=== PATIENT | female | born 1955 | race Caucasian/White ===

== ENCOUNTER 2020-11-16 20:03 | Emergency (ER) | payer MEDICARE ==
[2020-11-16 23:20] LABS: Absolute Lymphocytes (CBC) 1.1 K/uL (0.7-4.9); Basophils % 0.5 % (0-1.3); Hematocrit 35.6 % (36.0-45.0); Lymphocytes % 13.2 % (15.3-44.8)
[2020-11-16 23:24] LABS: Protime INR 1.03
[2020-11-17 00:08] LABS: ALT/SGPT 32 U/L (12-78); AST/SGOT 14 U/L (15-37); Albumin 3.2 g/dL (3.4-5.0); Alkaline Phosphatase 144 U/L (45-117); BUN Blood Urea Nitrogen 19 mg/dL (7-18); Bicarbonate 25 mmol/L (21-32); Bilirubin Direct 0.1 mg/dL (0-0.2); Bilirubin Total 0.6 mg/dL (0.2-1.0); Ferritin 571.1 ng/mL (8-388); Lipase 116 U/L (73-393); Potassium 3.6 mmol/L (3.5-5.1); Protein, Total 7.8 g/dL (6.4-8.2); Sodium Level 132 mmol/L (136-145); Troponin (Emerg Dept Use Only) < 0.02 ng/mL (0.0-0.045)
[2020-11-17 00:09] LABS: Glucose Level 437 mg/dL (74-106)
[2020-11-17 01:03] LABS: SARS-COV-2 RT PCR POSITIVE (NEGATIVE)
[2020-11-17] MEDS ORDERED: NA CHLORIDE 0.9% 0 ML ONE (01:53)
[2020-11-17] MEDS ORDERED: NA CHLORIDE 0.9% 1,000 ML ONE ×2 (02:52→02:58)
[2020-11-17] MEDS ORDERED: INSULIN -REGULAR HUMAN 50 UNIT/0.5 ML ML ONE (02:58)
[2020-11-17 03:39] LABS: Urine Bacteria <20 /HPF (<20)
[2020-11-17 03:40] LABS: Urine RBC <5 /HPF (NONE SEEN)
[2020-11-17] MEDS ORDERED: CEFTRIAXONE/SWI 1gm 1 GM/10 ML SYR ONE (04:57)
[2020-11-17] MEDS ORDERED: AZITHROMYCIN 500 MG INJ IVPB ONE (04:57)
[2020-11-17] MEDS ORDERED: NA CHLORIDE 0.9% 250 ML ONE (04:58)
--- NOTE | 2020-11-17 04:59 | ER ---
Nurse's Notes [facility] Name: Leia Beckford Age: 65 yrs Sex: Female : 1955 Arrival Date: 11/16/2020 Time: 20:13 Bed 26 Private MD: Mita Luo Diagnosis: Coronavirus infection, unspecified;Constipation;Abdominal tenderness Presentation: 11/16 20:16 Chief complaint: Patient states: Covid positive 11/12 at [facility], sick since 11/04/20. Fever ll1 101 at home. O2 sat 91% at home. + diarrhea. Coronavirus screen: Client denies travel out of the [place] in the last 14 days. cough unrelated to allergies, difficulty breathing, fatigue, fever, shortness of breath, loss of taste or smell, Client presents with at least one sign or symptom that may indicate coronavirus-19. Standard/surgical mask placed on the client. Ebola Screen: Patient denies travel to an Ebola-affected area in the 21 days before illness onset. Initial Sepsis Screen: Does the patient meet any 2 criteria? HR > 90 bpm. No. Patient's initial sepsis screen is negative. Does the patient have a suspected source of infection? Yes: Productive cough/pneumonia. Risk Assessment: Do you want to hurt yourself or someone else? Patient reports no desire to harm self or others. Onset of symptoms was November 04, 2020. 20:16 Method Of Arrival: Ambulatory ll1 20:16 Acuity: RICK 3 ll1 Triage Assessment: 11/17 03:33 General: Appears in no apparent distress. Respiratory: Reports shortness of breath at ll2 rest on exertion Onset: The symptoms/episode began/occurred gradually, the patient has mild shortness of breath. Historical: - Allergies: 11/16 20:18 Latex, Natural Rubber; ll1 20:18 Hydrocodone-Acetaminophen; ll1 - PMHx: 20:18 Hypertension; Diabetes - IDDM; High Cholesterol; ll1 - PSHx: 20:18 cataract repair; Hysterectomy; ll1 - Immunization history:: Flu vaccine is not up to date. - Social history:: Smoking status: Patient denies any tobacco usage or history of. Screenin:00 Abuse screen: Denies threats or abuse. Nutritional screening: No deficits noted. ll2 Tuberculosis screening: No symptoms or risk factors identified. Fall Risk None identified. Assessment: 22:00 General: Appears in no apparent distress. Behavior is calm, cooperative, appropriate ll2 for age. Pain: Denies pain. Neuro: Level of Consciousness is awake, alert, obeys commands, Oriented to person, place, time, situation. Cardiovascular: Patient's skin is warm and dry. Respiratory: Airway is patent Respiratory effort is even, unlabored, Respiratory pattern is regular, symmetrical. GI: No signs and/or symptoms were reported involving the gastrointestinal system. : No signs and/or symptoms were reported regarding the genitourinary system. EENT: No signs and/or symptoms were reported regarding the EENT system. Derm: Skin is dry, Skin is pink, warm \T\ dry. Skin temperature is warm. Musculoskeletal: Circulation, motion, and sensation intact. Range of motion: intact in all extremities. 23:08 Reassessment: Patient and/or family updated on plan of care and expected duration. Pain ll2 level reassessed. Patient is alert, oriented x 3, equal unlabored respirations, skin warm/dry/pink. 11/17 00:15 Reassessment: Patient and/or family updated on plan of care and expected duration. Pain ll2 level reassessed. Patient is alert, oriented x 3, equal unlabored respirations, skin warm/dry/pink. 01:10 Reassessment: Patient and/or family updated on plan of care and expected duration. Pain ll2 level reassessed. Patient is alert, oriented x 3, equal unlabored respirations, skin warm/dry/pink. 02:15 Reassessment: Patient and/or family updated on plan of care and expected duration. Pain ll2 level reassessed. Patient is alert, oriented x 3, equal unlabored respirations, skin warm/dry/pink. 03:26 Reassessment: Patient and/or family updated on plan of care and expected duration. Pain ll2 level reassessed. Patient is alert, oriented x 3, equal unlabored respirations, skin warm/dry/pink. 03:33 Respiratory: Breath sounds are clear. ll2 04:20 Reassessment: Patient and/or family updated on plan of care and expected duration. Pain ll2 level reassessed. Patient is alert, oriented x 3, equal unlabored respirations, skin warm/dry/pink. 05:31 Reassessment: Patient and/or family updated on plan of care and expected duration. Pain ll2 level reassessed. Patient is alert, oriented x 3, equal unlabored respirations, skin warm/dry/pink. pt up for D/C, charge nurse allowed pt to stay until daylight. Vital Signs: 11/16 20:16 BP 133 / 62; Pulse 105; Resp 18; Temp 100.0; Pulse Ox 94% on R/A; Weight 79.38 kg; ll1 Height 5 ft. 5 in. (165.10 cm); Pain 4/10; 22:00 BP 129 / 48; Pulse 89; Resp 20; Pulse Ox 96% on R/A; ll2 23:00 BP 119 / 46; Pulse 91; Resp 20; Pulse Ox 96% on R/A; ll2 11/17 00:00 BP 125 / 48; Pulse 94; Resp 20; Pulse Ox 94% on R/A; ll2 01:09 BP 113 / 41; Pulse 82; Resp 20; Pulse Ox 95% on R/A; ll2 02:15 BP 121 / 53; Pulse 78; Resp 18; Pulse Ox 94% on R/A; ll2 11/16 20:16 Body Mass Index 29.12 (79.38 kg, 165.10 cm) ll1 ED Course: 11/16 20:13 Patient arrived in ED. am2 20:13 Mita Luo MD is Private Physician. am2 20:17 Triage completed. ll1 20:18 Arm band placed on. ll1 21:52 Stephanie Hall, SOL is Primary Nurse. ll2 21:55 Nic Duke MD is Attending Physician. tw4 22:00 Patient has correct armband on for positive identification. Placed in gown. Bed in low ll2 position. Call light in reach. Side rails up X 1. school bus monitor on. Pulse ox on. NIBP on. 22:00 No provider procedures requiring assistance completed. Inserted saline lock: 20 gauge ll2 in right antecubital area, using aseptic technique. Blood collected. 22:35 CXR XRAY In Process Unspecified. EDMS 11/17 00:18 COVID swab sent to lab. ll2 02:15 Inserted saline lock: 22 gauge in left antecubital area, using aseptic technique. em 02:30 CT Abd/Pelvis - IV Contrast Only In Process Unspecified. EDMS 04:02 Urine Dipstick--Ancillary (enter results) Sent. ll2 05:51 Blood Culture Adult (2) Sent. ll2 05:51 PT-INR Sent. ll2 05:51 CBC with Diff Sent. ll2 05:51 D-Dimer Sent. ll2 05:51 Lipase Sent. ll2 05:51 Procalcitonin Sent. ll2 05:51 Lactate Sent. ll2 05:51 Flu Sent. ll2 06:04 IV discontinued, intact, bleeding controlled, No redness/swelling at site. Pressure ll2 dressing applied. Administered Medications: 01:41 Drug: NS 0.9% 1000 ml Route: IV; Rate: 1 bolus; Site: right antecubital; 2 02:45 Follow up: Response: No adverse reaction; IV Status: Completed infusion; IV Intake: ll2 1000ml 02:41 Drug: Insulin Regular Human 5 units {Co-Signature: 2 (Stephanie Hall RN).} Route: IVP; Site: left antecubital; 04:26 Follow up: Response: No adverse reaction ll2 02:41 Drug: NS 0.9% 1000 ml Route: IV; Rate: 1 bolus; Site: left antecubital; 04:25 Follow up: Response: No adverse reaction; IV Status: Completed infusion; IV Intake: ll2 1000ml 04:53 Drug: AZITHromycin 500 mg Route: IVPB; Infused Over: 1 hrs; Site: left antecubital; 2 04:53 Drug: Rocephin - (cefTRIAXone) 1 grams Route: IVPB; Infused Over: 30 mins; Site: left ll2 antecubital; Intake: 02:45 IV: 1000ml; Total: 1000ml. ll2 04:25 IV: 1000ml; Total: 2000ml. ll2 Outcome: 03:33 Condition: stable ll2 04:59 Discharge ordered by . tw4 06:02 Discharged to home ambulatory. ll2 06:02 Discharge instructions given to patient, Instructed on discharge instructions, follow up and referral plans. medication usage, Demonstrated understanding of instructions, follow-up care, medications, Prescriptions given X 2. 06:05 Patient left the ED. ll2 Signatures: Dispatcher [employer] Juve Garvey, RN SOL Rosalina Antunez Winsy, RN RN wh Nic Duke MD MD tw4 Stephanie Hall, RN RN ll2 Dash Ribera RN RN ll1 Stephanie Hall RN ll2
--- NOTE | 2020-11-17 05:00 | EDPHYS ---
Physician Documentation [facility] Name: Leia Beckford Age: 65 yrs Sex: Female : 1955 Arrival Date: 11/16/2020 Time: 20:13 Bed 26 Private MD: Mita Luo ED Physician Nic Duke HPI: 11/17 04:08 This 65 yrs old Female presents to ER via Ambulatory with complaints of tw4 Shortness Of Breath, Fever. 04:08 The patient has shortness of breath at rest. Onset: The symptoms/episode began/occurred tw4 2 week(s) ago. Duration: The symptoms are continuous, and are steadily getting worse. The patient's shortness of breath is aggravated by exertion, is alleviated by nothing. The patient has not experienced similar symptoms in the past. PT STATES THAT SHE IS COVID POSITIVE. Historical: - Allergies: 11/16 20:18 Latex, Natural Rubber; ll1 20:18 Hydrocodone-Acetaminophen; ll1 - PMHx: 20:18 Hypertension; Diabetes - IDDM; High Cholesterol; ll1 - PSHx: 20:18 cataract repair; Hysterectomy; ll1 - Immunization history:: Flu vaccine is not up to date. - Social history:: Smoking status: Patient denies any tobacco usage or history of. ROS: 11/17 04:08 Constitutional: Negative for fever, chills, and weight loss, Eyes: Negative for injury, tw4 pain, redness, and discharge, Cardiovascular: Negative for chest pain, palpitations, and edema, Back: Negative for injury and pain, MS/Extremity: Negative for injury and deformity, Skin: Negative for injury, rash, and discoloration, Neuro: Negative for headache, weakness, numbness, tingling, and seizure. Respiratory: Positive for cough, shortness of breath. Abdomen/GI: Positive for abdominal pain, nausea, vomiting, abdominal cramps. Exam: 04:08 Constitutional: This is a well developed, well nourished patient who is awake, alert, tw4 and in no acute distress. Head/Face: Normocephalic, atraumatic. Chest/axilla: Normal chest wall appearance and motion. Nontender with no deformity. No lesions are appreciated. Cardiovascular: Regular rate and rhythm with a normal S1 and S2. No gallops, murmurs, or rubs. Normal PMI, no JVD. No pulse deficits. Respiratory: Lungs have equal breath sounds bilaterally, clear to auscultation and percussion. No rales, rhonchi or wheezes noted. No increased work of breathing, no retractions or nasal flaring. Abdomen/GI: Soft, non-tender, with normal bowel sounds. No distension or tympany. No guarding or rebound. No evidence of tenderness throughout. Back: No spinal tenderness. No costovertebral tenderness. Full range of motion. MS/ Extremity: Pulses equal, no cyanosis. Neurovascular intact. Full, normal range of motion. Neuro: Awake and alert, GCS 15, oriented to person, place, time, and situation. Cranial nerves II-XII grossly intact. Motor strength 5/5 in all extremities. Sensory grossly intact. Cerebellar exam normal. Normal gait. Vital Signs: 11/16 20:16 BP 133 / 62; Pulse 105; Resp 18; Temp 100.0; Pulse Ox 94% on R/A; Weight 79.38 kg; ll1 Height 5 ft. 5 in. (165.10 cm); Pain 4/10; 22:00 BP 129 / 48; Pulse 89; Resp 20; Pulse Ox 96% on R/A; ll2 23:00 BP 119 / 46; Pulse 91; Resp 20; Pulse Ox 96% on R/A; ll2 11/17 00:00 BP 125 / 48; Pulse 94; Resp 20; Pulse Ox 94% on R/A; ll2 01:09 BP 113 / 41; Pulse 82; Resp 20; Pulse Ox 95% on R/A; ll2 02:15 BP 121 / 53; Pulse 78; Resp 18; Pulse Ox 94% on R/A; ll2 11/16 20:16 Body Mass Index 29.12 (79.38 kg, 165.10 cm) ll1 MDM: 11/16 21:55 Patient medically screened. tw4 11/17 04:08 Antibiotic administration: Not indicated. Data reviewed: vital signs, nurses notes. tw Data interpreted: Pulse oximetry: Interpretation: normal. Counseling: I had a detailed discussion with the patient and/or guardian regarding: the historical points, exam findings, and any diagnostic results supporting the discharge/admit diagnosis, lab results, radiology results. 11/16 22:19 Order name: Blood Culture Adult (2) 11/16 22:19 Order name: BMP 11/16 22:19 Order name: C-Reactive Protein 11/16 22:19 Order name: CBC with Diff 11/16 22:19 Order name: D-Dimer 11/16 22:19 Order name: Ferritin [facility] 11/16 22:19 Order name: Flu [facility] 11/16 22:19 Order name: Lactate 11/16 22:19 Order name: LFT's [facility] 11/16 22:19 Order name: Lipase [facility] 11/16 22:19 Order name: Procalcitonin 11/16 22:19 Order name: PT-INR 11/16 22:19 Order name: Ptt, Activated 11/16 22:19 Order name: Strep 11/16 22:19 Order name: Troponin (emerg Dept Use Only); Complete Time: 01:00 11/17 01:04 Interpretation: Within normal limits: TROPED < 0.02. 11/16 22:19 Order name: Urine Microscopic Only; Complete Time: 04:19 11/16 22:19 Order name: Blood Culture [facility] 11/16 22:19 Order name: Basic Metabolic Panel; Complete Time: 01:00 EDTX 11/17 01:00 Interpretation: Normal except: NA 132; GLUC 437; CL 96; BUN 19; GFR 51. 11/16 22:19 Order name: C-Reactive Protein; Complete Time: 01:00 EDTX 11/17 01:01 Interpretation: Abnormal: C-REACTIVE PROT 88.20. 11/16 22:19 Order name: CBC with Automated Diff; Complete Time: 01:00 MS 11/17 01:02 Interpretation: Normal except: HGB 11.7; HCT 35.6; LYM% 13.2; ZAK% 79.4. 11/16 22:19 Order name: D-Dimer; Complete Time: 01:00 EDMS 11/17 01:03 Interpretation: Normal except: D-DIMER 504. 11/16 22:20 Order name: Ferritin; Complete Time: 01:00 EDMS 11/17 01:03 Interpretation: Abnormal: SONI 571.1. 11/16 22:20 Order name: Lactate; Complete Time: 01:00 EDMS 11/17 01:03 Interpretation: Abnormal: LAC 3.0. 11/16 22:20 Order name: Liver (Hepatic) Function; Complete Time: 01:00 EDMS 11/17 01:04 Interpretation: Normal except: AST 14; ALK 144; ALB 3.2; GLOB 4.6; A/G 0.7. 11/16 22:20 Order name: Lipase; Complete Time: 01:00 EDMS 11/16 22:20 Order name: Procalcitonin; Complete Time: 01:00 EDMS 11/17 01:04 Interpretation: Within normal limits: Procalcitonin < 0.05. 11/16 22:20 Order name: Protime (+INR); Complete Time: 01:00 EDTX 11/16 22:20 Order name: PTT, Activated Partial Thromb; Complete Time: 01:00 EDTX 11/16 22:19 Order name: CXR XRAY 11/16 22:19 Order name: EKG; Complete Time: 22:20 11/16 22:19 Order name: Cardiac monitoring; Complete Time: 23:29 11/16 22:19 Order name: Droplet/Contact Precautions; Complete Time: 23:29 11/16 22:19 Order name: EKG - Nurse/Tech; Complete Time: 23:29 11/16 22:19 Order name: IV Start; Complete Time: 23:29 11/16 22:19 Order name: Labs collected and sent; Complete Time: 23:29 11/16 22:19 Order name: O2 Per Protocol; Complete Time: 23:30 11/16 22:19 Order name: O2 Sat Monitoring; Complete Time: 03:11 11/16 22:19 Order name: Urine Dipstick-Ancillary (obtain specimen); Complete Time: 05:50 11/17 01:04 Order name: COVID-19/FLU A+B; Complete Time: 01:26 EDMS 11/17 01:27 Order name: CT Abd/Pelvis - IV Contrast Only 11/17 03:08 Order name: Lactate Sepsis 2 HR Follow-up; Complete Time: 04:18 EDMS 11/17 03:40 Order name: Urine Culture EDTX 11/17 03:50 Order name: Urine Dipstick--Ancillary (enter results) bb 11/17 03:51 Order name: Urine Dipstick-Ancillary EDMS 11/17 04:18 Order name: Lactate tw4 11/17 04:44 Order name: Glucose, Ancillary Testing; Complete Time: 04:54 EDMS 11/17 05:43 Order name: Throat Culture EDMS Administered Medications: 01:41 Drug: NS 0.9% 1000 ml Route: IV; Rate: 1 bolus; Site: right antecubital; 2 02:45 Follow up: Response: No adverse reaction; IV Status: Completed infusion; IV Intake: ll2 1000ml 02:41 Drug: Insulin Regular Human 5 units {Co-Signature: 2 (Stephanie Hall RN).} Route: IVP; Site: left antecubital; 04:26 Follow up: Response: No adverse reaction ll2 02:41 Drug: NS 0.9% 1000 ml Route: IV; Rate: 1 bolus; Site: left antecubital; 04:25 Follow up: Response: No adverse reaction; IV Status: Completed infusion; IV Intake: ll2 1000ml 04:53 Drug: AZITHromycin 500 mg Route: IVPB; Infused Over: 1 hrs; Site: left antecubital; ll2 04:53 Drug: Rocephin - (cefTRIAXone) 1 grams Route: IVPB; Infused Over: 30 mins; Site: left ll2 antecubital; Disposition: 11/17/20 04:59 Discharged to Home. Impression: Coronavirus infection, unspecified, Constipation, Abdominal tenderness. - Condition is Stable. - Discharge Instructions: Shortness of Breath, Abdominal Pain, Adult, Nfio-[id number], COVID-19. - Prescriptions for Zithromax Z- Leonel 250 mg Oral Tablet - take 1 tablet by ORAL route as directed for 5 days Day 1 - take two (2) tablets one time. Day 2, 3, 4 , 5 take one (1) tablet once daily.; 6 tablet. Albuterol Sulfate 90 mcg/actuation - inhale 1-2 puff by INHALATION route every 4-6 hours; 1 Inhaler. - Medication Reconciliation Form, Thank You Letter, Antibiotic Education, Prescription Opioid Use form. - Follow up: Private Physician; When: Upon discharge from the Emergency Department; Reason: If symptoms return, Recheck today's complaints, Continuance of care, Re-evaluation by your physician. - Problem is new. - Symptoms have improved. Signatures: Dispatcher [employer] [facility] Tiff Conte, RN RN Nic Duke MD MD tw4 Stephanie Hall, RN RN ll2 Dash Ribera RN RN ll1 Stephanie Hall RN ll2 Corrections: (The following items were deleted from the chart) 11/16 23:30 22:20 Influenza Screen (A ordered. [facility] 23:30 22:20 CORONAVIRUS+MR.LAB.BRZ ordered. [facility] 11/17 04:50 04:26 LACTATE+C.LAB.BRZ ordered. [facility] 06:05 04:59 11/17/2020 04:59 Discharged to Home. Impression: Coronavirus infection, ll2 unspecified; Constipation; Abdominal tenderness. Condition is Stable. Forms are Medication Reconciliation Form, Thank You Letter, Antibiotic Education, Prescription Opioid Use. Follow up: Private Physician; When: Upon discharge from the Emergency Department; Reason: If symptoms return, Recheck today's complaints, Continuance of care, Re-evaluation by your physician. Problem is new. Symptoms have improved. tw4
[2020-11-17 06:10] LABS: Urine Blood NEGATIVE (NEG); Urine Glucose 2+ (NEG); Urine Protein TRACE (NEG); Urine pH 5.5 (5.0-7.0)
--- NOTE | 2020-11-17 08:04 | RAD REPORT ---
EXAM DESCRIPTION: Jason Single View2 10:35 pm CLINICAL HISTORY: Shortness of breath COMPARISON: none FINDINGS: Mild bilateral pulmonary opacities. The heart is normal size IMPRESSION: Mild bilateral pulmonary opacities likely pneumonia
--- NOTE | 2020-11-17 10:55 | RAD REPORT ---
EXAM DESCRIPTION: CT - Abdomen Pelvis W Contrast - 11/17/2020 6:56 am CLINICAL HISTORY: The patient is 65 years old and is Female; ABD PAIN TECHNIQUE: Axial computed tomography images of the abdomen and pelvis with intravenous contrast. S agittal and coronal reformatted images were created and reviewed. This CT exam was performed using one or more of the following dose reduction techniques: automated exposure control, adjustment of t he mA and/or kV according to patient size, and/or use of iterative reconstruction technique. COMPARISON: No relevant prior studies available. FINDINGS: LUNG BASES: Minimal dependent densities in the lung bases are present. ABDOMEN: LIVER: The liver is enlarged and diffusely fatty. GALLBLADDER AND BILE DUCTS: No calcified stones. No ductal dilation. PANCREAS: No ductal dilation. No mass. SPLEEN: Unremarkable. ADRENALS: Unremarkable. No mass. KIDNEYS AND URETERS: Unremarkable. The kidneys enhance symmetrically. No obstructing renal or ur eteral calculus is seen. No hydronephrosis or hydroureter. No perinephric fluid or stranding. STOMACH AND BOWEL: The stomach is minimally filled with fluid and air. The small bowel is relati vely normal in caliber. A moderate amount stool is present throughout the colon. There is no mucosal thickening or evidence of bowel obstruction. PELVIS: APPENDIX: No findings to suggest acute appendicitis. BLADDER: The bladder is well distended. REPRODUCTIVE: The patient is status post hysterectomy. ABDOMEN and PELVIS: INTRAPERITONEAL SPACE: Unremarkable. No free air. No significant fluid collection. BONES/JOINTS: Mild degenerative changes spine is present. SOFT TISSUES: The soft tissues are normal. VASCULATURE: Atherosclerosis of the vasculature is present. The vessels are normal in caliber. No abdominal aortic aneurysm. LYMPH NODES: Unremarkable. No enlarged lymph nodes. IMPRESSION: 1. Dependent densities in the lung bases suggestive of atelectasis/scarring. 2. Moderate stool burden without obstruction. Electronically signed by: Lyndsay Nova MD 11/17/2020 2:46 AM DIETITIAN Due to temporary technical issues with the PACS/Fluency reporting system, reports are being signed by the in house radiologist without review as a courtesy to ensure prompt reporting. The interpreting r adiologist is fully responsible for the content of the report.
[2020-11-17 11:52] VITALS: BP 119/46; O2SAT 96
== END 2020-11-17 06:05 | disposition home or self-care (01) ==
LOC: ER 20:03
DX: U07.1 COVID-19 (principal); K59.00 Constipation, unspecified; E11.9 Type 2 diabetes mellitus without complications; E78.00 Pure hypercholesterolemia, unspecified; I10 Essential (primary) hypertension; Z79.4 Long term (current) use of insulin
CPT/HCPCS: 96361; 87040 ×2; 87070; 87088; 85025; 87086; 80048; 36415 ×2; 85610; 82947; 85379; 80076; 87081; 83605 ×3; 85730; 87077; 87186; 84484; 82728; 83690; 84145; 0240U; 86140; 74177; 71045; 96375; 96374; 99284; Q9967; J0456; J0696; J7050; J7030 ×2; 81003; 81015

== ENCOUNTER 2020-12-06 16:06 | Emergency (ER) | payer MEDICARE ==
--- OUTSIDE RECORDS SUMMARY | 2020-12-06 16:09 | XMS REPORT | Continuity of Care Document ---
:1955 Author Organization [facility] t Address [address] [place] [address] Care Team Providers Name Role Phone Unavailable Unavailable Unavailable Problems This patient has no known problems. Allergies, Adverse Reactions, Alerts This patient has no known allergies or adverse reactions. Medications This patient has no known medications. Procedures This patient has no known procedures. Encounters Start End Encounter Admission Attending Care Care Encounter Source Date/Time Date/Time Type Type Clinicians Facility Department ID 2020-11-30 2020-11-30 Outpatient [facility] [id number] 00:00[facility]00 00[facility]00[facility]00 [facility] 2020-11-26 2020-11-26 Outpatient [facility] [id number] 00:00[facility]00 00[facility]00[facility]00 [facility] 2020-11-25 2020-11-25 Outpatient [facility] [id number] 00:00:00 00[facility]00[facility] 2020-11-18 2020-11-18 Outpatient [facility] [id number] [facility] 2020-11-16 2020-11-16 Outpatient [facility] [id number] 00:00[facility]00 00[facility]00:00 [facility] 2020-11-05 2020-11-05 [facility] [id number] [facility] 2020-11-03 2020-11-03 [facility] [id number] [facility] 2020-10-20 2020-10-20 [facility] [id number] [facility] 2020-10-07 2020-10-07 [facility] [id number] [facility] 2020-10-07 2020-10-07 Out[facility] [id number] [facility] 2020-10-07 2020-10-07 [facility] [id number] [facility] 2020-10-04 2020-10-04 [facility] [id number] [facility] 2020-09-23 2020-09-23 Out[facility] [id number] [facility] 2020-08-31 2020-08-31 Outpatient [facility] [id number] [facility] Results This patient has no known results.
[2020-12-06] MEDS ORDERED: NA CHLORIDE 0.9% 1,000 ML ONE ×2 (18:49→21:46)
[2020-12-06 19:27] LABS: Absolute Lymphocytes (CBC) 1.9 K/uL (0.7-4.9); Basophils % 1.3 % (0-1.3); Hematocrit 37.8 % (36.0-45.0); Lymphocytes % 37.1 % (15.3-44.8); MPV 9.9 fL (7.6-11.3); RBC Red Blood Cell Count 4.26 M/uL (3.86-4.86)
[2020-12-06 19:38] LABS: Creatine Phosphokinase 52 U/L (26-192); Troponin I < 0.02 ng/mL (0.0-0.045)
[2020-12-06 19:45] LABS: ALT/SGPT 35 U/L (12-78); AST/SGOT 27 U/L (15-37); Albumin 3.9 g/dL (3.4-5.0); Alkaline Phosphatase 151 U/L (45-117); BUN Blood Urea Nitrogen 18 mg/dL (7-18); Bicarbonate 28 mmol/L (21-32); Bilirubin Direct 0.1 mg/dL (0-0.2); Bilirubin Total 0.4 mg/dL (0.2-1.0); Lipase 104 U/L (73-393); Magnesium 2.4 mg/dL (1.8-2.4); Potassium 3.9 mmol/L (3.5-5.1); Sodium Level 136 mmol/L (136-145)
[2020-12-06 19:51] LABS: Glucose Level 455 mg/dL (74-106)
[2020-12-06] MEDS ORDERED: INSULIN -REGULAR HUMAN 50 UNIT/0.5 ML ML ONE (21:45)
[2020-12-06 21:53] LABS: Urine Bacteria NONE SEEN /HPF (<20); Urine RBC <5 /HPF (NONE SEEN)
[2020-12-06 21:53] LABS: Urine Blood NEGATIVE (NEG); Urine Glucose 2+ (NEG); Urine Protein NEGATIVE (NEG); Urine pH 5.5 (5.0-7.0)
--- NOTE | 2020-12-06 23:16 | EDPHYS ---
Physician Documentation [facility] Name: Leia Beckford Age: 65 yrs Sex: Female : 1955 Arrival Date: 12/06/2020 Time: 16:11 Bed 25 Private MD: Mita Luo ED Physician Yair Jarquin HPI: 12/06 18:05 This 65 yrs old Female presents to ER via Ambulatory with complaints of High cp Blood Sugar. 18:05 The patient or guardian reports hyperglycemia, that was potentially precipitated by no cp particular event. Onset: The symptoms/episode began/occurred gradually. 18:05 Associated signs and symptoms: Pertinent positives: flank pain, Pertinent negatives: cp abdominal pain, chest pain. 18:05 Current symptoms: In the emergency department the patient's symptoms are unchanged from cp the initial presentation, despite home interventions. 18:05 Patient reports she currently takes prescribed glimepiride and has been prescribed cp Trulicity but is unable to afford medication. Patient reports she has been intolerant of Metfomin in the past. Historical: - Allergies: 16:26 Hydrocodone-Acetaminophen; ca1 16:26 Latex, Natural Rubber; ca1 - Home Meds: 16:26 Glimepiride Oral [Active]; rosuvastatin oral oral [Active]; Lisinopril Oral [Active]; ca1 - PMHx: 16:26 Diabetes - IDDM; High Cholesterol; Hypertension; Diabetes - NIDDM; ca1 - PSHx: 16:26 cataract repair; Hysterectomy; ca1 - Immunization history:: Flu vaccine is not up to date. - Social history:: Smoking status: Patient denies any tobacco usage or history of. ROS: 18:10 Constitutional: Negative for body aches, chills, fever, poor PO intake. cp 18:10 Eyes: Negative for injury, pain, redness, and discharge. cp 18:10 ENT: Negative for ear pain, sore throat, difficulty swallowing, difficulty handling secretions. 18:10 Cardiovascular: Negative for chest pain, edema, palpitations. 18:10 Respiratory: Negative for cough, shortness of breath, wheezing. 18:10 Abdomen/GI: Negative for abdominal pain, nausea, vomiting, and diarrhea, constipation. 18:10 Back: Positive for flank pain. 18:10 : Negative for hematuria, burning with urination. 18:10 Neuro: Negative for altered mental status, dizziness, headache, weakness. 18:10 Endocrine: Positive for polyuria. 18:10 All other systems are negative. Exam: 18:15 Constitutional: The patient appears in no acute distress, alert, awake, comfortable, cp non-diaphoretic, non-toxic, well developed, well nourished. 18:15 Head/Face: Normocephalic, atraumatic. cp 18:15 Eyes: Periorbital structures: appear normal, Conjunctiva: normal, no exudate, no cp injection, Sclera: no appreciated abnormality, Lids and lashes: appear normal, bilaterally. 18:15 ENT: External ear(s): are unremarkable, Nose: is normal, Mouth: Lips: moist, Oral cp mucosa: moist, Posterior pharynx: Airway: no evidence of obstruction, patent. 18:15 Neck: ROM/movement: is normal, is supple, without pain, no range of motions limitations, no nuchal rigidity. 18:15 Chest/axilla: Inspection: normal, Palpation: is normal, no crepitus, no tenderness. 18:15 Cardiovascular: Rate: normal, Rhythm: regular, Edema: is not appreciated, JVD: is not appreciated. 18:15 Respiratory: the patient does not display signs of respiratory distress, Respirations: normal, no use of accessory muscles, no retractions, labored breathing, is not present, Breath sounds: are clear throughout, no decreased breath sounds. 18:15 Abdomen/GI: Inspection: abdomen appears normal, Palpation: abdomen is soft and non-tender, in all quadrants. 18:15 Back: pain, that is mild, of the mid back area, ROM is normal. 18:15 Skin: cellulitis, is not appreciated, no rash present. 18:15 Neuro: Orientation: to person, place \T\ time. Mentation: is normal, Cerebellar function: is grossly normal, Motor: moves all fours, strength is normal, Sensation: is normal. 19:40 ECG was reviewed by the Attending Physician. cp Vital Signs: 16:17 BP 126 / 53; Pulse 88; Resp 16 S; Temp 97.1(TE); Pulse Ox 98% on R/A; Weight 72.57 kg ca1 (R); Height 5 ft. 5 in. (165.10 cm) (R); Pain 0/10; 18:00 BP 137 / 59; Pulse 70; Resp 18; Pulse Ox 98% on R/A; zb 19:07 BP 123 / 71; Pulse 69; Resp 16; Pulse Ox 96% on R/A; zb 20:00 BP 115 / 69; Pulse 65; Resp 16; Pulse Ox 100% on R/A; zb 21:03 BP 128 / 90; Pulse 66; Resp 16; Pulse Ox 98% on R/A; zb 22:30 BP 136 / 65; Pulse 76; Resp 16; Pulse Ox 98% on R/A; zb 23:30 BP 137 / 62; Pulse 63; Resp 16; Pulse Ox 97% on R/A; zb 16:17 Body Mass Index 26.63 (72.57 kg, 165.10 cm) ca1 MDM: 17:52 Patient medically screened. trevor 19:00 Differential diagnosis: DKA, sepsis, UTI. cp 23:15 Data reviewed: vital signs, nurses notes, lab test result(s), radiologic studies, CT cp scan. 23:15 Counseling: I had a detailed discussion with the patient and/or guardian regarding: the cp historical points, exam findings, and any diagnostic results supporting the discharge/admit diagnosis, lab results, radiology results, the need for outpatient follow up, for definitive care, a family practitioner, to return to the emergency department if symptoms worsen or persist or if there are any questions or concerns that arise at home. Response to treatment: the patient's symptoms have markedly improved after treatment, Serum glucose markedly improved. Labs not indicative of DKA. Will discharge to home for continued monitoring. 12/06 16:39 Order name: Glucose, Ancillary Testing; Complete Time: 17:51 EDMS 12/06 17:51 Interpretation: Reviewed. cp 12/06 18:03 Order name: Basic Metabolic Panel cp 12/06 18:03 Order name: CBC with Diff; Complete Time: 20:03 cp 12/06 21:44 Interpretation: Reviewed. cp 12/06 18:03 Order name: Hepatic Function cp 12/06 18:03 Order name: Lipase cp 12/06 18:03 Order name: Urine Microscopic Only cp 12/06 18:03 Order name: Ketone, Serum cp 12/06 19:31 Interpretation: Within normal limits: ACET NEG. cp 12/06 18:04 Order name: Magnesium cp 12/06 18:04 Order name: Basic Metabolic Panel EDMS 12/06 18:08 Order name: Troponin I cp 12/06 18:08 Order name: CK cp 12/06 18:09 Order name: Troponin I; Complete Time: 20:03 EDMS 12/06 20:03 Interpretation: Within normal limits: TROP < 0.02. cp 12/06 18:09 Order name: Creatine Phosphokinase; Complete Time: 20:03 EDMS 12/06 21:06 Order name: Urine Dipstick--Ancillary (enter results) tt3 12/06 18:03 Order name: IV Saline Lock; Complete Time: 18:31 cp 12/06 18:03 Order name: Labs collected and sent; Complete Time: 18:31 cp 12/06 18:03 Order name: Urine Dipstick-Ancillary (obtain specimen); Complete Time: 20:48 cp 12/06 18:08 Order name: EKG; Complete Time: 18:09 cp 12/06 18:08 Order name: EKG - Nurse/Tech; Complete Time: 19:30 cp 12/06 21:13 Order name: CT Stone Protocol 12/06 22:33 Order name: Accucheck Blood Glucose; Complete Time: 23:27 cp 12/06 23:46 Order name: Glucose, Ancillary Testing EDMS EC:40 Rate is 64 beats/min. Rhythm is regular. FL interval is normal. QRS interval is normal. cp QT interval is normal. Interpreted by me. Reviewed by me. Administered Medications: 18:31 Drug: NS 0.9% 1000 ml Route: IV; Rate: 1 bolus; Site: right antecubital; zb 19:00 Follow up: Response: No adverse reaction; IV Status: Completed infusion; IV Intake: zb 1000ml 21:38 Drug: NovoLIN R 10 units {Co-Signature: usha (Clara Barr RN).} Route: Sub-Q; Site: zb left lower abdomen; 23:28 Follow up: Response: No adverse reaction; Marked relief of symptoms zb 21:39 Drug: NS 0.9% 1000 ml Route: IV; Rate: 1 bolus; Site: right antecubital; zb 23:29 Follow up: Response: No adverse reaction; IV Status: Completed infusion; IV Intake: zb 1000ml Point of Care Testing: Blood Glucose: 16:17 Blood Glucose: High (>450 mg/dL); ca1 Ranges: Critical Glucose Levels:Adult <50 mg/dl or >400 mg/dl <40 mg/dl or >180 mg/dl Disposition: 12/07 09:47 Co-signature as Attending Physician, Yair Jarquin MD I agree with the assessment and [facility] plan of care. Disposition: 12/06/20 23:16 Discharged to Home. Impression: Diabetes mellitus due to underlying condition with hyperglycemia. - Condition is Stable. - Discharge Instructions: Form - Daily Diabetes Record, Blood Glucose Monitoring, Adult, Diabetes Mellitus and Food. - Medication Reconciliation Form, Thank You Letter, Antibiotic Education, Prescription Opioid Use form. - Follow up: Mita Luo MD; When: Tomorrow; Reason: Recheck today's complaints. - Problem is new. - Symptoms have improved. Signatures: Dispatcher [employer] EDYair Phillips MD MD cha Page, Corey, PA PA cp Acob, Cheryl RN Koki Oconnell RN RN zb Elena Antunez RN ea Corrections: (The following items were deleted from the chart) 00:18 12/06 23:16 12/06/2020 23:16 Discharged to Home. Impression: Diabetes mellitus due to zb underlying condition with hyperglycemia. Condition is Stable. Forms are Medication Reconciliation Form, Thank You Letter, Antibiotic Education, Prescription Opioid Use. Follow up: Mita Luo; When: Tomorrow; Reason: Recheck today's complaints. Problem is new. Symptoms have improved. cp
--- NOTE | 2020-12-06 23:16 | ER ---
Nurse's Notes [facility] Name: Leia Beckford Age: 65 yrs Sex: Female : 1955 Arrival Date: 12/06/2020 Time: 16:11 Bed 25 Private MD: Mita Luo Diagnosis: Diabetes mellitus due to underlying condition with hyperglycemia Presentation: 12/06 16:17 Chief complaint: Patient states: BGL at 1600 was 595. Had Covid-19 on 11/04/2020, had to ca1 take steroids. Yesterday, had chest pains and SOB while walking my dog. Had mid and lower back pain yesterday, tingling on L pinky, L ring finger and L toes yesterday. This morning BGL 371 at 1400 BGL 523. HR yesterday 120. BGL in triage is HI. Pt has Diabetes NIDDM. Coronavirus screen: Client reports previous positive COVID test result. Date of collection: November 04, 2020. Ebola Screen: Patient negative for fever greater than or equal to 101.5 degrees Fahrenheit, and additional compatible Ebola Virus Disease symptoms Patient denies exposure to infectious person. Patient denies travel to an Ebola-affected area in the 21 days before illness onset. No symptoms or risks identified at this time. Initial Sepsis Screen: Does the patient meet any 2 criteria? No. Patient's initial sepsis screen is negative. Does the patient have a suspected source of infection? No. Patient's initial sepsis screen is negative. Risk Assessment: Do you want to hurt yourself or someone else? Patient reports no desire to harm self or others. Onset of symptoms was December 06, 2020. 16:17 Method Of Arrival: Ambulatory ca1 16:17 Acuity: RICK 2 ca1 Historical: - Allergies: 16:26 Hydrocodone-Acetaminophen; ca1 16:26 Latex, Natural Rubber; ca1 - Home Meds: 16:26 Glimepiride Oral [Active]; rosuvastatin oral oral [Active]; Lisinopril Oral [Active]; ca1 - PMHx: 16:26 Diabetes - IDDM; High Cholesterol; Hypertension; Diabetes - NIDDM; ca1 - PSHx: 16:26 cataract repair; Hysterectomy; ca1 - Immunization history:: Flu vaccine is not up to date. - Social history:: Smoking status: Patient denies any tobacco usage or history of. Screenin:03 Abuse screen: Denies threats or abuse. Denies injuries from another. Nutritional zb screening: No deficits noted. Tuberculosis screening: No symptoms or risk factors identified. Fall Risk None identified. Assessment: 18:00 General: Appears in no apparent distress. uncomfortable, Behavior is cooperative, zb anxious. Pain: Denies pain. Neuro: Level of Consciousness is awake, alert, obeys commands, Oriented to person, place, time, situation. Cardiovascular: Heart tones S1 S2 present Capillary refill < 3 seconds Patient's skin is warm and dry. Respiratory: Airway is patent Trachea midline Respiratory effort is even, unlabored, Respiratory pattern is regular, symmetrical. GI: No signs and/or symptoms were reported involving the gastrointestinal system. Abdomen is round non-distended. : No signs and/or symptoms were reported regarding the genitourinary system. EENT: No signs and/or symptoms were reported regarding the EENT system. Derm: Skin is intact, is healthy with good turgor, Skin is dry, Skin is normal. Musculoskeletal: Range of motion: intact in all extremities. 19:00 Reassessment: Patient appears in no apparent distress at this time. Patient and/or zb family updated on plan of care and expected duration. Pain level reassessed. Patient is alert, oriented x 3, equal unlabored respirations, skin warm/dry/pink. pt awaiting results. 20:00 Reassessment: Patient appears in no apparent distress at this time. Patient and/or zb family updated on plan of care and expected duration. Pain level reassessed. Patient is alert, oriented x 3, equal unlabored respirations, skin warm/dry/pink. 21:00 Reassessment: Patient appears in no apparent distress at this time. Patient and/or zb family updated on plan of care and expected duration. Pain level reassessed. Patient is alert, oriented x 3, equal unlabored respirations, skin warm/dry/pink. patient awaiting results. notified ECP that patient wants a CT of kidneys. 22:00 Reassessment: Patient appears in no apparent distress at this time. Patient and/or zb family updated on plan of care and expected duration. Pain level reassessed. Patient is alert, oriented x 3, equal unlabored respirations, skin warm/dry/pink. 23:00 Reassessment: Patient appears in no apparent distress at this time. Patient and/or zb family updated on plan of care and expected duration. Pain level reassessed. Patient is alert, oriented x 3, equal unlabored respirations, skin warm/dry/pink. IV fluids infusing. 12/07 00:17 Reassessment: IV fluids completed. d/c instructions given. education on diet and food. zb pt ambulatory gait even and steady. Vital Signs: 12/06 16:17 BP 126 / 53; Pulse 88; Resp 16 S; Temp 97.1(TE); Pulse Ox 98% on R/A; Weight 72.57 kg ca1 (R); Height 5 ft. 5 in. (165.10 cm) (R); Pain 0/10; 18:00 BP 137 / 59; Pulse 70; Resp 18; Pulse Ox 98% on R/A; zb 19:07 BP 123 / 71; Pulse 69; Resp 16; Pulse Ox 96% on R/A; zb 20:00 BP 115 / 69; Pulse 65; Resp 16; Pulse Ox 100% on R/A; zb 21:03 BP 128 / 90; Pulse 66; Resp 16; Pulse Ox 98% on R/A; zb 22:30 BP 136 / 65; Pulse 76; Resp 16; Pulse Ox 98% on R/A; zb 23:30 BP 137 / 62; Pulse 63; Resp 16; Pulse Ox 97% on R/A; zb 16:17 Body Mass Index 26.63 (72.57 kg, 165.10 cm) ca1 ED Course: 16:11 Patient arrived in ED. mr 16:11 Mita Luo MD is Private Physician. mr 16:25 Triage completed. ca1 16:26 Arm band placed on right wrist. ca1 17:51 Yair Lopez PA is PHCP. cp 17:51 Yair Jarquin MD is Attending Physician. cp 18:07 Koki Trujillo RN is Primary Nurse. zb 18:30 Inserted saline lock: 20 gauge in right antecubital area, using aseptic technique. zb Blood collected. 19:03 Patient has correct armband on for positive identification. Bed in low position. Call zb light in reach. Side rails up X 1. Pulse ox on. NIBP on. Door closed. Noise minimized. Warm blanket given. 19:51 Notified Nurse Practitioner and/or Physician Forestry And Wildlife Manager of a critical lab result(s), sg glucose 455. 23:15 Mita Luo MD is Referral Physician. cp 23:41 CT Stone Protocol In Process Unspecified. EDMS 12/07 00:17 No provider procedures requiring assistance completed. IV discontinued, intact, zb bleeding controlled, No redness/swelling at site. Pressure dressing applied. Administered Medications: 12/06 18:31 Drug: NS 0.9% 1000 ml Route: IV; Rate: 1 bolus; Site: right antecubital; zb 19:00 Follow up: Response: No adverse reaction; IV Status: Completed infusion; IV Intake: zb 1000ml 21:38 Drug: NovoLIN R 10 units {Co-Signature: usha (Clara Barr RN).} Route: Sub-Q; Site: zb left lower abdomen; 23:28 Follow up: Response: No adverse reaction; Marked relief of symptoms zb 21:39 Drug: NS 0.9% 1000 ml Route: IV; Rate: 1 bolus; Site: right antecubital; zb 23:29 Follow up: Response: No adverse reaction; IV Status: Completed infusion; IV Intake: zb 1000ml Point of Care Testing: Blood Glucose: 16:17 Blood Glucose: High (>450 mg/dL); ca1 Ranges: Intake: 23:29 IV: 1000ml; Total: 1000ml. zb Outcome: 23:16 Discharge ordered by . cp 12/07 00:18 Discharged to home ambulatory. zb Condition: stable Discharge instructions given to patient, Instructed on discharge instructions, follow up and referral plans. Demonstrated understanding of instructions, follow-up care. 00:18 Patient left the ED. zb Signatures: Dispatcher [employer] EDNY Prasanth Rawls RN RN sg Rivera, Yair Wagner, DEMETRI PA Linda Holland RN RN ca1 Brown, Zipporah, RN RN zb Elena Antunez RN ea Corrections: (The following items were deleted from the chart) 12/06 16:39 16:39 Blood Glucose: Blood Glucose Reading=High (>450 mg/dL). ca1 ca1
[2020-12-07 03:45] VITALS: TEMP 97.1
[2020-12-07 03:52] VITALS: BP 137/62; O2SAT 97
--- NOTE | 2020-12-07 11:02 | RAD REPORT ---
EXAM DESCRIPTION: CT - Stone Protocol - 12/07/2020 6:23 am CLINICAL HISTORY: 65 years, Female, FLANK PAIN COMPARISON: 11/17/2020. TECHNIQUE: Multiple transaxial tomograms of the abdomen and pelvis were performed from the lung base s to the symphysis pubis 3 mm slice thickness at 3 mm, without administration of IV and oral contrast . Multiplanar reformats in the sagittal and coronal plane were generated and reviewed. An individualized dose optimization technique, Automated Exposure Control, was utilized for the perfo rmed procedure. FINDINGS: The lack of IV and oral contrast limits evaluation of solid organs, subtle lesions cannot be excluded. The lung bases demonstrate questionable very minimal ill-defined areas of subpleural groundglass dens ities on CT series 201 image 160-160 atelectasis and/or less likely other process could be of co nsideration. Grossly the unopacified liver, gallbladder, pancreas, spleen and adrenal glands demonstrate to be wit hin normal limits, no significant focal lesions were identified. There is no evidence for bowel dil atation and/or free air. The kidneys demonstrate grossly unremarkable, no nephrolithiasis and/or hydronephrosis were identifie d. No focal masses were demonstrated. The ureters displays normal appearance with normal caliber, no hydroureter was seen. Grossly the unopacified stomach, small bowel and large bowel demonstrate to be within normal limits. Fecal residue and underdistention of the large bowel limits the evaluation. The appendix was not visu alized. The urinary bladder demonstrate to be within normal limits. The uterus is absent The aorta demonstrat e to be within normal limits. There is no retroperitoneal lymphadenopathy. There is no evidence f or ascites. The rest of the soft tissue demonstrate to be grossly unremarkable. IMPRESSION: No evidence of nephrolithiasis and/or hydronephrosis. Status post hysterectomy. Question very minimal ill-defined areas of subpleural groundglass densities residual findings of COVI D-19 pneumonia could be considered. Other processes such as influenza pneumonia and organizing pneumo fabiana, as can be seen with drug toxicity and connective tissue disease, can cause a similar imaging pat tern. (Reference: https://pubs.rsna.org/doi/full/10.1148/ryct.3456685073). Electronically signed by: Manish Odom MD 12/06/2020 10:15 PM CDT Due to temporary technical issues with the PACS/Fluency reporting system, reports are being signed by the in house radiologist without review as a courtesy to ensure prompt reporting. The interpreting r adiologist is fully responsible for the content of the report.
--- NOTE | 2020-12-08 04:35 | EKG ---
Test Date: 2020-12-06 Test Time: 18:29:33 Clinical Phlebotomist: GERONIMO MEASUREMENT RESULTS: Intervals: Rate: 64 KS: 166 QRSD: 70 QT: 424 QTc: 437 [place]: P: 22 KS: 166 QRS: 0 T: -1 INTERPRETIVE STATEMENTS: Normal sinus rhythm Possible Anterior infarct, age undetermined Abnormal ECG No previous ECG available for comparison Electronically Signed On 12-08-20 04:32:33 CDT by Pavel Gonzalez
== END 2020-12-07 00:18 | disposition home or self-care (01) ==
LOC: ER 16:06
DX: E11.65 Type 2 diabetes mellitus with hyperglycemia (principal); I10 Essential (primary) hypertension; E78.00 Pure hypercholesterolemia, unspecified; Z86.16 Personal history of COVID-19; Z88.5 Allergy status to narcotic agent; Z91.040 Latex allergy status; Z91.048 Other nonmedicinal substance allergy status
CPT/HCPCS: 85025; 80048; 36415; 82010; 83735; 82550; 82947 ×2; 80076; 84484; 83690; 76377; 74176; J7030 ×2; 81003; 81015; 93005; 96360; 96361; 96372; 99284

== ENCOUNTER 2023-06-14 10:48 | Emergency (ER) | payer OTHER, MEDICARE ==
--- OUTSIDE RECORDS SUMMARY | 2023-06-14 10:50 | XMS REPORT | Clinical Summary ---
:1955 Author Organization [facility] Address [address] [place], [place] [address] Care Team Providers Name Role Phone Unavailable Primary Care Provider Unavailable Allergies Not on File Medications Not on file Active Problems Not on file Social History Tobacco Use Types Packs/Day Years Used Date Smoking Tobacco: Never Assessed Sex Assigned at Date Recorded Not on file Last Filed Vital Signs Not on file Plan of Treatment Not on file Results Not on fileafter 06/14/2022 Insurance Payer Benefit Plan / Subscriber ID Effective Dates Phone Addre ss Type Group [employer]UE [employer]BS PPO POS 2019-Prese [phone] [address] PPO BLUE SHIELD OUT OF STATE [address] [place], [place] GENER[place] [id number]
--- OUTSIDE RECORDS SUMMARY | 2023-06-14 10:56 | XMS REPORT | Continuity of Care Document ---
:1955 Author Organization [facility] t Address [address] [place] [address] [place] [id number] Care Team Providers Name Role Phone Candelaria Tim MD Primary Care Physician CANDELARIA TIM Attending Clinician Unavailable Mita Luo Attending Clinician Unavailable GARRETT RUANO Attending Clinician Unavailable Garrett Ruano MD Attending Clinician Lab, Ang - Db Attending Clinician Unavailable Doctor Unassigned, [place] Attending Clinician Unavailable JUAN JOSE MONSIVAIS Attending Clinician Unavailable Nathan Law Attending Clinician Per Attending Clinician Unavailable Bryant Lyon MD Attending Clinician ASIF Attending Clinician Unavailable BRYANT LYON Attending Clinician Unavailable BRYANT LYON Attending Clinician Unavailable MAGALI CROSS Attending Clinician Unavailable Nathan Law Admitting Clinician Per Admitting Clinician Unavailable ASIF Admitting Clinician Unavailable Payers Payer Name Policy Type Policy Number Effective Date Expiration Date S jaye MEDICARE PART A [id number] 2018 \\T\\ B 00:00:00 [place] [id number] 2022 HEALTHCARE 00:00:00 MEDICARE SUPPLEMENT WELL[place]/AARP [id number] 2021 MCARE ADV CHOICE 00:00:00 PPO MEDICARE B-[place]: [id number] 2018 NOVITAS 00:00:00 SOLUTIONS AAR HEALTHCARE [id number] 2022 OPTIONS 00:00:00 (MEDICARE SUPPLEMENT) MEDICARE A-[place]: [id number] 2018 NOVITAS 00:00:00 SOLUTIONS - [facility] [id number] HEALTHCARE (MEDICARE REPLACEMENT/ADVA NTAGE - PPO) AAR Medicare 53 [id number] Common Advantage [facility] UNITED C1 [id number] 2020 Common HEALTHCARE DUAL 00:00:00 [facility] Problems Condition Condition Condition Status Onset Resolution Last Treating Co mments Source Name Details Category Date Date Treatment Clinician Date Hypertensi Hypertensi Disease Active U nivers on on 04-16 ity of 00:00: [place] 00 Medical Branch Mixed Mixed Disease Active Univers hyperlipid hyperlipid 04-16 it y of emia emia 00:00: [place] 00 Medical Branch Primary Primary Disease Active Univers osteoarthr osteoarthr 04-16 it y of itis of itis of 00:00: [place] left hand left hand 00 Medi rivera Branch Rotator Rotator Disease Active Univers cuff cuff 04-16 ity of syndrome syndrome 00:00: [place] of right of right 00 Medica l shoulder shoulder Branch Uncontroll Uncontroll Disease Active U nivers ed type 2 ed type 2 04-16 ity of diabetes diabetes 00:00: [place] mellitus mellitus 00 Medica l with with Branch hyperglyce hyperglyce curtis curtis Diabetes Diabetes Problem Active [place] mellitus Mellitus 04-16 da 00:00: Medical 00 Group Hyperlipid Hyperlipid Problem Active M atagor emia emia 04-16 da 00:00: Medical 00 Group Essential Essential Problem Active [place] hypertensi Hypertensi 04-16 da on on 00:00: Medical 00 Group Benign Benign Disease Active Overview: Univer s essential essential 10-24 Formattin i ty of hypertensi hypertensi 00:00: g of this [place] on on 00 note Medical might be Branch different from the original. Formattin g of this note might be different from the original. On lisinopri l HCTZ Well controlle d Multinodul Multinodul Disease Active Overview : Univers ar goiter ar goiter 10-24 Formattin i ty of 00:00: g of this [place] 00 note Medical might be Branch different from the original. Formattin g of this note might be different from the original. Diagnosed long time ago when she had lympahden opathy of neck TFT normal Refer to endocrine for evaluatio n of thyroid nodules Type 2 Type 2 Disease Active Overview: Univer s diabetes diabetes 10-24 Formattin ity of mellitus mellitus 00:00: g of this [place] as without without 00 note Medical complicati complicati might be Branch on on different from the original. Formattin g of this note might be different from the original. On glipizide taking 20 mg bid Concerned for hypoglyce curtis Does not want to take metformin as she heard" bad things" about it Unable to use sglt 2 inhibitor s as HO recurrent UTIs Tradjenta was expensive will try optum rx Will also try trulicity ( had CT neck done at [facility] and only had benign thyroid nodules )Advised to stop glipizide and start actos A1C -Oct 2022 -9.4June 2022 -8.8 Switch from tradjenta to trulicity -0.75mg weekly and increase to 1.5 mg weekly in 2 weeks Unable to afford both tradjenta + trulicuty Continue actos History of History Problem Active 2023-03-13 Memoria SARS-CoV-2 of 09-24 07:01:40 l SARS-CoV-2 00:00: Owen n Active 00 09/24/2019 Problem 03/13/2023 hospitaliz ed x1 [facility] [id number] Other Problem Common chronic Spirit pain - [facility] Kidney Kidney Problem Common stone stones Spirit - [facility] [id number] History of Problem 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 [facility] [id number] shelter Problem Com mon (current) Spirit use of - [facility] insulin [facility] [id number] Encounter Problem Com mon for Spirit examinatio - [facility]I n of eyes [facility] and vision [facility] without Medical abnormal Center findings [id number] Paresthesi Problem Com mon a of skin Spirit - [facility] [id number] Type 2 Problem Common diabetes Spirit mellitus - [facility] with [facility] [id number] Anesthesia Problem Co mmon of skin Spirit - [facility] [id number] Abnormal Problem Comm on ultrasound Spirit of neck - [facility] No known No known Disease Unive rs active active ity of problems problems [facility] Pain of Pain of Problem Active 2023-03-13 Me moria right right 07:01:40 l shoulder shoulder Owen n region region Active Problem 03/13/2023 [facility] Hyperchole Hyperchol Problem Active 2023-03-13 Memoria sterolemia esterolemi 07:01:40 l (disorder) a Owen n (disorder) Active Problem 03/13/2023 [facility] History of Past Illness Condition Condition Condition Status Onset Resolution Last Treating Co mments Source Name Details Category Date Date Treatment Clinician Date Complete Complete Problem 2023-03-13 2023-03-13 Memoria rotator rotator - 07:01:40 07:01:40 l cuff tear cuff tear 17:00: Herm fidel or rupture or rupture 00 of right of right shoulder, shoulder, not not specified specified as as traumatic traumatic 03/12/2023 03/13/2023 [facility] Allergies, Adverse Reactions, Alerts Allergy Allergy Status Severity Reaction(s) Onset Inactive Treating Comm ents Source Name Type Date Date Clinician NO KNOWN Drug Active Univers ALLERGIE Class ity of S [facility] Latex Latex Active Memoria l [place] HYDROcod HYDROcod Active Itching Memor ia one one (finding) l [place] acetamin acetamin Active itching Commo n ophen / ophen / Spirit hydrocod hydrocod - CHI one one [facility] [id number] Drug Active itching Common allergy [facility] Latex Allergy Active Mild to Rash [place] to moderate da substanc Medical e Group Social History Social Habit Start Date Stop Date Quantity Comments Source History of Tobacco Common [facility] - [facility] Use [facility] Sexual orientation [facility] [place] [facility] Gender identity Universit y [facility] Exposure to 2022-03-21 2022-03-[address] [facility] SARS-CoV-2 (event) 00:00:00 09:24:00 Medica l Branch Sex Ass[birth year] [facility] 00:00:00 00:00:00 MD Jarquin [facility] Center Smoking Status Start Date Stop Date Source Tobacco smoking consumption [facility] Medical unknown Branch Social History [facility] Medications Ordered Filled Start Stop Current Ordering Indication Dosage Frequency Signature Comments Components Source Medication Medication Date Date Medication? Clinician (SIG) Name Name emory Yes 1{each} inject 1 Unive rs glucose 8-29 Each under ity of sensor 15:52: the skin [place] (FREESTYLE 47 every 14 Medic al DENISHA 2 (fourteen) Branch SENSOR) Kit days. flash Yes 1{each} inject 1 Unive rs glucose 8-29 Each under ity of scanning 15:52: the skin [place] reader 47 once now. Medical (FREESTYLE Branch DENISHA 2 READER) [facility] flash Yes 1{each} inject 1 Unive rs glucose 8-29 Each under ity of sensor 15:52: the skin [place] (FREESTYLE 47 every 14 Medic al DENISHA 2 (fourteen) Branch SENSOR) Kit days. flash Yes 1{each} inject 1 Unive rs glucose 8-29 Each under ity of scanning 15:52: the skin [place] reader 47 once now. Medical (FREESTYLE Branch DENISHA 2 READER) [facility] dulaglutide Yes [id number] .75mg inject 1 Univers (TRULICITY) 8-28 Pen under ity of 0.75 mg/0.5 00:00: [place] mL PnIj 00 weekly. Medical Branch dulaglutide Yes [id number] .75mg inject 1 Univers (TRULICITY) 8-28 Pen under ity of 0.75 mg/0.5 00:00: the skin [place] mL PnIj 00 weekly. Medical Branch dulaglutide Yes [id number] .75mg inject 1 Univers (TRULICITY) 8-28 Pen under ity of 0.75 mg/0.5 00:00: the skin [place] mL PnIj 00 weekly. Medical Branch dulaglutide Yes [id number] .75mg inject 1 Univers (TRULICITY) 8-28 Pen under ity of 0.75 mg/0.5 00:00: the skin [place] mL PnIj 00 weekly. Medical Branch dulaglutide Yes [id number] .75mg inject 1 Univers (TRULICITY) 8-28 Pen under ity of 0.75 mg/0.5 00:00: the skin [place] mL PnIj 00 weekly. Medical Branch dulaglutide Yes [id number] .75mg inject 1 Univers (TRULICITY) 8-28 Pen under ity of 0.75 mg/0.5 00:00: the skin [place] mL PnIj 00 weekly. Medical Branch tirzepatide Yes [id number] 2.5mg inject 2.5 Univers (MOUNJARO) 8-23 mg under ity o f 2.5 mg/0.5 00:00: the skin [place] mL PnIj 00 weekly. Medical Branch tirzepatide Yes [id number] 5mg inject 5 Univers (MOUNJARO) 8-23 mg under ity o f 5 mg/0.5 mL 00:00: the skin [place] PnIj 00 weekly. Medical Branch tirzepatide Yes [id number] 2.5mg inject 2.5 Univers (MOUNJARO) 8-23 mg under ity o f 2.5 mg/0.5 00:00: the skin [place] mL PnIj 00 weekly. Medical Branch tirzepatide Yes [id number] 5mg inject 5 Univers (MOUNJARO) 8-23 mg under ity o f 5 mg/0.5 mL 00:00: the skin [place] PnIj 00 weekly. Medical Branch tirzepatide Yes [id number] 2.5mg inject 2.5 Univers (MOUNJARO) 8-23 mg under ity o f 2.5 mg/0.5 00:00: the skin [place] mL PnIj 00 weekly. Medical Branch tirzepatide Yes [id number] 5mg inject 5 Univers (MOUNJARO) 8-23 mg under ity o f 5 mg/0.5 mL 00:00: the skin [place] PnIj 00 weekly. Medical Branch tirzepatide 0 3- No [id number] 2.5mg inject 2.5 Univers (MOUNJARO) 8-23 08-28 mg under ity of 2.5 mg/0.5 00:00: 00:00 the skin [place] mL PnIj 00 :00 weekly. Medical Branch tirzepatide 3- No [id number] 5mg inject 5 Univers (MOUNJARO) 8-23 08-28 mg under ity of 5 mg/0.5 mL 00:00: 00:00 [place] skin [place] PnIj 00 :00 weekly. Medical Branch flash 2023-0 Yes 1{each} inject 1 Unive rs glucose 7-24 Each under ity of sensor 13:43: the skin [place] (FREESTYLE 05 every 14 Medic al DENISHA 2 (fourteen) Branch SENSOR) Kit days. flash 2022-0 Yes 1{each} inject 1 Unive rs glucose 7-24 Each under ity of scanning 13:43: the skin [place] reader 05 once now. Medical (FREESTYLE Branch DENISHA 2 READER) [facility] flash 2022-0 Yes 1{each} inject 1 Unive rs glucose 7-24 Each under ity of sensor 13:43: the skin [place] (FREESTYLE 05 every 14 Medic al DENISHA 2 (fourteen) Branch SENSOR) Kit days. flash 2022-0 Yes 1{each} inject 1 Unive rs glucose 7-24 Each under ity of scanning 13:43: the skin [place] reader 05 once now. Medical (FREESTYLE Branch DENISHA 2 READER) [facility] flash 2023-0 Yes 1{each} inject 1 Unive rs glucose 7-24 Each under ity of sensor 13:43: the skin [place] (FREESTYLE 05 every 14 Medic al DENISHA 2 (fourteen) Branch SENSOR) Kit days. flash 2023-0 Yes 1{each} inject 1 Unive rs glucose 7-24 Each under ity of scanning 13:43: the skin [place] reader 05 once now. Medical (FREESTYLE Branch DENISHA 2 READER) [facility] flash 2023-0 Yes 1{each} inject 1 Unive rs glucose 7-24 Each under ity of sensor 13:43: the skin [place] (FREESTYLE 05 every 14 Medic al DENISHA 2 (fourteen) Branch SENSOR) Kit days. flash 2023-0 Yes 1{each} inject 1 Unive rs glucose 7-24 Each under ity of scanning 13:43: the skin [place] reader 05 once now. Medical (FREESTYLE Branch DENISHA 2 READER) [facility] flash 2023-0 Yes 1{each} inject 1 Unive rs glucose 7-24 Each under ity of sensor 13:43: the skin [place] (FREESTYLE 05 every 14 Medic al DENISHA 2 (fourteen) Branch SENSOR) Kit days. flash 2023-0 Yes 1{each} inject 1 Unive rs glucose 7-24 Each under ity of scanning 13:43: the skin [place] reader 05 once now. Medical (FREESTYLE Branch DENISHA 2 READER) [facility] flash 2023-0 Yes 1{each} inject 1 Unive rs glucose 7-24 Each under ity of sensor 13:43: the skin [place] (FREESTYLE 05 every 14 Medic al DENISHA 2 (fourteen) Branch SENSOR) Kit days. flash 2023-0 Yes 1{each} inject 1 Unive rs glucose 7-24 Each under ity of scanning 13:43: the skin [place] reader 05 once now. Medical (FREESTYLE Branch DENISHA 2 READER) [facility] flash 2023-0 Yes 1{each} inject 1 Unive rs glucose 7-24 Each under ity of sensor 13:43: the skin [place] (FREESTYLE 05 every 14 Medic al DENISHA 2 (fourteen) Branch SENSOR) Kit days. flash 2023-0 Yes 1{each} inject 1 Unive rs glucose 7-24 Each under ity of scanning 13:43: the skin [place] reader 05 once now. Medical (FREESTYLE Branch DENISHA 2 READER) [facility] flash 2023-0 Yes 1{each} inject 1 Unive rs glucose 7-24 Each under ity of sensor 13:43: the skin [place] (FREESTYLE 05 every 14 Medic al DENISHA 2 (fourteen) Branch SENSOR) Kit days. flash 2023-0 Yes 1{each} inject 1 Unive rs glucose 7-24 Each under ity of scanning 13:43: the skin [place] reader 05 once now. Medical (FREESTYLE Branch DENISHA 2 READER) [facility] flash 2023-0 Yes 1{each} inject 1 Unive rs glucose 7-24 Each under ity of sensor 13:43: the skin [place] (FREESTYLE 05 every 14 Medic al DENISHA 2 (fourteen) Branch SENSOR) Kit days. flash 2023-0 Yes 1{each} inject 1 Unive rs glucose 7-24 Each under ity of scanning 13:43: the skin [place] reader 05 once now. Medical (FREESTYLE Branch DENISHA 2 READER) [facility] flash 2023-0 Yes 1{each} inject 1 Unive rs glucose 7-24 Each under ity of sensor 13:43: the skin [place] (FREESTYLE 05 every 14 Medic al DENISHA 2 (fourteen) Branch SENSOR) Kit days. flash 2023-0 Yes 1{each} inject 1 Unive rs glucose 7-24 Each under ity of scanning 13:43: the skin [place] reader 05 once now. Medical (FREESTYLE Branch DENISHA 2 READER) [facility] flash 2023-0 Yes 1{each} inject 1 Unive rs glucose 7-24 Each under ity of sensor 13:43: the skin [place] (FREESTYLE 05 every 14 Medic al DENISHA 2 (fourteen) Branch SENSOR) Kit days. flash 2023-0 Yes 1{each} inject 1 Unive rs glucose 7-24 Each under ity of scanning 13:43: the skin [place] reader 05 once now. Medical (FREESTYLE Branch DENISHA 2 READER) [facility] flash 2023-0 Yes 1{each} inject 1 Unive rs glucose 7-24 Each under ity of sensor 13:43: the skin [place] (FREESTYLE 05 every 14 Medic al DENISHA 2 (fourteen) Branch SENSOR) Kit days. flash 2023-0 Yes 1{each} inject 1 Unive rs glucose 7-24 Each under ity of scanning 13:43: the skin [place] reader 05 once now. Medical (FREESTYLE Branch DENISHA 2 READER) [facility] flash 2023-0 Yes 1{each} inject 1 Unive rs glucose 7-24 Each under ity of sensor 13:43: the skin [place] (FREESTYLE 05 every 14 Medic al DENISHA 2 (fourteen) Branch SENSOR) Kit days. flash 2023-0 Yes 1{each} inject 1 Unive rs glucose 7-24 Each under ity of scanning 13:43: the skin [place] reader 05 once now. Medical (FREESTYLE Branch DENISHA 2 READER) [facility] flash 2023-0 Yes 1{each} inject 1 Unive rs glucose 7-24 Each under ity of sensor 13:43: the skin [place] (FREESTYLE 05 every 14 Medic al DENISHA 2 (fourteen) Branch SENSOR) Kit days. flash 2023-0 Yes 1{each} inject 1 Unive rs glucose 7-24 Each under ity of scanning 13:43: the skin [place] reader 05 once now. Medical (FREESTYLE Branch DENISHA 2 READER) [facility] flash 2023-0 Yes 1{each} inject 1 Unive rs glucose 7-24 Each under ity of sensor 13:43: the skin [place] (FREESTYLE 05 every 14 Medic al DENISHA 2 (fourteen) Branch SENSOR) Kit days. flash 2023-0 Yes 1{each} inject 1 Unive rs glucose 7-24 Each under ity of scanning 13:43: the skin [place] reader 05 once now. Medical (FREESTYLE Branch DENISHA 2 READER) [facility] flash 2023-0 Yes 1{each} inject 1 Unive rs glucose 7-24 Each under ity of sensor 13:43: the skin [place] (FREESTYLE 05 every 14 Medic al DENISHA 2 (fourteen) Branch SENSOR) Kit days. flash 2023-0 Yes 1{each} inject 1 Unive rs glucose 7-24 Each under ity of scanning 13:43: the skin [place] reader 05 once now. Medical (FREESTYLE Branch DENISHA 2 READER) [facility] TRULICITY 2023-0 Yes .75mg inject 1 Uni vers 0.75 mg/0.5 7-11 Pen under ity of mL PnIj 00:00: the skin [place] 00 weekly. Medical Branch TRULICITY 2023-0 Yes .75mg inject 1 Uni vers 0.75 mg/0.5 7-11 Pen under ity of mL PnIj 00:00: the skin [place] 00 weekly. Medical Branch TRULICITY 2023-0 Yes .75mg inject 1 Uni vers 0.75 mg/0.5 7-11 Pen under ity of mL PnIj 00:00: the skin [place] 00 weekly. Medical Branch TRULICITY 2023-0 Yes .75mg inject 1 Uni vers 0.75 mg/0.5 7-11 Pen under ity of mL PnIj 00:00: the skin [place] 00 weekly. Medical Branch TRULICITY 2023-0 Yes .75mg inject 1 Uni vers 0.75 mg/0.5 7-11 Pen under ity of mL PnIj 00:00: the skin [place] 00 weekly. Medical Branch TRULICITY 2023-0 Yes .75mg inject 1 Uni vers 0.75 mg/0.5 7-11 Pen under ity of mL PnIj 00:00: the skin [place] 00 weekly. Medical Branch TRULICITY 2023-0 Yes .75mg inject 1 Uni vers 0.75 mg/0.5 7-11 Pen under ity of mL PnIj 00:00: the skin [place] 00 weekly. Medical Branch TRULICITY 2023-0 Yes .75mg inject 1 Uni vers 0.75 mg/0.5 7-11 Pen under ity of mL PnIj 00:00: the skin [place] 00 weekly. Medical Branch TRULICITY 2023-0 Yes .75mg inject 1 Uni vers 0.75 mg/0.5 7-11 Pen under ity of mL PnIj 00:00: the skin [place] 00 weekly. Medical Branch TRULICITY 2023-0 2023- No .75mg inject 1 Un arcenio 0.75 mg/0.5 7-11 08-23 Pen under it y of mL PnIj 00:00: 00:00 the skin [place] 00 :00 weekly. Medical Branch Zofran 3-0 No 4 mg = 2 Memoria 6-19 mL, l 19:49: Injection, [place] 00 IV Push, q30min PRN for nausea/vom iting, order duration: 2 dose(s)/ti me(s), first dose 03/12/23 14:49:00 CDT, stop date Limited # of times Zofran 3-0 No 4 mg = 2 Memoria 6-19 mL, l 19:49: Injection, [place] 00 IV Push, q30min PRN for nausea/vom iting, order duration: 2 dose(s)/ti me(s), first dose 03/12/23 14:49:00 CDT, stop date Limited # of times Zofran 3-0 No 4 mg = 2 Memoria 6-19 mL, l 19:49: Injection, [place] 00 IV Push, q30min PRN for nausea/vom iting, order duration: 2 dose(s)/ti me(s), first dose 03/12/23 14:49:00 CDT, stop date Limited # of times Misc 0 No 500 mL, Memoria Medication 6-19 Soln-IV, l 19:22: IV, Once, [place] 00 first dose 03/12/23 14:22:00 CDT, stop date 03/12/23 14:22:00 CDT [facility] 0 No 500 mL, Memoria Medication 6-19 Soln-IV, l 19:22: IV, Once, [place] 00 first dose 03/12/23 14:22:00 CDT, stop date 03/12/23 14:22:00 CDT [facility] 0 No 500 mL, Memoria Medication 6-19 Soln-IV, l 19:22: IV, Once, [place] 00 first dose 03/12/23 14:22:00 CDT, stop date 03/12/23 14:22:00 CDT fentaNYL 2022-0 No 25 mcg = Memor ia 6-19 0.5 mL, l 19:04: Injection, [place] 00 IV, Once, first dose 03/12/23 14:04:00 CDT, stop date 03/12/23 14:04:00 CDT fentaNYL 2022-0 No 25 mcg = Memor ia 6-19 0.5 mL, l 19:04: Injection, [place] 00 IV, Once, first dose 03/12/23 14:04:00 CDT, stop date 03/12/23 14:04:00 CDT fentaNYL 3-0 No 25 mcg = Memor ia 6-19 0.5 mL, l 19:04: Injection, [place] 00 IV, Once, first dose 03/12/23 14:04:00 CDT, stop date 03/12/23 14:04:00 CDT fentaNYL 3-0 No 25 mcg = Memor ia 6-19 0.5 mL, l 18:53: Injection, [place] 00 IV, Once, first dose 03/12/23 13:53:00 CDT, stop date 03/12/23 13:53:00 CDT fentaNYL 3-0 No 25 mcg = Memor ia 6-19 0.5 mL, l 18:53: Injection, [place] 00 IV, Once, first dose 03/12/23 13:53:00 CDT, stop date 03/12/23 13:53:00 CDT fentaNYL 3-0 No 25 mcg = Memor ia 6-19 0.5 mL, l 18:53: Injection, [place] 00 IV, Once, first dose 03/12/23 13:53:00 CDT, stop date 03/12/23 13:53:00 CDT fentaNYL 3-0 No 25 mcg = Memor ia 6-19 0.5 mL, l 18:47: Injection, [place] 00 IV, Once, first dose 03/12/23 13:47:00 CDT, stop date 03/12/23 13:47:00 CDT fentaNYL 2023-0 No 25 mcg = Memor ia 6-19 0.5 mL, l 18:47: Injection, [place] 00 IV, Once, first dose 03/12/23 13:47:00 CDT, stop date 03/12/23 13:47:00 CDT fentaNYL 3-0 No 25 mcg = Memor ia 6-19 0.5 mL, l 18:47: Injection, [place] 00 IV, Once, first dose 03/12/23 13:47:00 CDT, stop date 03/12/23 13:47:00 CDT ondansetron 3-0 No 4 mg = 2 Me moria 6-19 mL, l 18:43: Injection, [place] 00 IV, Once, first dose 03/12/23 13:43:00 CDT, stop date 03/12/23 13:43:00 CDT ondansetron 3-0 No 4 mg = 2 Me moria 6-19 mL, l 18:43: Injection, [place] 00 IV, Once, first dose 03/12/23 13:43:00 CDT, stop date 03/12/23 13:43:00 CDT ondansetron 3-0 No 4 mg = 2 Me moria 6-19 mL, l 18:43: Injection, [place] 00 IV, Once, first dose 03/12/23 13:43:00 CDT, stop date 03/12/23 13:43:00 CDT fentaNYL 3-0 No 50 mcg = 1 Mem oria 6-19 mL, l 18:36: Injection, [place] 00 IV, Once, first dose 03/12/23 13:36:00 CDT, stop date 03/12/23 13:36:00 CDT fentaNYL 2022-0 No 50 mcg = 1 Mem oria 6-19 mL, l 18:36: Injection, [place] 00 IV, Once, first dose 03/12/23 13:36:00 CDT, stop date 03/12/23 13:36:00 CDT fentaNYL 2022-0 No 50 mcg = 1 Mem oria 6-19 mL, l 18:36: Injection, [place] 00 IV, Once, first dose 03/12/23 13:36:00 CDT, stop date 03/12/23 13:36:00 CDT LR 1,000 mL 2022-0 No 1,000 mL, M emoria 6-19 IV, 75 l 18:05: mL/hr, [place] 00 start date 03/12/23 13:05:00 CDT, 1.83, m2 Dilaudid No 0.5 mg = Memor ia 6-19 0.5 mL, l 18:05: Injection, [place] 00 IV Push, q10min PRN for pain severe (7-10), first dose 03/12/23 13:05:00 CDT Demerol HCl 0 No 12.5 mg = M emoria 6-19 0.5 mL, l 18:05: Injection, [place] 00 IV Push, Once PRN for shivers, first dose 03/12/23 13:05:00 CDT ondansetron 0 No 4 mg = 2 Me moria 6-19 mL, l 18:05: Injection, [place] 00 IV Push, q15min PRN for nausea, order duration: 1 dose(s)/ti me(s), first dose 03/12/23 13:05:00 CDT, stop date Limited # of times diphenhydrA 2022-0 No 25 mg = Mem oria MINE 6-19 0.5 mL, l 18:05: Injection, [place] 00 IV Push, Once PRN for itching, first dose 03/12/23 13:05:00 CDT acetaminoph 2022-0 No Notes: Max Memoria en -19 4gm l 18:05: acetaminop hen in 24 hours Misc 2022-0 No 1,000 mL, Memoria Medication 6-19 Soln-IV, l 18:05: IV, Once, first dose 03/12/23 13:05:00 CDT, stop date 03/12/23 13:05:00 CDT LR 1,000 mL No 1,000 mL, M emoria 6-19 IV, 75 l 18:05: mL/hr, start date 03/12/23 13:05:00 CDT, 1.83, m2 Dilaudid No 0.5 mg = Memor ia 6-19 0.5 mL, l 18:05: Injection, IV Push, q10min PRN for pain severe (7-10), first dose 03/12/23 13:05:00 CDT Demerol HCl No 12.5 mg = M emoria 6-19 0.5 mL, l 18:05: Injection, IV Push, Once PRN for shivers, first dose 03/12/23 13:05:00 CDT ondansetron No 4 mg = 2 Me moria 6-19 mL, l 18:05: Injection, IV Push, q15min PRN for nausea, order duration: 1 dose(s)/ti me(s), first dose 03/12/23 13:05:00 CDT, stop date Limited # of times diphenhydrA No 25 mg = Mem oria MINE 6-19 0.5 mL, l 18:05: Injection, IV Push, Once PRN for itching, first dose 03/12/23 13:05:00 CDT acetaminoph No Notes: Max Memoria en - 4gm l 18:05: acetaminop hen in 24 hours Misc No 1,000 mL, Memoria Medication -19 Soln-IV, l 18:05: IV, Once, first dose 03/12/23 13:05:00 CDT, stop date 03/12/23 13:05:00 CDT LR 1,000 mL No 1,000 mL, M emoria 6-19 IV, 75 l 18:05: mL/hr, [place] 00 start date 03/12/23 13:05:00 CDT, 1.83, m2 Dilaudid No 0.5 mg = Memor ia 6-19 0.5 mL, l 18:05: Injection, [place] 00 IV Push, q10min PRN for pain severe (7-10), first dose 03/12/23 13:05:00 CDT Demerol HCl No 12.5 mg = M emoria 6-19 0.5 mL, l 18:05: Injection, [place] 00 IV Push, Once PRN for shivers, first dose 03/12/23 13:05:00 CDT ondansetron No 4 mg = 2 Me moria 6-19 mL, l 18:05: Injection, [place] 00 IV Push, q15min PRN for nausea, order duration: 1 dose(s)/ti me(s), first dose 03/12/23 13:05:00 CDT, stop date Limited # of times diphenhydrA No 25 mg = Mem oria MINE 6-19 0.5 mL, l 18:05: Injection, [place] 00 IV Push, Once PRN for itching, first dose 03/12/23 13:05:00 CDT acetaminoph No Notes: Max Memoria en 6-19 4gm l 18:05: acetaminop hen in 24 hours Misc No 1,000 mL, Memoria Medication 6-19 Soln-IV, l 18:05: IV, Once, first dose 03/12/23 13:05:00 CDT, stop date 03/12/23 13:05:00 CDT fentaNYL 2022-0 No 25 mcg = Memor ia 6-19 0.5 mL, l 17:45: Injection, [place] 00 IV, Once, first dose 03/12/23 12:45:00 CDT, stop date 03/12/23 12:45:00 CDT fentaNYL 2022-0 No 25 mcg = [facility] ia 6-19 0.5 mL, l 17:45: Injection, [place] 00 IV, Once, first dose 03/12/23 12:45:00 CDT, stop date 03/12/23 12:45:00 CDT fentaNYL 2023-0 No 25 mcg = [facility] ia 6-19 0.5 mL, l 17:45: Injection, [place] 00 IV, Once, first dose 03/12/23 12:45:00 CDT, stop date 03/12/23 12:45:00 CDT Saline Lock 3-0 No 10 mL, En good Flush 6-19 Soln, IV l 17:35: Push, As Indicated PRN for flush, first dose 03/12/23 12:35:00 CDT Saline Lock 3-0 No 10 mL, En good Flush 6-19 Soln, IV l 17:35: Push, As Indicated PRN for flush, first dose 03/12/23 12:35:00 CDT Saline Lock 3-0 No 10 mL, En good Flush 6-19 Soln, IV l 17:35: Push, As Indicated PRN for flush, first dose 03/12/23 12:35:00 CDT glycopyrrol 3-0 No 0.2 mg = 1 Memoria ate 6-19 mL, l 17:20: Injection, [place] 00 IV, Once, first dose 03/12/23 12:20:00 CDT, stop date 03/12/23 12:20:00 CDT dexamethaso 3-0 No 8 mg = 2 Me moria ne 6-19 mL, l 17:20: Injection, [place] 00 IV, Once, first dose 03/12/23 12:20:00 CDT, stop date 03/12/23 12:20:00 CDT glycopyrrol 3-0 No 0.2 mg = 1 Memoria ate 6-19 mL, l 17:20: Injection, [place] 00 IV, Once, first dose 03/12/23 12:20:00 CDT, stop date 03/12/23 12:20:00 CDT dexamethaso 2023-0 No 8 mg = 2 Me moria ne 6-19 mL, l 17:20: Injection, [place] 00 IV, Once, first dose 03/12/23 12:20:00 CDT, stop date 03/12/23 12:20:00 CDT glycopyrrol 3-0 No 0.2 mg = 1 Memoria ate 6-19 mL, l 17:20: Injection, [place] 00 IV, Once, first dose 03/12/23 12:20:00 CDT, stop date 03/12/23 12:20:00 CDT dexamethaso 3-0 No 8 mg = 2 Me moria ne 6-19 mL, l 17:20: Injection, [place] 00 IV, Once, first dose 03/12/23 12:20:00 CDT, stop date 03/12/23 12:20:00 CDT ceFAZolin 3-0 No 2 gm, Memoria 6-19 Powder-Inj l 17:18: , IV, Once, first dose 03/12/23 12:18:00 CDT, stop date 03/12/23 12:18:00 CDT ceFAZolin 3-0 No 2 gm, [facility] 6-19 Powder-Inj l 17:18: , IV, 00 Once, first dose 03/12/23 12:18:00 CDT, stop date 03/12/23 12:18:00 CDT ceFAZolin 3-0 No 2 gm, [facility] 6-19 Powder-Inj l 17:18: , IV, Once, first dose 03/12/23 12:18:00 CDT, stop date 03/12/23 12:18:00 CDT lidocaine 3-0 No 100 mg = 5 Me moria 6-19 mL, l 16:57: Injection, [place] 00 IV, Once, first dose 03/12/23 11:57:00 CDT, stop date 03/12/23 11:57:00 CDT succinylcho 3-0 No 140 mg = 7 Memoria line 6-19 mL, l 16:57: Injection, [place] 00 IV, Once, first dose 03/12/23 11:57:00 CDT, stop date 03/12/23 11:57:00 CDT fentaNYL 3-0 No 50 mcg = 1 Mem oria 6-19 mL, l 16:57: Injection, [place] 00 IV, Once, first dose 03/12/23 11:57:00 CDT, stop date 03/12/23 11:57:00 CDT propofol 3-0 No 150 mg = Mem[facility] ia 6-19 15 mL, l 16:57: Emulsion, [place] 00 IV, Once, first dose 03/12/23 11:57:00 CDT, stop date 03/12/23 11:57:00 CDT lidocaine 2023-0 No 100 mg = 5 Me moria 6-19 mL, l 16:57: Injection, [place] 00 IV, Once, first dose 03/12/23 11:57:00 CDT, stop date 03/12/23 11:57:00 CDT succinylcho 2023-0 No 140 mg = 7 Memoria line 6-19 mL, l 16:57: Injection, [place] 00 IV, Once, first dose 03/12/23 11:57:00 CDT, stop date 03/12/23 11:57:00 CDT fentaNYL 3-0 No 50 mcg = 1 Mem oria 6-19 mL, l 16:57: Injection, [place] 00 IV, Once, first dose 03/12/23 11:57:00 CDT, stop date 03/12/23 11:57:00 CDT propofol 3-0 No 150 mg = Mem[facility] 6-19 15 mL, l 16:57: Emulsion, [place] 00 IV, Once, first dose 03/12/23 11:57:00 CDT, stop date 03/12/23 11:57:00 CDT lidocaine 3-0 No 100 mg = 5 Me moria 6-19 mL, l 16:57: Injection, [place] 00 IV, Once, first dose 03/12/23 11:57:00 CDT, stop date 03/12/23 11:57:00 CDT succinylcho 3-0 No 140 mg = 7 Memoria line 6-19 mL, l 16:57: Injection, [place] 00 IV, Once, first dose 03/12/23 11:57:00 CDT, stop date 03/12/23 11:57:00 CDT fentaNYL 3-0 No 50 mcg = 1 Mem oria 6-19 mL, l 16:57: Injection, [place] 00 IV, Once, first dose 03/12/23 11:57:00 CDT, stop date 03/12/23 11:57:00 CDT propofol 2023-0 No 150 mg = [facility] 6-19 15 mL, l 16:57: Emulsion, [place] 00 IV, Once, first dose 03/12/23 11:57:00 CDT, stop date 03/12/23 11:57:00 CDT bupivacaine 2023-0 No 133 mg = Me moria liposome 6-19 10 mL, l 16:27: Injection, [place] 00 IV, Once, first dose 03/12/23 11:27:00 CDT, stop date 03/12/23 11:27:00 CDT bupivacaine 2023-0 No 133 mg = Me moria liposome 6-19 10 mL, l 16:27: Injection, [place] 00 IV, Once, first dose 03/12/23 11:27:00 CDT, stop date 03/12/23 11:27:00 CDT bupivacaine 2023-0 No 133 mg = Me moria liposome 6-19 10 mL, l 16:27: Injection, [place] 00 IV, Once, first dose 03/12/23 11:27:00 CDT, stop date 03/12/23 11:27:00 CDT ceFAZolin 2023-0 No 2 gm, Memoria 6-19 Powder-Inj l 14:00: , IV [place] 00 Piggyback, Once, infuse over 30 minutes, first dose 03/12/23 9:00:00 CDT, stop date 03/12/23 9:00:00 CDT, patient weight 50-120 kg, Prophylaxi s ceFAZolin 2023-0 No 2 gm, Mem[facility] 6-19 Powder-Inj l 14:00: , IV [place] 00 Piggyback, Once, infuse over 30 minutes, first dose 03/12/23 9:00:00 CDT, stop date 03/12/23 9:00:00 CDT, patient weight 50-120 kg, Prophylaxi s ceFAZolin 2023-0 No 2 gm, Mem[facility] 6-19 Powder-Inj l 14:00: , IV [place] 00 Piggyback, Once, infuse over 30 minutes, first dose 03/12/23 9:00:00 CDT, stop date 03/12/23 9:00:00 CDT, patient weight 50-120 kg, Prophylaxi s LR 1,000 mL 3-0 No 1,000 mL, M emoria 6-19 IV, 30 l 13:46: mL/hr, [place] 00 start date 03/12/23 8:46:00 CDT, 1.83, m2 LR 1,000 mL 3-0 No 1,000 mL, M emoria 6-19 IV, 30 l 13:46: mL/hr, start date 03/12/23 8:46:00 CDT, 1.83, m2 LR 1,000 mL 2023-0 No 1,000 mL, M emoria 6-19 IV, 30 l 13:46: mL/hr, start date 03/12/23 8:46:00 CDT, 1.83, m2 Lidocaine 3-0 No 0.2 mL, Mem[facility] ia 2% 0.2 mL - Injection, l IV Start 13:16: Subcutaneo [facility] [[facility]] 00 us, Once PRN for other (see comment), first dose 03/12/23 8:16:00 CDT Lidocaine 3-0 No 0.2 mL, Memor ia 2% 0.2 mL - Injection, l IV Start 13:16: Subcutaneo [facility] [[facility]] 00 us, Once PRN for other (see comment), first dose 03/12/23 8:16:00 CDT Lidocaine 3-0 No 0.2 mL, Memor ia 2% 0.2 mL - Injection, l IV Start 13:16: Subcutaneo [facility] [[facility]] 00 us, Once PRN for other (see comment), first dose 03/12/23 8:16:00 CDT Trulicity 3-0 Yes 0 Memoria Pen 0.75 6-14 Refill(s), l mg/0.5 mL 19:42: diabetes Herm fidel subcutaneou 00 s solution Trulicity 2022-0 Yes 0 Memoria Pen 0.75 6-14 Refill(s), l mg/0.5 mL 19:42: diabetes Herm fidel subcutaneou 00 s solution Trulicity 2022-0 Yes 0 Memoria Pen 0.75 6-14 Refill(s), l mg/0.5 mL 19:42: diabetes Herm fidel subcutaneou 00 s solution traMADol 50 2022-0 Yes 50 mg = 1 M emoria mg oral 6-14 tabs, l tablet 19:41: Oral, [place] 00 q12hr, PRN for pain, PRN pain traMADol 50 2022-0 Yes 50 mg = 1 M emoria mg oral 6-14 tabs, l tablet 19:41: Oral, [place] 00 q12hr, PRN for pain, PRN pain traMADol 50 2022-0 Yes 50 mg = 1 M emoria mg oral 6-14 tabs, l tablet 19:41: Oral, [place] 00 q12hr, PRN for pain, PRN pain rosuvastati 2022-0 Yes 5 mg = 1 Me moria n 5 mg oral 6-14 tabs, l tablet 19:40: Oral, [place] 00 Daily, high cholestero l Tradjenta 5 2022-0 Yes 5 mg = 1 Me moria mg oral 6-14 tabs, l tablet 19:40: Oral, [place] Daily rosuvastati 2022-0 Yes 5 mg = 1 Me moria n 5 mg oral 6-14 tabs, l tablet 19:40: Oral, [place] 00 Daily, high cholestero l Tradjenta 5 2022-0 Yes 5 mg = 1 Me moria mg oral 6-14 tabs, l tablet 19:40: Oral, [place] 00 Daily rosuvastati 2022-0 Yes 5 mg = 1 Me moria n 5 mg oral 6-14 tabs, l tablet 19:40: Oral, [place] 00 Daily, high cholestero l Tradjenta 5 2022-0 Yes 5 mg = 1 Me moria mg oral 6-14 tabs, l tablet 19:40: Oral, [place] 00 Daily hydrochloro 3-0 Yes 1 tabs, Mem oria thiazide-li 6-14 Oral, l sinopril 19:38: Daily, [place] 12.5 mg-20 00 hypertensi mg oral on tablet hydrochloro 2022-0 Yes 1 tabs, Mem oria thiazide-li 6-14 Oral, l sinopril 19:38: Daily, [place] 12.5 mg-20 00 hypertensi mg oral on tablet hydrochloro 2022-0 Yes 1 tabs, Mem oria thiazide-li 6-14 Oral, l sinopril 19:38: Daily, [place] 12.5 mg-20 00 hypertensi mg oral on tablet Medrol 4 MG Medrol 4 MG 2021-09- No QD Medrol 4 1-04 11-09 MG 00:00: 00:00 00 :00 Azithromyci Azithromyci 2021- No QD Azithromyc n 250 MG n 250 MG 06-02 in 250 MG 00:00: 00:00 00 :00 Azithromyci Azithromyci 2021- No QD Azithromyc n 250 MG n 250 MG 06-02 in 250 MG 00:00: 00:00 00 :00 Cyclobenzap Cyclobenzap 2021- No 1{table QD Cyclobenza rine HCl 5 rine HCl 5 05-19 t_at_be juwan HCl MG MG 00:00: 00:00 dtime_a 5 MG 00 :00 s_neede d} Cyclobenzap Cyclobenzap 2021- No 1{table QD Cyclobenza rine HCl 5 rine HCl 5 05-19 t_at_be juwan HCl MG MG 00:00: 00:00 dtime_a 5 MG 00 :00 s_neede d} Cyclobenzap Cyclobenzap 2021- No 1{table QD Cyclobenza rine HCl 5 rine HCl 5 05-19 t_at_be juwan HCl MG MG 00:00: 00:00 dtime_a 5 MG 00 :00 s_neede d} glipiZIDE 2021-0 Yes TAKE ONE Univ ers XL 5 mg 24 7- (1) ity of hr tablet 00:00: TABLET(S) [place] 00 BY MOUTH Medical ONCE A DAY Branch WITH FOOD. glipiZIDE 2021-0 Yes TAKE ONE Univ ers XL 5 mg 24 7- (1) ity of hr tablet 00:00: TABLET(S) [place] 00 BY MOUTH Medical ONCE A DAY Branch WITH FOOD. glipiZIDE 2021-0 Yes TAKE ONE Univ ers XL 5 mg 24 7- (1) ity of hr tablet 00:00: TABLET(S) [place] 00 BY MOUTH Medical ONCE A DAY Branch WITH FOOD. glipiZIDE 2022-0 Yes TAKE ONE Univ ers XL 5 mg 24 7-01 (1) ity of hr tablet 00:00: TABLET(S) [place] 00 BY MOUTH Medical ONCE A DAY Branch WITH FOOD. glipiZIDE 2021-0 Yes TAKE ONE Univ ers XL 5 mg 03-24 (1) ity of hr tablet 00:00: TABLET(S) [place] 00 BY MOUTH Medical ONCE A DAY Branch WITH FOOD. glipiZIDE 2021-0 Yes TAKE ONE Univ ers XL 5 mg 03-24 (1) ity of hr tablet 00:00: TABLET(S) [place] 00 BY MOUTH Medical ONCE A DAY Branch WITH FOOD. glipiZIDE 2021-0 Yes TAKE ONE Univ ers XL 5 mg 03-24 (1) ity of hr tablet 00:00: TABLET(S) [place] 00 BY MOUTH Medical ONCE A DAY Branch WITH FOOD. glipiZIDE 0 2022- No TAKE ONE Uni vers XL 5 mg 03-2424 (1) ity of hr tablet 00:00: 00:00 TABLET(S) [place] 00 :00 BY MOUTH Medical ONCE A DAY Branch WITH FOOD. glipiZIDE 0 2022- No TAKE ONE Uni vers XL 5 mg 03-2424 (1) ity of hr tablet 00:00: 00:00 TABLET(S) [place] 00 :00 BY MOUTH Medical ONCE A DAY Branch WITH FOOD. glipiZIDE 2021-0 2022- No TAKE ONE Uni vers XL 5 mg 03-2424 (1) ity of hr tablet 00:00: 00:00 TABLET(S) [place] 00 :00 BY MOUTH Medical ONCE A DAY Branch WITH FOOD. glipiZIDE glipiZIDE 2021-0 No 1{table QD glipiZIDE ER 5 MG ER 5 MG 6-30 t_with_ ER 5 MG 00:00: food} 00 glipiZIDE glipiZIDE 2021-0 No 1{table QD glipiZIDE ER 5 MG ER 5 MG 6-30 t_with_ ER 5 MG 00:00: food} 00 glipiZIDE glipiZIDE 2021-0 No 1{table QD glipiZIDE ER 5 MG ER 5 MG 6-30 t_with_ ER 5 MG 00:00: food} 00 glipiZIDE glipiZIDE 2-0 No 1{table QD glipiZIDE ER 5 MG ER 5 MG 6-30 t_with_ ER 5 MG 00:00: food} 00 glipiZIDE glipiZIDE 2-0 No 1{table QD glipiZIDE ER 5 MG ER 5 MG 6-30 t_with_ ER 5 MG 00:00: food} 00 glipiZIDE glipiZIDE 2-0 No 1{table QD glipiZIDE ER 5 MG ER 5 MG 6-30 t_with_ ER 5 MG 00:00: food} 00 glipiZIDE glipiZIDE 2-0 No 1{table QD glipiZIDE ER 5 MG ER 5 MG 6-30 t_with_ ER 5 MG 00:00: food} 00 glipiZIDE glipiZIDE 2-0 No 1{table QD glipiZIDE ER 5 MG ER 5 MG 6-30 t_with_ ER 5 MG 00:00: food} 00 glipiZIDE glipiZIDE 2-0 No 1{table QD glipiZIDE ER 5 MG ER 5 MG 6-30 t_with_ ER 5 MG 00:00: food} 00 glipiZIDE glipiZIDE 2-0 No 1{table QD glipiZIDE ER 5 MG ER 5 MG 6-30 t_with_ ER 5 MG 00:00: food} 00 glipiZIDE glipiZIDE 2-0 No 1{table QD glipiZIDE ER 5 MG ER 5 MG 6-30 t_with_ ER 5 MG 00:00: food} 00 glipiZIDE glipiZIDE 2-0 No 1{table QD glipiZIDE ER 5 MG ER 5 MG 6-30 t_with_ ER 5 MG 00:00: food} 00 glipiZIDE glipiZIDE 2022-0 No 1{table QD glipiZIDE ER 5 MG ER 5 MG 6-30 t_with_ ER 5 MG 00:00: food} 00 glipiZIDE glipiZIDE 2022-0 No 1{table QD glipiZIDE ER 5 MG ER 5 MG 6-30 t_with_ ER 5 MG 00:00: food} 00 glipiZIDE glipiZIDE 2-0 No 1{table QD glipiZIDE ER 5 MG ER 5 MG 6-30 t_with_ ER 5 MG 00:00: food} 00 glipiZIDE glipiZIDE 2021-0 No 1{table QD glipiZIDE ER 5 MG ER 5 MG 6-30 t_with_ ER 5 MG 00:00: food} 00 glipiZIDE glipiZIDE 2021-0 No 1{table QD glipiZIDE ER 5 MG ER 5 MG 6-30 t_with_ ER 5 MG 00:00: food} 00 glipiZIDE 2021-0 Yes 10mg Take 10 mg Un arcenio XL 10 mg 24 5-31 by mouth ity of hr tablet 00:00: daily with [place] 00 breakfast. Medical Branch glipiZIDE 0 Yes 10mg Take 10 mg Un arcenio XL 10 mg 24 5-31 by mouth ity of hr tablet 00:00: daily with [place] 00 breakfast. Medical Branch glipiZIDE 2021-0 Yes 10mg Take 10 mg Un arcenio XL 10 mg 24 5-31 by mouth ity of hr tablet 00:00: daily with [place] 00 breakfast. Medical Branch glipiZIDE 0 Yes 10mg Take 10 mg Un arcenio XL 10 mg 24 5-31 by mouth ity of hr tablet 00:00: daily with [place] 00 breakfast. Medical Branch glipiZIDE 2021-0 Yes 10mg Take 10 mg Un arcenio XL 10 mg 24 5-31 by mouth ity of hr tablet 00:00: daily with [place] 00 breakfast. Medical Branch glipiZIDE 2021-0 Yes 10mg Take 10 mg Un arcenio XL 10 mg 24 5-31 by mouth ity of hr tablet 00:00: daily with [place] 00 breakfast. Medical Branch glipiZIDE 2021-0 Yes 10mg Take 10 mg Un arcenio XL 10 mg 24 5-31 by mouth ity of hr tablet 00:00: daily with [place] 00 breakfast. Medical Branch glipiZIDE 2021-0 2022- No 10mg Take 10 mg U nivers XL 10 mg 24 5-31 07-24 by mouth ity of hr tablet 00:00: 00:00 daily with [place] 00 :00 breakfast. Medical Branch glipiZIDE 2021-0 2023- No 10mg Take 10 mg U nivers XL 10 mg 24 02-21 by mouth ity of hr tablet 00:00: 00:00 daily with [place] 00 :00 breakfast. Medical Branch glipiZIDE 0 3- No 10mg Take 10 mg U nivers XL 10 mg 24 02-21 by mouth ity of hr tablet 00:00: 00:00 daily with [place] 00 :00 breakfast. Medical Branch lisinopriL- 0 Yes 1{tbl} Take 1 Un arcenio hydrochloro 4-23 tablet by ity of thiazide 00:00: mouth [place] 20-12.5 mg 00 daily. Medical per tablet Branch lisinopriL- Yes 1{tbl} Take 1 Un arcenio hydrochloro 4-23 tablet by ity of thiazide 00:00: mouth [place] 20-12.5 mg 00 daily. Medical per tablet Branch lisinopriL- 0 Yes 1{tbl} Take 1 Un arcenio hydrochloro 4-23 tablet by ity of thiazide 00:00: mouth [place] 20-12.5 mg 00 daily. Medical per tablet Branch lisinopriL- Yes 1{tbl} Take 1 Un arcenio hydrochloro 4-23 tablet by ity of thiazide 00:00: mouth [place] 20-12.5 mg 00 daily. Medical per tablet Branch lisinopriL- Yes 1{tbl} Take 1 Un arcenio hydrochloro 4-23 tablet by ity of thiazide 00:00: mouth [place] 20-12.5 mg 00 daily. Medical per tablet Branch lisinopriL- Yes 1{tbl} Take 1 Un arcenio hydrochloro 4-23 tablet by ity of thiazide 00:00: mouth [place] 20-12.5 mg 00 daily. Medical per tablet Branch lisinopriL- 2021-0 Yes 1{tbl} Take 1 Un arcenio hydrochloro 4-23 tablet by ity of thiazide 00:00: mouth [place] 20-12.5 mg 00 daily. Medical per tablet Branch lisinopriL- Yes 1{tbl} Take 1 Un arcenio hydrochloro 4-23 tablet by ity of thiazide 00:00: mouth [place] 20-12.5 mg 00 daily. Medical per tablet Branch lisinopriL- 0 Yes 1{tbl} Take 1 Un arcenio hydrochloro 4-23 tablet by ity of thiazide 00:00: mouth [place] 20-12.5 mg 00 daily. Medical per tablet Branch lisinopriL- 0 Yes 1{tbl} Take 1 Un arcenio hydrochloro 4-23 tablet by ity of thiazide 00:00: mouth [place] 20-12.5 mg 00 daily. Medical per tablet Branch lisinopriL- 0 Yes 1{tbl} Take 1 Un arcenio hydrochloro 4-23 tablet by ity of thiazide 00:00: mouth [place] 20-12.5 mg 00 daily. Medical per tablet Branch lisinopriL- Yes 1{tbl} Take 1 Un arcenio hydrochloro 4-23 tablet by ity of thiazide 00:00: mouth [place] 20-12.5 mg 00 daily. Medical per tablet Branch lisinopriL- Yes 1{tbl} Take 1 Un arcenio hydrochloro 4-23 tablet by ity of thiazide 00:00: mouth [place] 20-12.5 mg 00 daily. Medical per tablet Branch lisinopriL- Yes 1{tbl} Take 1 Un arcenio hydrochloro 4-23 tablet by ity of thiazide 00:00: mouth [place] 20-12.5 mg 00 daily. Medical per tablet Branch lisinopriL- Yes 1{tbl} Take 1 Un arcenio hydrochloro 4-23 tablet by ity of thiazide 00:00: mouth [place] 20-12.5 mg 00 daily. Medical per tablet Branch lisinopriL- Yes 1{tbl} Take 1 Un arcenio hydrochloro 4-23 tablet by ity of thiazide 00:00: mouth [place] 20-12.5 mg 00 daily. Medical per tablet Branch lisinopriL- 0 Yes 1{tbl} Take 1 Un arcenio hydrochloro 4-23 tablet by ity of thiazide 00:00: mouth [place] 20-12.5 mg 00 daily. Medical per tablet Branch lisinopriL- 0 Yes 1{tbl} Take 1 Un arcenio hydrochloro 4-23 tablet by ity of thiazide 00:00: mouth [place] 20-12.5 mg 00 daily. Medical per tablet Branch lisinopriL- 2021-0 Yes 1{tbl} Take 1 Un arcenio hydrochloro 4-23 tablet by ity of thiazide 00:00: mouth [place] 20-12.5 mg 00 daily. Medical per tablet Branch lisinopriL- 2021-0 Yes 1{tbl} Take 1 Un arcenio hydrochloro 4-23 tablet by ity of thiazide 00:00: mouth [place] 20-12.5 mg 00 daily. Medical per tablet Branch lisinopriL- 0 Yes 1{tbl} Take 1 Un arcenio hydrochloro 4-23 tablet by ity of thiazide 00:00: mouth [place] 20-12.5 mg 00 daily. Medical per tablet Branch lisinopriL- 0 Yes 1{tbl} Take 1 Un arcenio hydrochloro 4-23 tablet by ity of thiazide 00:00: mouth [place] 20-12.5 mg 00 daily. Medical per tablet Branch lisinopriL- 0 Yes 1{tbl} Take 1 Un arcenio hydrochloro 4-23 tablet by ity of thiazide 00:00: mouth [place] 20-12.5 mg 00 daily. Medical per tablet Branch lisinopriL- 0 Yes 1{tbl} Take 1 Un arcenio hydrochloro 4-23 tablet by ity of thiazide 00:00: mouth [place] 20-12.5 mg 00 daily. Medical per tablet Branch lisinopriL- 0 Yes 1{tbl} Take 1 Un arcenio hydrochloro 4-23 tablet by ity of thiazide 00:00: mouth [place] 20-12.5 mg 00 daily. Medical per tablet Branch rosuvastati 0 Yes 5mg Take 5 mg U nivers n 5 mg 4-21 by mouth ity of tablet 00:00: daily. Medical Branch rosuvastati 2021-0 Yes 5mg Take 5 mg U nivers n 5 mg 4-21 by mouth ity of tablet 00:00: daily. Medical Branch rosuvastati 2021-0 Yes 5mg Take 5 mg U nivers n 5 mg 4-21 by mouth ity of tablet 00:00: daily. Medical Branch rosuvastati 2022-0 Yes 5mg Take 5 mg U nivers n 5 mg 4-21 by mouth ity of tablet 00:00: daily. [facility] Branch rosuvastati 2022-0 Yes 5mg Take 5 mg U nivers n 5 mg 4-21 by mouth ity of tablet 00:00: daily. Medical Branch rosuvastati 2022-0 Yes 5mg Take 5 mg U nivers n 5 mg 4-21 by mouth ity of tablet 00:00: daily. Medical Branch rosuvastati 2022-0 Yes 5mg Take 5 mg U nivers n 5 mg 4-21 by mouth ity of tablet 00:00: daily. [place] [facility] rosuvastati 2022-0 Yes 5mg Take 5 mg U nivers n 5 mg 4-21 by mouth ity of tablet 00:00: daily. [place] [facility] Branch rosuvastati 2-0 Yes 5mg Take 5 mg U nivers n 5 mg 4-21 by mouth ity of tablet 00:00: daily. [place] [facility] Branch rosuvastati 2022-0 Yes 5mg Take 5 mg U nivers n 5 mg 4-21 by mouth ity of tablet 00:00: daily. [facility] Branch rosuvastati 2022-0 Yes 5mg Take 5 mg U nivers n 5 mg 4-21 by mouth ity of tablet 00:00: daily. [facility] Branch rosuvastati 2-0 Yes 5mg Take 5 mg U nivers n 5 mg 4-21 by mouth ity of tablet 00:00: daily. [place] [facility] Branch rosuvastati 2022-0 Yes 5mg Take 5 mg U nivers n 5 mg 4-21 by mouth ity of tablet 00:00: daily. [facility] Branch rosuvastati 2022-0 Yes 5mg Take 5 mg U nivers n 5 mg 4-21 by mouth ity of tablet 00:00: daily. Medical Branch rosuvastati 2022-0 Yes 5mg Take 5 mg U nivers n 5 mg 4-21 by mouth ity of tablet 00:00: daily. [place] [facility] Branch rosuvastati 2022-0 Yes 5mg Take 5 mg U nivers n 5 mg 4-21 by mouth ity of tablet 00:00: daily. Medical Branch rosuvastati 2-0 Yes 5mg Take 5 mg U nivers n 5 mg 4-21 by mouth ity of tablet 00:00: daily. [place] [facility] Branch rosuvastati 2-0 Yes 5mg Take 5 mg U nivers n 5 mg 4-21 by mouth ity of tablet 00:00: daily. [place] [facility] Branch rosuvastati 2021-0 Yes 5mg Take 5 mg U nivers n 5 mg 4-21 by mouth ity of tablet 00:00: daily. [place] [facility] Branch rosuvastati 2-0 Yes 5mg Take 5 mg U nivers n 5 mg 4-21 by mouth ity of tablet 00:00: daily. [place] [facility] Branch rosuvastati 2021-0 Yes 5mg Take 5 mg U nivers n 5 mg 4-21 by mouth ity of tablet 00:00: daily. [place] [facility] Branch rosuvastati 2021-0 Yes 5mg Take 5 mg U nivers n 5 mg 4-21 by mouth ity of tablet 00:00: daily. [place] [facility] Branch rosuvastati 2021-0 Yes 5mg Take 5 mg U nivers n 5 mg 4-21 by mouth ity of tablet 00:00: daily. [place] [facility] Branch rosuvastati 2-0 Yes 5mg Take 5 mg U nivers n 5 mg 4-21 by mouth ity of tablet 00:00: daily. [place] [facility] Branch rosuvastati 2021-0 Yes 5mg Take 5 mg U nivers n 5 mg 4-21 by mouth ity of tablet 00:00: daily. [address] Branch Medrol 4 MG Medrol 4 MG 2021-0 2021- No QD Medrol 4 10-21 02-03 MG 00:00: 00:00 00 :00 Medrol 4 MG Medrol 4 MG 2021-0 2021- No QD Medrol 4 10-21 02-03 MG 00:00: 00:00 00 :00 Macrobid Macrobid 2021-0 2021- No 1{capsu BID Macrobid 100 MG 100 MG 10-03 le_with 100 MG 00:00: 00:00 _food} 00 :00 Macrobid Macrobid 2021-0 2021- No 1{capsu BID 100 MG 100 MG 10-03 le_with 00:00: 00:00 _food} 00 :00 FreeStyle FreeStyle 1-1 No FreeStyle Denisha 2 Denisha 2 0-28 Denisha 2 Sensor - Sensor - 00:00: Sensor - 00 FreeStyle FreeStyle 1-1 No FreeStyle Denisha 2 Denisha 2 0-28 [place] 2 [place] - [place]: [place] - 00 FreeStyle FreeStyle 1-1 No FreeStyle Denisha 2 Denisha 2 0-28 Denisha 2 Sensor - Sensor - 00:00: Sensor - 00 FreeStyle FreeStyle 1-1 No FreeStyle Denisha 2 Denisha 2 0-28 [place] 2 [place] - 00:00: [place] - 00 FreeStyle FreeStyle 1-1 No FreeStyle Denisha 2 Denisha 2 0-28 Denisha 2 Sensor - Sensor - 00:00: Sensor - 00 FreeStyle FreeStyle 1-1 No FreeStyle Denisha 2 Denisha 2 0-28 [place]isha 2 [place] - 00:00: [place] - 00 FreeStyle FreeStyle 1-1 No Denisha 2 Denisha 2 0-28 Sensor - Sensor - 00:00: 00 FreeStyle FreeStyle 1-1 No Denisha 2 Denisha 2 0-28 [place] - 00:00: 00 Bupivicaine Bupivicaine 1-0 No 2.5mg [place] 5[facility]17 [facility] 00:00: - [facility]I 00 [facility] Kenalog Kenalog 2020-0 No 40mg Common (Triamcinol (Triamcinol 5-17 S pirit one) one) 00:00: - CHI 00 [facility] Bupivicaine Bupivicaine 1-0 No 2.5mg Common [place] 5[place]17 [facility] 00:00: - CHI 00 [facility] Kenalog Kenalog 1-0 No 40mg Common (Triamcinol (Triamcinol 5-17 S pirit one) one) 00:00: - CHI 00 [facility] Bupivicaine Bupivicaine 1-0 No 2.5mg Common [place] 5-17 [facility] 00:00: - CHI 00 [facility] Kenalog Kenalog 2020-0 No 40mg Common (Triamcinol (Triamcinol 5-17 S pirit one) one) 00:00: - CHI 00 [facility] Bupivicaine Bupivicaine 2020-0 No 2.5mg Common [place] 5-17 [facility] 00:00: - CHI 00 [facility] Kenalog Kenalog 2020-0 No 40mg Common (Triamcinol (Triamcinol 5-17 S pirit one) one) 00:00: - CHI 00 [facility] Bupivicaine Bupivicaine 2020-0 No Common [place] 5-17 [facility] 00:00: - CHI 00 [facility] Kenalog Kenalog 2020-0 No 40mg Common (Triamcinol (Triamcinol 5-17 S pirit one) one) 00:00: - [facility] 00 [facility] Bupivicaine Bupivicaine 2020-0 No 2.5mg Common [place] 5-17 Spirit 00:00: - [facility] 00 [facility] Kenalog Kenalog 2020-0 No 40mg Common (Triamcinol (Triamcinol 5-17 S pirit one) one) 00:00: - [facility] 00 [facility] Bupivicaine Bupivicaine 2020-0 No 2.5mg Common [place] 5-17 Spirit 00:00: - [facility] 00 [facility] Kenalog Kenalog 2020-0 No 40mg Common (Triamcinol (Triamcinol 5-17 S pirit one) one) 00:00: - [facility] 00 [facility] Bupivicaine Bupivicaine 2020-0 No 2.5mg Common [place] 5-17 Spirit 00:00: - [facility] 00 [facility] Kenalog Kenalog 2020-0 No 40mg Common (Triamcinol (Triamcinol 5-17 S pirit one) one) 00:00: - [facility] 00 [facility] Bupivicaine Bupivicaine 2020-0 No 2.5mg Common [place] 5-17 Spirit 00:00: - [facility] 00 [facility] Kenalog Kenalog 2020-0 No 40mg Common (Triamcinol (Triamcinol 5-17 S pirit one) one) 00:00: - [facility] 00 [facility] Bupivicaine Bupivicaine 2020-0 No 2.5mg Common [place] 5-17 Spirit 00:00: - [facility] 00 [facility] Kenalog Kenalog 2020-0 No 40mg Common (Triamcinol (Triamcinol 5-17 S pirit one) one) 00:00: - [facility] 00 [facility] Bupivicaine Bupivicaine 2020-0 No 2.5mg Common [place] 5-17 Spirit 00:00: - [facility] 00 [facility] Kenalog Kenalog 2020-0 No 40mg Common (Triamcinol (Triamcinol 5-17 S pirit one) one) 00:00: - [facility] 00 [facility] Bupivicaine Bupivicaine 2020-0 No 2.5mg Common [place] 5-17 Spirit 00:00: - [facility] 00 [facility] Kenalog Kenalog 2020-0 No 40mg Common (Triamcinol (Triamcinol 5-17 S pirit one) one) 00:00: - [facility] 00 [facility] Bupivicaine Bupivicaine 2020-0 No 2.5mg Common [place] 5-17 Spirit 00:00: - [facility] 00 [facility] Kenalog Kenalog 2020-0 No 40mg Common (Triamcinol (Triamcinol 5-17 S pirit one) one) 00:00: - [facility] 00 [facility] Bupivicaine Bupivicaine 2020-0 No 2.5mg Common [place] 5-17 Spirit 00:00: - [facility] 00 [facility] Kenalog Kenalog 2020-0 No 40mg Common (Triamcinol (Triamcinol 5-17 S pirit one) one) 00:00: - [facility] 00 [facility] Bupivicaine Bupivicaine 2020-0 No 2.5mg Common [place] 5-17 Spirit 00:00: - [facility] 00 [facility] Kenalog Kenalog 2020-0 No 40mg Common (Triamcinol (Triamcinol 5-17 S pirit one) one) 00:00: - [facility] 00 [facility] Bupivicaine Bupivicaine 2020-0 No 2.5mg Common [place] 5-17 Spirit 00:00: - [facility] 00 [facility] Kenalog Kenalog 2020-0 No 40mg Common (Triamcinol (Triamcinol 5-17 S pirit one) one) 00:00: - [facility] 00 [facility] Bupivicaine Bupivicaine 2020-0 No 2.5mg Common [place] 5-17 Spirit 00:00: - [facility] 00 [facility] Kenalog Kenalog 2020-0 No 40mg Common (Triamcinol (Triamcinol 5-17 S pirit one) one) 00:00: - [facility] 00 [facility] Bupivicaine Bupivicaine 2020-0 No 2.5mg Common [place] 5-17 Spirit 00:00: - [facility] 00 [facility] Kenalog Kenalog 2020-0 No 40mg Common (Triamcinol (Triamcinol 5-17 S pirit one) one) 00:00: - [facility] 00 [facility] Bupivicaine Bupivicaine 2020-0 No 2.5mg Common [place] 5-17 Spirit 00:00: - [facility] 00 [facility] Kenalog Kenalog 2020-0 No 40mg Common (Triamcinol (Triamcinol 5-17 S pirit one) one) 00:00: - [facility] 00 [facility] Bupivicaine Bupivicaine 2020-0 No 2.5mg Common [place] 5-17 Spirit 00:00: - [facility] 00 [facility] Kenalog Kenalog 2020-0 No 40mg Common (Triamcinol (Triamcinol 5-17 S pirit one) one) 00:00: - [facility] 00 [facility] OneTouch OneTouch 2020-0 No QID OneTouch Verio - Verio - 12-31 Verio - 00:00: 00 OneTouch OneTouch 2020-0 No QID OneTouch Verio - Verio - 12-31 Verio - 00:00: 00 OneTouch OneTouch 2020-0 No QID OneTouch Verio - Verio - 12-31 Verio - 00:00: 00 OneTouch OneTouch 2021-0 No QID Verio - Verio - 4-09 00:00: 00 OneTouch OneTouch 2021-0 No QID OneTouch Verio - Verio - 4-09 Verio - 00:00: 00 OneTouch OneTouch 2021-0 No QID OneTouch Verio - Verio - 4-09 Verio - 00:00: 00 OneTouch OneTouch 2021-0 No QID OneTouch Verio - Verio - 4-09 Verio - 00:00: 00 OneTouch OneTouch 2021-0 No QID OneTouch Verio - Verio - 4-09 Verio - 00:00: 00 OneTouch OneTouch 1-0 No QID Verio - Verio - 4-09 00:00: 00 OneTouch OneTouch 2021-0 No QID OneTouch Verio - Verio - 4-09 Verio - 00:00: 00 OneTouch OneTouch 1-0 No QID OneTouch Verio - Verio - 4-09 Verio - 00:00: 00 BD BD 2020-0 No BD Ultra-Fine Ultra-Fine 3-17 Ultra-Fine Layne Pen Layne Pen 00:00: Layne Pen Upton 4mm Upton 4mm 00 Upton x 32Gm x 32Gm 4mm x 32Gm BD BD 2020-0 No BD Ultra-Fine Ultra-Fine 3-17 Ultra-Fine Layne Pen Layne Pen 00:00: Layne Pen Upton 4mm Upton 4mm 00 Upton x 32Gm x 32Gm 4mm x 32Gm BD BD 2020-0 No BD Ultra-Fine Ultra-Fine 3-17 Ultra-Fine Layne Pen Layne Pen 00:00: Layne Pen Upton 4mm Upton 4mm 00 Upton x 32Gm x 32Gm 4mm x 32Gm BD BD 2020-0 No BD Ultra-Fine Ultra-Fine 3-17 Ultra-Fine Layne Pen Layne Pen 00:00: Layne Pen Upton 4mm Upton 4mm 00 Upton x 32Gm x 32Gm 4mm x 32Gm BD BD 2020-0 No BD Ultra-Fine Ultra-Fine 3-17 Ultra-Fine Layne Pen Layne Pen 00:00: Layne Pen Upton 4mm Upton 4mm 00 Upton x 32Gm x 32Gm 4mm x 32Gm BD BD 2020-0 No BD Ultra-Fine Ultra-Fine 3-17 Ultra-Fine Layne Pen Layne Pen 00:00: Layne Pen Upton 4mm Upton 4mm 00 Upton x 32Gm x 32Gm 4mm x 32Gm BD BD 2020-0 No BD Ultra-Fine Ultra-Fine 3-17 Ultra-Fine Layne Pen Layne Pen 00:00: Layne Pen Upton 4mm Upton 4mm 00 Upton x 32Gm x 32Gm 4mm x 32Gm BD BD 2020-0 No Ultra-Fine Ultra-Fine 3-17 Layne Pen Layne Pen 00:00: Upton 4mm Upton 4mm 00 x 32Gm x 32Gm BD BD 2020-0 No BD Ultra-Fine Ultra-Fine 3-17 Ultra-Fine Layne Pen Layne Pen 00:00: Layne Pen Upton 4mm Upton 4mm 00 Upton x 32Gm x 32Gm 4mm x 32Gm BD BD 0 No BD Ultra-Fine Ultra-Fine 3-17 Ultra-Fine Layne Pen Layne Pen 00:00: Layne Pen Upton 4mm Upton 4mm 00 Upton x 32Gm x 32Gm 4mm x 32Gm BD BD 2020-0 No BD Ultra-Fine Ultra-Fine 3-17 Ultra-Fine Layne Pen Layne Pen 00:00: Layne Pen Upton 4mm Upton 4mm 00 Upton x 32Gm x 32Gm 4mm x 32Gm BD BD 0 No BD Ultra-Fine Ultra-Fine 3-17 Ultra-Fine Layne Pen Layne Pen 00:00: Layne Pen Upton 4mm Upton 4mm 00 Upton x 32Gm x 32Gm 4mm x 32Gm BD BD 0 No Ultra-Fine Ultra-Fine 3-17 Layne Pen Layne Pen 00:00: Upton 4mm Upton 4mm 00 x 32Gm x 32Gm BD BD 2020-0 No BD Ultra-Fine Ultra-Fine 3-17 Ultra-Fine Layne Pen Layne Pen 00:00: Layne Pen Upton 4mm Upton 4mm 00 Upton x 32Gm x 32Gm 4mm x 32Gm BD BD 2020-0 No BD Ultra-Fine Ultra-Fine 3-17 Ultra-Fine Layne Pen Layne Pen 00:00: Layne Pen Upton 4mm Upton 4mm 00 Upton x 32Gm x 32Gm 4mm x 32Gm BD BD 2020-0 No BD Ultra-Fine Ultra-Fine 3-17 Ultra-Fine Layne Pen Layne Pen 00:00: Layne Pen Upton 4mm Upton 4mm 00 Upton x 32Gm x 32Gm 4mm x 32Gm BD BD 0 No BD Ultra-Fine Ultra-Fine 3-17 Ultra-Fine Layne Pen Layne Pen 00:00: Layne Pen Upton 4mm Upton 4mm 00 Upton x 32Gm x 32Gm 4mm x 32Gm BD BD 0 No BD Ultra-Fine Ultra-Fine 3-17 Ultra-Fine Layne Pen Layne Pen 00:00: Layne Pen Upton 4mm Upton 4mm 00 Upton x 32Gm x 32Gm 4mm x 32Gm BD BD 0 No BD Ultra-Fine Ultra-Fine 3-17 Ultra-Fine Layne Pen Layne Pen 00:00: Layne Pen Upton 4mm Upton 4mm 00 Upton x 32Gm x 32Gm 4mm x 32Gm BD BD 0 No BD Ultra-Fine Ultra-Fine 3-17 Ultra-Fine Layne Pen Layne Pen 00:00: Layne Pen Upton 4mm Upton 4mm 00 Upton x 32Gm x 32Gm 4mm x 32Gm BD BD 0 No BD Ultra-Fine Ultra-Fine 3-17 Ultra-Fine Layne Pen Layne Pen 00:00: Layne Pen Upton 4mm Upton 4mm 00 Upton x 32Gm x 32Gm 4mm x 32Gm BD BD 0 No BD Ultra-Fine Ultra-Fine 3-17 Ultra-Fine Layne Pen Layne Pen 00:00: Layne Pen Upton 4mm Upton 4mm 00 Upton x 32Gm x 32Gm 4mm x 32Gm BD BD 0 No BD Ultra-Fine Ultra-Fine 3-17 Ultra-Fine Layne Pen Layne Pen 00:00: Layne Pen Upton 4mm Upton 4mm 00 Upton x 32Gm x 32Gm 4mm x 32Gm BD BD 0 No BD Ultra-Fine Ultra-Fine 3-17 Ultra-Fine Layne Pen Layne Pen 00:00: Layne Pen Upton 4mm Upton 4mm 00 Upton x 32Gm x 32Gm 4mm x 32Gm BD BD 0 No BD Ultra-Fine Ultra-Fine 3-17 Ultra-Fine Layne Pen Layne Pen 00:00: Layne Pen Upton 4mm Upton 4mm 00 Upton x 32Gm x 32Gm 4mm x 32Gm BD BD 0 No BD Ultra-Fine Ultra-Fine 3-17 Ultra-Fine Layne Pen Layne Pen 00:00: Layne Pen Upton 4mm Upton 4mm 00 Upton x 32Gm x 32Gm 4mm x 32Gm BD BD 2021-0 No BD Ultra-Fine Ultra-Fine 3-17 Ultra-Fine Layne Pen Layne Pen 00:00: Layne Pen Upton 4mm Upton 4mm 00 Upton x 32Gm x 32Gm 4mm x 32Gm BD BD No BD Ultra-Fine Ultra-Fine 3-17 Ultra-Fine Layne Pen Layne Pen 00:00: Layne Pen Upton 4mm Upton 4mm 00 Upton x 32Gm x 32Gm 4mm x 32Gm BD BD No BD Ultra-Fine Ultra-Fine 3-17 Ultra-Fine Layne Pen Layne Pen 00:00: Layne Pen Upton 4mm Upton 4mm 00 Upton x 32Gm x 32Gm 4mm x 32Gm Crestor 5 Crestor 5 No 1{table QD Crestor 5 MG MG 1-12 t} MG 00:00: 00 Collagen Collagen No Collagen Vitamin Vitamin No Vitamin B-12 B-12 B-12 Probiotic Probiotic No Probiotic Turmeric Turmeric No Turmeric FreeStyle FreeStyle No FreeStyle Denisha 2 Denisha 2 Denisha 2 Sensor - Sensor - Sensor - Lisinopril- Lisinopril- No Lisinopril hydroCHLORO hydroCHLORO -hydroCHLO thiazide thiazide ROthiazide 20-12.5 MG 20-12.5 MG 20-12.5 MG Zinc Zinc No Zinc HumaLOG HumaLOG No HumaLOG KwikPen 100 KwikPen 100 KwikPen UNIT/ML UNIT/ML 100 UNIT/ML Vitamin E Vitamin E No Vitamin E Rosuvastati Rosuvastati No Rosuvastat n Calcium 5 n Calcium 5 in Calcium MG MG 5 MG Rosuvastati Rosuvastati No Rosuvastat n Calcium 5 n Calcium 5 in Calcium MG MG 5 MG Vitamin D Vitamin D No Vitamin D Lantus Lantus No QD Lantus SoloStar SoloStar SoloStar 100 UNIT/ML 100 UNIT/ML 100 UNIT/ML Lisinopril- Lisinopril- No 1{table QD Lisinopril hydroCHLORO hydroCHLORO t} -hydroCHLO thiazide thiazide ROthiazide 20-12.5 MG 20-12.5 MG 20-12.5 MG Aspirin Aspirin No 1{table QD Aspirin Adult Low Adult Low t} Adult Low Dose 81 MG Dose 81 MG Dose 81 MG FreeStyle FreeStyle No FreeStyle Denisha 2 Denisha 2 Denisha 2 [place] - glipiZIDE glipiZIDE No 1{table QD glipiZIDE ER 10 MG ER 10 MG t_with_ ER [address]} CoQ-10 CoQ-10 No CoQ-10 Collagen Collagen No Collagen Vitamin Vitamin No Vitamin B-12 B-12 B-12 Farxiga 10 Farxiga 10 No Farxiga 10 [place] mg tablet mg tablet mg tablet da TAKE ONE TAKE ONE TAKE ONE Med ical (1) (1) (1) Group TABLET(S) TABLET(S) TABLET(S) BY MOUTH BY MOUTH BY MOUTH ONCE A DAY. ONCE A DAY. ONCE A DAY. Probiotic Probiotic No Probiotic Turmeric Turmeric No Turmeric FreeStyle FreeStyle No FreeStyle Denisha 2 Denisha 2 Denisha 2 Sensor - Sensor - Sensor - Lisinopril- Lisinopril- No Lisinopril hydroCHLORO hydroCHLORO -hydroCHLO thiazide thiazide ROthiazide 20-12.5 MG 20-12.5 MG 20-12.5 MG Zinc Zinc No Zinc HumaLOG HumaLOG No HumaLOG KwikPen 100 KwikPen 100 KwikPen UNIT/ML UNIT/ML 100 UNIT/ML Vitamin E Vitamin E No Vitamin E Rosuvastati Rosuvastati No Rosuvastat n Calcium 5 n Calcium 5 in Calcium MG MG 5 MG Rosuvastati Rosuvastati No Rosuvastat n Calcium 5 n Calcium 5 in Calcium MG MG 5 MG Vitamin D Vitamin D No Vitamin D Lantus Lantus No QD Lantus SoloStar SoloStar SoloStar 100 UNIT/ML 100 UNIT/ML 100 UNIT/ML Lisinopril- Lisinopril- No 1{table QD Lisinopril hydroCHLORO hydroCHLORO t} -hydroCHLO thiazide thiazide ROthiazide 20-12.5 MG 20-12.5 MG 20-12.5 MG Aspirin Aspirin No 1{table QD Aspirin Adult Low Adult Low t} Adult Low Dose 81 MG Dose 81 MG Dose 81 MG FreeStyle FreeStyle No FreeStyle Denisha 2 Denisha 2 Denisha 2 [place] - glipiZIDE glipiZIDE No 1{table QD glipiZIDE ER 10 MG ER 10 MG t_with_ ER [address]} CoQ-10 CoQ-10 No CoQ-10 Collagen Collagen No Collagen Vitamin Vitamin No Vitamin B-12 B-12 B-12 Probiotic Probiotic No Probiotic Zinc Zinc No Zinc glimepiride glimepiride No glimepirid [place] 4 mg tablet 4 mg tablet e 4 mg da TAKE ONE TAKE ONE tablet Medic al (1) (1) TAKE ONE Group TABLET(S) TABLET(S) (1) BY MOUTH BY MOUTH TABLET(S) TWICE A DAY TWICE A DAY BY MOUTH WITH FOOD. WITH FOOD. TWICE A DAY WITH FOOD. FreeStyle FreeStyle No FreeStyle Denisha 2 Denisha 2 Denisha 2 Sensor - Sensor - Sensor - Turmeric Turmeric No Turmeric Vitamin E Vitamin E No Vitamin E glipiZIDE glipiZIDE No 1{table QD glipiZIDE ER 10 MG ER 10 MG t_with_ ER [address]} HumaLOG HumaLOG No HumaLOG KwikPen 100 KwikPen 100 KwikPen UNIT/ML UNIT/ML 100 UNIT/ML Rosuvastati Rosuvastati No Rosuvastat n Calcium 5 n Calcium 5 in Calcium MG MG 5 MG Vitamin D Vitamin D No Vitamin D Lantus Lantus No QD Lantus SoloStar SoloStar SoloStar 100 UNIT/ML 100 UNIT/ML 100 UNIT/ML Lisinopril- Lisinopril- No 1{table QD Lisinopril hydroCHLORO hydroCHLORO t} -hydroCHLO thiazide thiazide ROthiazide 20-12.5 MG 20-12.5 MG 20-12.5 MG Aspirin Aspirin No 1{table QD Aspirin Adult Low Adult Low t} Adult Low Dose 81 MG Dose 81 MG Dose 81 MG FreeStyle FreeStyle No FreeStyle Denisha 2 Denisha 2 Denisha 2 [place] - Rosuvastati Rosuvastati No Rosuvastat n Calcium 5 n Calcium 5 in Calcium MG MG 5 MG CoQ-10 CoQ-10 No CoQ-10 Collagen Collagen No Collagen Probiotic Probiotic No Probiotic Collagen Collagen No Collagen Turmeric Turmeric No Turmeric Aspirin Aspirin No 1{table QD Aspirin Adult Low Adult Low t} Adult Low Dose 81 MG Dose 81 MG Dose 81 MG Vitamin Vitamin No Vitamin B-12 B-12 B-12 glipiZIDE glipiZIDE No 1{table QD glipiZIDE ER 10 MG ER 10 MG t_with_ ER [address]} insulin insulin No insulin [place] lispro lispro lispro da (U-100) 100 (U-100) 100 (U-100) Medical unit/mL unit/mL 100 Group subcutaneou subcutaneou unit/mL s pen USE s pen USE subcutaneo PER SLIDING PER SLIDING us pen USE SCALE SCALE PER NEEDED NEEDED SLIDING BEFORE BEFORE SCALE MEALS (MAX MEALS (MAX NEEDED DAILY DOSE DAILY DOSE BEFORE 45 UNITS). 45 UNITS). MEALS (MAX DAILY DOSE 45 UNITS). Zinc Zinc No Zinc Vitamin E Vitamin E No Vitamin E HumaLOG HumaLOG No HumaLOG KwikPen 100 KwikPen 100 KwikPen UNIT/ML UNIT/ML 100 UNIT/ML Vitamin D Vitamin D No Vitamin D FreeStyle FreeStyle No FreeStyle Denisha 2 Denisha 2 Denisha 2 Sensor - Sensor - Sensor - FreeStyle FreeStyle No FreeStyle Denisha 2 Denisha 2 Denisha 2 [place] - [place] - CoQ-10 CoQ-10 No CoQ-10 Rosuvastati Rosuvastati No Rosuvastat n Calcium 5 n Calcium 5 in Calcium MG MG 5 MG Rosuvastati Rosuvastati No Rosuvastat n Calcium 5 n Calcium 5 in Calcium MG MG 5 MG Lantus Lantus No QD Lantus SoloStar SoloStar SoloStar 100 UNIT/ML 100 UNIT/ML 100 UNIT/ML Lisinopril- Lisinopril- No 1{table QD Lisinopril hydroCHLORO hydroCHLORO t} -hydroCHLO thiazide thiazide ROthiazide 20-12.5 MG 20-12.5 MG 20-12.5 MG Collagen Collagen No Collagen Vitamin D Vitamin D No Vitamin D Aspirin Aspirin No 1{table QD Aspirin Adult Low Adult Low t} Adult Low Dose 81 MG Dose 81 MG Dose 81 MG Vitamin E Vitamin E No Vitamin E Zinc Zinc No Zinc Rosuvastati Rosuvastati No 1{table QD Rosuvastat n Calcium n Calcium t} in Calcium 10 MG 10 MG 10 MG Lisinopril- Lisinopril- No 1{table QD Lisinopril hydroCHLORO hydroCHLORO t} -hydroCHLO thiazide thiazide ROthiazide 20-12.5 MG 20-12.5 MG 20-12.5 MG Trulicity Trulicity No Trulicity 0.75 0.75 0.75 MG/0.5ML MG/0.5ML MG/0.5ML Probiotic Probiotic No Probiotic Januvia 100 Januvia 100 No Januvia [place] mg tablet mg tablet 100 mg da TAKE 1 TAKE 1 tablet Medical TABLET BY TABLET BY TAKE 1 Yas up MOUTH EVERY MOUTH EVERY TABLET BY DAY DAY MOUTH EVERY DAY FreeStyle FreeStyle No FreeStyle Denisha 2 Denisha 2 Denisha 2 [place] - [place] - Rosuvastati Rosuvastati No Rosuvastat n Calcium 5 n Calcium 5 in Calcium MG MG 5 MG Vitamin Vitamin No Vitamin B-12 B-12 B-12 CoQ-10 CoQ-10 No CoQ-10 Lantus Lantus No QD Lantus SoloStar SoloStar SoloStar 100 UNIT/ML 100 UNIT/ML 100 UNIT/ML Lisinopril- Lisinopril- No 1{table QD Lisinopril hydroCHLORO hydroCHLORO t} -hydroCHLO thiazide thiazide ROthiazide 20-12.5 MG 20-12.5 MG 20-12.5 MG glipiZIDE glipiZIDE No 1{table QD glipiZIDE ER 10 MG ER 10 MG t_with_ ER [address]} HumaLOG HumaLOG No HumaLOG KwikPen 100 KwikPen 100 KwikPen UNIT/ML UNIT/ML 100 UNIT/ML Turmeric Turmeric No Turmeric FreeStyle FreeStyle No FreeStyle Denisha 2 Denisha 2 Denisha 2 Sensor - Sensor - Sensor - glipiZIDE glipiZIDE No 1{table QD glipiZIDE ER 10 MG ER 10 MG t_with_ ER [address]} Lantus Lantus No Lantus [place] Solostar Solostar Solostar da U-100 U-100 U-100 Medical Insulin 100 Insulin 100 Insulin Group unit/mL (3 unit/mL (3 100 mL) mL) unit/mL (3 subcutaneou subcutaneou mL) s pen s pen subcutaneo INJECT 10 INJECT 10 us pen UNITS UNDER UNITS UNDER INJECT 10 THE SKIN THE SKIN UNITS ONCE A DAY. ONCE A DAY. UNDER THE INCREASE BY INCREASE BY SKIN ONCE TWO (2) TWO (2) A DAY. UNITS EVERY UNITS EVERY INCREASE 2 DAYS 2 DAYS BY TWO (2) UNTIL UNTIL UNITS FASTING FASTING EVERY 2 BLOOD BLOOD DAYS UNTIL GLUCOSE IS GLUCOSE IS FASTING LESS THAN LESS THAN BLOOD 100 (MAX OF 100 (MAX OF GLUCOSE IS 30 U 30 U LESS THAN 100 (MAX OF 30 U lisinopril lisinopril No lisinopril [place] 20 20 20 da mg-hydrochl mg-hydrochl mg-hydroch Medical orothiazide orothiazide lorothiazi Group 12.5 mg 12.5 mg de 12.5 mg tablet TAKE tablet TAKE tablet ONE (1) ONE (1) TAKE ONE TABLET(S) TABLET(S) (1) BY MOUTH BY MOUTH TABLET(S) ONCE A DAY. ONCE A DAY. BY MOUTH ONCE A DAY. Macrobid Macrobid No 1capsul BID Macrobid [place] 100 mg 100 mg e(s) 100 mg da capsule capsule capsule Medica l Take 1 Take 1 Take 1 Group capsule capsule capsule twice a day twice a day twice a by oral by oral day by route for 7 route for 7 oral route days. days. for 7 days. OneTouch OneTouch No OneTouch [place] Verio test Verio test Verio test da strips USE strips USE strips USE Medical DIRECTED DIRECTED G roup TO TEST TO TEST DIRECTED BLOOD BLOOD TO TEST GLUCOSE 4 GLUCOSE 4 BLOOD TIMES TIMES GLUCOSE 4 DAILY. DAILY. TIMES DAILY. rosuvastati rosuvastati No rosuvastat [place] n 5 mg n 5 mg in 5 mg da tablet TAKE tablet TAKE tablet Medical ONE (1) ONE (1) TAKE ONE Group TABLET(S) TABLET(S) (1) BY MOUTH BY MOUTH TABLET(S) ONCE A DAY. ONCE A DAY. BY MOUTH ONCE A DAY. insulin insulin No insulin [place] lispro lispro lispro da (U-100) 100 (U-100) 100 (U-100) Medical unit/mL unit/mL 100 Group subcutaneou subcutaneou unit/mL s pen USE s pen USE subcutaneo PER SLIDING PER SLIDING us pen USE SCALE SCALE PER NEEDED NEEDED SLIDING BEFORE BEFORE SCALE MEALS (MAX MEALS (MAX NEEDED DAILY DOSE DAILY DOSE BEFORE 45 UNITS). 45 UNITS). MEALS (MAX DAILY DOSE 45 UNITS). Lantus Lantus No Lantus [place] Solostar Solostar Solostar da U-100 U-100 U-100 Medical Insulin 100 Insulin 100 Insulin Group unit/mL (3 unit/mL (3 100 mL) mL) unit/mL (3 subcutaneou subcutaneou mL) s pen s pen subcutaneo INJECT 10 INJECT 10 us pen UNITS UNDER UNITS UNDER INJECT 10 THE SKIN THE SKIN UNITS ONCE A DAY. ONCE A DAY. UNDER THE INCREASE BY INCREASE BY SKIN ONCE TWO (2) TWO (2) A DAY. UNITS EVERY UNITS EVERY INCREASE 2 DAYS 2 DAYS BY TWO (2) UNTIL UNTIL UNITS FASTING FASTING EVERY 2 BLOOD BLOOD DAYS UNTIL GLUCOSE IS GLUCOSE IS FASTING LESS THAN LESS THAN BLOOD 100 (MAX OF 100 (MAX OF GLUCOSE IS 30 U 30 U LESS THAN 100 (MAX OF 30 U lisinopril lisinopril No lisinopril [place] 20 20 20 da mg-hydrochl mg-hydrochl mg-hydroch Medical orothiazide orothiazide lorothiazi Group 12.5 mg 12.5 mg de 12.5 mg tablet TAKE tablet TAKE tablet 1 TABLET BY 1 TABLET BY TAKE 1 MOUTH 1 MOUTH 1 TABLET BY TIME EACH TIME EACH MOUTH 1 DAY DAY TIME EACH DAY rosuvastati rosuvastati No rosuvastat [place] n 5 mg n 5 mg in 5 mg da tablet TAKE tablet TAKE tablet Medical ONE (1) ONE (1) TAKE ONE Group TABLET(S) TABLET(S) (1) BY MOUTH BY MOUTH TABLET(S) ONCE A DAY. ONCE A DAY. BY MOUTH ONCE A DAY. Tradjenta 5 Tradjenta 5 No Tradjenta [place] mg tablet mg tablet 5 mg da tablet Medical Group tramadol 50 tramadol 50 No tramadol [place] mg tablet mg tablet 50 mg da TAKE 1 TAKE 1 tablet Medical TABLET BY TABLET BY TAKE 1 Yas up MOUTH EVERY MOUTH EVERY TABLET BY 6 HOURS FOR 6 HOURS FOR MOUTH 7 DAYS 7 DAYS EVERY 6 NEEDED NEEDED HOURS FOR 7 DAYS NEEDED Vitamin Vitamin No Vitamin B-12 B-12 B-12 Probiotic Probiotic No Probiotic Turmeric Turmeric No Turmeric FreeStyle FreeStyle No FreeStyle Denisha 2 Denisha 2 Denisha 2 Sensor - Sensor - Sensor - Lisinopril- Lisinopril- No Lisinopril hydroCHLORO hydroCHLORO -hydroCHLO thiazide thiazide ROthiazide 20-12.5 MG 20-12.5 MG 20-12.5 MG Zinc Zinc No Zinc HumaLOG HumaLOG No HumaLOG KwikPen 100 KwikPen 100 KwikPen UNIT/ML UNIT/ML 100 UNIT/ML Vitamin E Vitamin E No Vitamin E Rosuvastati Rosuvastati No Rosuvastat n Calcium 5 n Calcium 5 in Calcium MG MG 5 MG Rosuvastati Rosuvastati No Rosuvastat n Calcium 5 n Calcium 5 in Calcium MG MG 5 MG Vitamin D Vitamin D No Vitamin D Lantus Lantus No QD Lantus SoloStar SoloStar SoloStar 100 UNIT/ML 100 UNIT/ML 100 UNIT/ML Lisinopril- Lisinopril- No 1{table QD Lisinopril hydroCHLORO hydroCHLORO t} -hydroCHLO thiazide thiazide ROthiazide 20-12.5 MG 20-12.5 MG 20-12.5 MG Aspirin Aspirin No 1{table QD Aspirin Adult Low Adult Low t} Adult Low Dose 81 MG Dose 81 MG Dose 81 MG FreeStyle FreeStyle No FreeStyle Denisha 2 Denisha 2 [place]isha 2 [place] - glipiZIDE glipiZIDE No 1{table QD glipiZIDE ER 10 MG ER 10 MG t_with_ ER [address]} CoQ-10 CoQ-10 No CoQ-10 Collagen Collagen No Collagen Vitamin Vitamin No Vitamin B-12 B-12 B-12 Probiotic Probiotic No Probiotic Turmeric Turmeric No Turmeric FreeStyle FreeStyle No FreeStyle Denisha 2 Denisha 2 Denisha 2 Sensor - Sensor - Sensor - Lisinopril- Lisinopril- No Lisinopril hydroCHLORO hydroCHLORO -hydroCHLO thiazide thiazide ROthiazide 20-12.5 MG 20-12.5 MG 20-12.5 MG Zinc Zinc No Zinc HumaLOG HumaLOG No HumaLOG KwikPen 100 KwikPen 100 KwikPen UNIT/ML UNIT/ML 100 UNIT/ML Vitamin E Vitamin E No Vitamin E Rosuvastati Rosuvastati No Rosuvastat n Calcium 5 n Calcium 5 in Calcium MG MG 5 MG Rosuvastati Rosuvastati No Rosuvastat n Calcium 5 n Calcium 5 in Calcium MG MG 5 MG Vitamin D Vitamin D No Vitamin D Lantus Lantus No QD Lantus SoloStar SoloStar SoloStar 100 UNIT/ML 100 UNIT/ML 100 UNIT/ML Lisinopril- Lisinopril- No 1{table QD Lisinopril hydroCHLORO hydroCHLORO t} -hydroCHLO thiazide thiazide ROthiazide 20-12.5 MG 20-12.5 MG 20-12.5 MG Aspirin Aspirin No 1{table QD Aspirin Adult Low Adult Low t} Adult Low Dose 81 MG Dose 81 MG Dose 81 MG FreeStyle FreeStyle No FreeStyle Denisha 2 Denisha 2 Denisha 2 [place] - glipiZIDE glipiZIDE No 1{table QD glipiZIDE ER 10 MG ER 10 MG t_with_ ER [address]} CoQ-10 CoQ-10 No CoQ-10 Collagen Collagen No Collagen Vitamin Vitamin No Vitamin B-12 B-12 B-12 Probiotic Probiotic No Probiotic Turmeric Turmeric No Turmeric FreeStyle FreeStyle No FreeStyle Denisha 2 Denisha 2 Denisha 2 Sensor - Sensor - Sensor - Lisinopril- Lisinopril- No Lisinopril hydroCHLORO hydroCHLORO -hydroCHLO thiazide thiazide ROthiazide 20-12.5 MG 20-12.5 MG 20-12.5 MG Zinc Zinc No Zinc HumaLOG HumaLOG No HumaLOG KwikPen 100 KwikPen 100 KwikPen UNIT/ML UNIT/ML 100 UNIT/ML Vitamin E Vitamin E No Vitamin E Rosuvastati Rosuvastati No Rosuvastat n Calcium 5 n Calcium 5 in Calcium MG MG 5 MG Rosuvastati Rosuvastati No Rosuvastat n Calcium 5 n Calcium 5 in Calcium MG MG 5 MG Vitamin D Vitamin D No Vitamin D Lantus Lantus No QD Lantus SoloStar SoloStar SoloStar 100 UNIT/ML 100 UNIT/ML 100 UNIT/ML Lisinopril- Lisinopril- No 1{table QD Lisinopril hydroCHLORO hydroCHLORO t} -hydroCHLO thiazide thiazide ROthiazide 20-12.5 MG 20-12.5 MG 20-12.5 MG Aspirin Aspirin No 1{table QD Aspirin Adult Low Adult Low t} Adult Low Dose 81 MG Dose 81 MG Dose 81 MG FreeStyle FreeStyle No FreeStyle Denisha 2 Denisha 2 [place] 2 [place] - glipiZIDE glipiZIDE No 1{table QD glipiZIDE ER 10 MG ER 10 MG t_with_ ER [address]} CoQ-10 CoQ-10 No CoQ-10 Collagen Collagen No Collagen Vitamin Vitamin No Vitamin B-12 B-12 B-12 Probiotic Probiotic No Probiotic Zinc Zinc No Zinc FreeStyle FreeStyle No FreeStyle Denisha 2 Denisha 2 Denisha 2 Sensor - Sensor - Sensor - Turmeric Turmeric No Turmeric Vitamin E Vitamin E No Vitamin E glipiZIDE glipiZIDE No 1{table QD glipiZIDE ER 10 MG ER 10 MG t_with_ ER [address]} HumaLOG HumaLOG No HumaLOG KwikPen 100 KwikPen 100 KwikPen UNIT/ML UNIT/ML 100 UNIT/ML Rosuvastati Rosuvastati No Rosuvastat n Calcium 5 n Calcium 5 in Calcium MG MG 5 MG Vitamin D Vitamin D No Vitamin D Lantus Lantus No QD Lantus SoloStar SoloStar SoloStar 100 UNIT/ML 100 UNIT/ML 100 UNIT/ML Lisinopril- Lisinopril- No 1{table QD Lisinopril hydroCHLORO hydroCHLORO t} -hydroCHLO thiazide thiazide ROthiazide 20-12.5 MG 20-12.5 MG 20-12.5 MG Aspirin Aspirin No 1{table QD Aspirin Adult Low Adult Low t} Adult Low Dose 81 MG Dose 81 MG Dose 81 MG FreeStyle FreeStyle No FreeStyle Denisha 2 Denisha 2 [place] 2 [place] - Rosuvastati Rosuvastati No Rosuvastat n Calcium 5 n Calcium 5 in Calcium MG MG 5 MG CoQ-10 CoQ-10 No CoQ-10 Collagen Collagen No Collagen metFORMIN metFORMIN No metFORMIN HCl ER 500 HCl ER 500 HCl ER 500 MG MG MG metFORMIN metFORMIN No BID metFORMIN HCl ER 500 HCl ER 500 HCl ER 500 MG MG MG Azithromyci Azithromyci No QD Azithromyc n 250 MG n 250 MG in 250 MG Benzonatate Benzonatate No 1{capsu TID Benzonatat 200 MG 200 MG le_as_n e 200 MG eeded} Lantus Lantus No QD Lantus SoloStar SoloStar SoloStar 100 UNIT/ML 100 UNIT/ML 100 UNIT/ML Methocarbam Methocarbam No 1{table Methocarba ol 500 MG ol 500 MG t} mol 500 MG Rosuvastati Rosuvastati No Rosuvastat n Calcium 5 n Calcium 5 in Calcium MG MG 5 MG Aspirin Aspirin No 1{table QD Aspirin Adult Low Adult Low t} Adult Low Dose 81 MG Dose 81 MG Dose 81 MG BD Pen BD Pen No BD Pen Needle [place] Needle [place] Needle 2nd Gen 32G 2nd Gen 32G [place] 2nd X 4 MM X 4 MM Gen 32G X 4 MM Lisinopril- Lisinopril- No 1{table QD Lisinopril hydroCHLORO hydroCHLORO t} -hydroCHLO thiazide thiazide ROthiazide 20-12.5 MG 20-12.5 MG 20-12.5 MG Cetirizine Cetirizine No 1{table QD Cetirizine HCl 10 MG HCl 10 MG t} HCl 10 MG Glimepiride Glimepiride No BID Glimepirid 4 MG 4 MG e 4 MG Humalog Pen Humalog Pen No Humalog Pen Farxiga Farxiga No 1{table QD Farxiga 10mg 10mg t} 10mg HumaLOG HumaLOG No HumaLOG KwikPen 100 KwikPen 100 KwikPen UNIT/ML UNIT/ML 100 UNIT/ML Albuterol Albuterol No 2{puffs Albuterol Sulfate HFA Sulfate HFA } Sulfate 108 (90 108 (90 HFA 108 Base) Base) (90 Base) MCG/ACT MCG/ACT MCG/ACT Januvia 100 Januvia 100 No 1{table QD Januvia MG MG t} 100 MG metFORMIN metFORMIN No metFORMIN HCl ER 500 HCl ER 500 HCl ER 500 MG MG MG metFORMIN metFORMIN No BID metFORMIN HCl ER 500 HCl ER 500 HCl ER 500 MG MG MG Azithromyci Azithromyci No QD Azithromyc n 250 MG n 250 MG in 250 MG Humalog Pen Humalog Pen No Humalog Pen Rosuvastati Rosuvastati No Rosuvastat n Calcium 5 n Calcium 5 in Calcium MG MG 5 MG Benzonatate Benzonatate No 1{capsu TID Benzonatat 200 MG 200 MG le_as_n e 200 MG eeded} Lantus Lantus No QD Lantus SoloStar SoloStar SoloStar 100 UNIT/ML 100 UNIT/ML 100 UNIT/ML Methocarbam Methocarbam No 1{table Methocarba ol 500 MG ol 500 MG t} mol 500 MG Aspirin Aspirin No 1{table QD Aspirin Adult Low Adult Low t} Adult Low Dose 81 MG Dose 81 MG Dose 81 MG BD Pen BD Pen No BD Pen Needle [place] Needle [place] Needle 2nd Gen 32G 2nd Gen 32G [place] 2nd X 4 MM X 4 MM Gen 32G X 4 MM Farxiga Farxiga No 1{table QD Farxiga 10mg 10mg t} 10mg Cetirizine Cetirizine No 1{table QD Cetirizine HCl 10 MG HCl 10 MG t} HCl 10 MG Glimepiride Glimepiride No BID Glimepirid 4 MG 4 MG e 4 MG Lisinopril- Lisinopril- No 1{table QD Lisinopril hydroCHLORO hydroCHLORO t} -hydroCHLO thiazide thiazide ROthiazide 20-12.5 MG 20-12.5 MG 20-12.5 MG HumaLOG HumaLOG No HumaLOG KwikPen 100 KwikPen 100 KwikPen UNIT/ML UNIT/ML 100 UNIT/ML Albuterol Albuterol No 2{puffs Albuterol Sulfate HFA Sulfate HFA } Sulfate 108 (90 108 (90 HFA 108 Base) Base) (90 Base) MCG/ACT MCG/ACT MCG/ACT Januvia 100 Januvia 100 No 1{table QD Januvia MG MG t} 100 MG BD Pen BD Pen No BD Pen Needle [place] Needle [place] Needle 2nd Gen 32G 2nd Gen 32G [place] 2nd X 4 MM X 4 MM Gen 32G X 4 MM metFORMIN metFORMIN No metFORMIN HCl ER 500 HCl ER 500 HCl ER 500 MG MG MG Methocarbam Methocarbam No 1{table Methocarba ol 500 MG ol 500 MG t} mol 500 MG Benzonatate Benzonatate No 1{capsu TID Benzonatat 200 MG 200 MG le_as_n e 200 MG eeded} Azithromyci Azithromyci No QD Azithromyc n 250 MG n 250 MG in 250 MG Lantus Lantus No QD Lantus SoloStar SoloStar SoloStar 100 UNIT/ML 100 UNIT/ML 100 UNIT/ML Farxiga Farxiga No 1{table QD Farxiga 10mg 10mg t} 10mg Cetirizine Cetirizine No 1{table QD Cetirizine HCl 10 MG HCl 10 MG t} HCl 10 MG metFORMIN metFORMIN No BID metFORMIN HCl ER 500 HCl ER 500 HCl ER 500 MG MG MG Aspirin Aspirin No 1{table QD Aspirin Adult Low Adult Low t} Adult Low Dose 81 MG Dose 81 MG Dose 81 MG Januvia 100 Januvia 100 No 1{table QD Januvia MG MG t} 100 MG Lisinopril- Lisinopril- No 1{table QD Lisinopril hydroCHLORO hydroCHLORO t} -hydroCHLO thiazide thiazide ROthiazide 20-12.5 MG 20-12.5 MG 20-12.5 MG Glimepiride Glimepiride No BID Glimepirid 4 MG 4 MG e 4 MG Rosuvastati Rosuvastati No Rosuvastat n Calcium 5 n Calcium 5 in Calcium MG MG 5 MG HumaLOG HumaLOG No HumaLOG KwikPen 100 KwikPen 100 KwikPen UNIT/ML UNIT/ML 100 UNIT/ML Albuterol Albuterol No 2{puffs Albuterol Sulfate HFA Sulfate HFA } Sulfate 108 (90 108 (90 HFA 108 Base) Base) (90 Base) MCG/ACT MCG/ACT MCG/ACT Humalog Pen Humalog Pen No Humalog Pen BD Pen BD Pen No Needle [place] Needle [place] 2nd Gen 32G 2nd Gen 32G X 4 MM X 4 MM metFORMIN metFORMIN No HCl ER 500 HCl ER 500 MG MG Methocarbam Methocarbam No 1{table ol 500 MG ol 500 MG t} Benzonatate Benzonatate No 1{capsu TID 200 MG 200 MG le_as_n eeded} Azithromyci Azithromyci No QD n 250 MG n 250 MG Lantus Lantus No QD SoloStar SoloStar 100 UNIT/ML 100 UNIT/ML Farxiga Farxiga No 1{table QD 10mg 10mg t} Cetirizine Cetirizine No 1{table QD HCl 10 MG HCl 10 MG t} metFORMIN metFORMIN No BID HCl ER 500 HCl ER 500 MG MG Aspirin Aspirin No 1{table QD Adult Low Adult Low t} Dose 81 MG Dose 81 MG Januvia 100 Januvia 100 No 1{table QD MG MG t} Lisinopril- Lisinopril- No 1{table QD hydroCHLORO hydroCHLORO t} thiazide thiazide 20-12.5 MG 20-12.5 MG Glimepiride Glimepiride No BID 4 MG 4 MG Rosuvastati Rosuvastati No n Calcium 5 n Calcium 5 MG MG HumaLOG HumaLOG No KwikPen 100 KwikPen 100 UNIT/ML UNIT/ML Albuterol Albuterol No 2{puffs Sulfate HFA Sulfate HFA } 108 (90 108 (90 Base) Base) MCG/ACT MCG/ACT Humalog Pen Humalog Pen No metFORMIN metFORMIN No metFORMIN HCl ER 500 HCl ER 500 HCl ER 500 MG MG MG Humalog Pen Humalog Pen No Humalog Pen Albuterol Albuterol No 2{puffs Albuterol Sulfate HFA Sulfate HFA } Sulfate 108 (90 108 (90 HFA 108 Base) Base) (90 Base) MCG/ACT MCG/ACT MCG/ACT Azithromyci Azithromyci No QD Azithromyc n 250 MG n 250 MG in 250 MG Lisinopril- Lisinopril- No 1{table QD Lisinopril hydroCHLORO hydroCHLORO t} -hydroCHLO thiazide thiazide ROthiazide 20-12.5 MG 20-12.5 MG 20-12.5 MG Lantus Lantus No QD Lantus SoloStar SoloStar SoloStar 100 UNIT/ML 100 UNIT/ML 100 UNIT/ML HumaLOG HumaLOG No HumaLOG KwikPen 100 KwikPen 100 KwikPen UNIT/ML UNIT/ML 100 UNIT/ML FreeStyle FreeStyle No FreeStyle Denisha 2 [place] 2 [place] 2 [place] - Farxiga Farxiga No 1{table QD Farxiga 10mg 10mg t} 10mg Januvia 100 Januvia 100 No 1{table QD Januvia MG MG t} 100 MG FreeStyle FreeStyle No FreeStyle Denisha 2 Denisha 2 Denisha 2 Sensor - Sensor - Sensor - Glimepiride Glimepiride No BID Glimepirid 4 MG 4 MG e 4 MG BD Pen BD Pen No BD Pen Needle [place] Needle [place] Needle 2nd Gen 32G 2nd Gen 32G [place] 2nd X 4 MM X 4 MM Gen 32G X 4 MM Cetirizine Cetirizine No 1{table QD Cetirizine HCl 10 MG HCl 10 MG t} HCl 10 MG Aspirin Aspirin No 1{table QD Aspirin Adult Low Adult Low t} Adult Low Dose 81 MG Dose 81 MG Dose 81 MG Rosuvastati Rosuvastati No Rosuvastat n Calcium 5 n Calcium 5 in Calcium MG MG 5 MG metFORMIN metFORMIN No BID metFORMIN HCl ER 500 HCl ER 500 HCl ER 500 MG MG MG Benzonatate Benzonatate No 1{capsu TID Benzonatat 200 MG 200 MG le_as_n e 200 MG eeded} Methocarbam Methocarbam No 1{table Methocarba ol 500 MG ol 500 MG t} mol 500 MG metFORMIN metFORMIN No metFORMIN HCl ER 500 HCl ER 500 HCl ER 500 MG MG MG Humalog Pen Humalog Pen No Humalog Pen FreeStyle FreeStyle No FreeStyle Denisha 2 [place]isha 2 [place] 2 [place] - Benzonatate Benzonatate No 1{capsu TID Benzonatat 200 MG 200 MG le_as_n e 200 MG eeded} Lisinopril- Lisinopril- No 1{table QD Lisinopril hydroCHLORO hydroCHLORO t} -hydroCHLO thiazide thiazide ROthiazide 20-12.5 MG 20-12.5 MG 20-12.5 MG HumaLOG HumaLOG No HumaLOG KwikPen 100 KwikPen 100 KwikPen UNIT/ML UNIT/ML 100 UNIT/ML Azithromyci Azithromyci No QD Azithromyc n 250 MG n 250 MG in 250 MG Lantus Lantus No QD Lantus SoloStar SoloStar SoloStar 100 UNIT/ML 100 UNIT/ML 100 UNIT/ML Farxiga Farxiga No 1{table QD Farxiga 10mg 10mg t} 10mg Januvia 100 Januvia 100 No 1{table QD Januvia MG MG t} 100 MG Cetirizine Cetirizine No 1{table QD Cetirizine HCl 10 MG HCl 10 MG t} HCl 10 MG Glimepiride Glimepiride No BID Glimepirid 4 MG 4 MG e 4 MG BD Pen BD Pen No BD Pen Needle [place] Needle [place] Needle 2nd Gen 32G 2nd Gen 32G [place] 2nd X 4 MM X 4 MM Gen 32G X 4 MM Albuterol Albuterol No 2{puffs Albuterol Sulfate HFA Sulfate HFA } Sulfate 108 (90 108 (90 HFA 108 Base) Base) (90 Base) MCG/ACT MCG/ACT MCG/ACT Aspirin Aspirin No 1{table QD Aspirin Adult Low Adult Low t} Adult Low Dose 81 MG Dose 81 MG Dose 81 MG Rosuvastati Rosuvastati No Rosuvastat n Calcium 5 n Calcium 5 in Calcium MG MG 5 MG metFORMIN metFORMIN No BID metFORMIN HCl ER 500 HCl ER 500 HCl ER 500 MG MG MG FreeStyle FreeStyle No FreeStyle Denisha 2 Denisha 2 Denisha 2 Sensor - Sensor - Sensor - Methocarbam Methocarbam No 1{table Methocarba ol 500 MG ol 500 MG t} mol 500 MG Rosuvastati Rosuvastati No Rosuvastat n Calcium 5 n Calcium 5 in Calcium MG MG 5 MG Aspirin Aspirin No 1{table QD Aspirin Adult Low Adult Low t} Adult Low Dose 81 MG Dose 81 MG Dose 81 MG FreeStyle FreeStyle No FreeStyle Denisha 2 Denisha 2 [place] 2 [place] - HumaLOG HumaLOG No HumaLOG KwikPen 100 KwikPen 100 KwikPen UNIT/ML UNIT/ML 100 UNIT/ML Benzonatate Benzonatate No 1{capsu TID Benzonatat 200 MG 200 MG le_as_n e 200 MG eeded} Lantus Lantus No QD Lantus SoloStar SoloStar SoloStar 100 UNIT/ML 100 UNIT/ML 100 UNIT/ML Albuterol Albuterol No 2{puffs Albuterol Sulfate HFA Sulfate HFA } Sulfate 108 (90 108 (90 HFA 108 Base) Base) (90 Base) MCG/ACT MCG/ACT MCG/ACT Azithromyci Azithromyci No QD Azithromyc n 250 MG n 250 MG in 250 MG Cetirizine Cetirizine No 1{table QD Cetirizine HCl 10 MG HCl 10 MG t} HCl 10 MG metFORMIN metFORMIN No metFORMIN HCl ER 500 HCl ER 500 HCl ER 500 MG MG MG Lisinopril- Lisinopril- No Lisinopril hydroCHLORO hydroCHLORO -hydroCHLO thiazide thiazide ROthiazide 20-12.5 MG 20-12.5 MG 20-12.5 MG Methocarbam Methocarbam No 1{table Methocarba ol 500 MG ol 500 MG t} mol 500 MG Lisinopril- Lisinopril- No 1{table QD Lisinopril hydroCHLORO hydroCHLORO t} -hydroCHLO thiazide thiazide ROthiazide 20-12.5 MG 20-12.5 MG 20-12.5 MG BD Pen BD Pen No BD Pen Needle [place] Needle [place] Needle 2nd Gen 32G 2nd Gen 32G [place] 2nd X 4 MM X 4 MM Gen 32G X 4 MM Glimepiride Glimepiride No BID Glimepirid 4 MG 4 MG e 4 MG Januvia 100 Januvia 100 No 1{table QD Januvia MG MG t} 100 MG FreeStyle FreeStyle No FreeStyle Denisha 2 Denisha 2 Denisha 2 Sensor - Sensor - Sensor - Farxiga Farxiga No 1{table QD Farxiga 10mg 10mg t} 10mg Humalog Pen Humalog Pen No Humalog Pen Rosuvastati Rosuvastati No Rosuvastat n Calcium 5 n Calcium 5 in Calcium MG MG 5 MG Rosuvastati Rosuvastati No Rosuvastat n Calcium 5 n Calcium 5 in Calcium MG MG 5 MG Aspirin Aspirin No 1{table QD Aspirin Adult Low Adult Low t} Adult Low Dose 81 MG Dose 81 MG Dose 81 MG FreeStyle FreeStyle No FreeStyle Denisha 2 Denisha 2 [place] 2 [place] - HumaLOG HumaLOG No HumaLOG KwikPen 100 KwikPen 100 KwikPen UNIT/ML UNIT/ML 100 UNIT/ML Benzonatate Benzonatate No 1{capsu TID Benzonatat 200 MG 200 MG le_as_n e 200 MG eeded} Lantus Lantus No QD Lantus SoloStar SoloStar SoloStar 100 UNIT/ML 100 UNIT/ML 100 UNIT/ML Albuterol Albuterol No 2{puffs Albuterol Sulfate HFA Sulfate HFA } Sulfate 108 (90 108 (90 HFA 108 Base) Base) (90 Base) MCG/ACT MCG/ACT MCG/ACT Azithromyci Azithromyci No QD Azithromyc n 250 MG n 250 MG in 250 MG Cetirizine Cetirizine No 1{table QD Cetirizine HCl 10 MG HCl 10 MG t} HCl 10 MG metFORMIN metFORMIN No metFORMIN HCl ER 500 HCl ER 500 HCl ER 500 MG MG MG Lisinopril- Lisinopril- No Lisinopril hydroCHLORO hydroCHLORO -hydroCHLO thiazide thiazide ROthiazide 20-12.5 MG 20-12.5 MG 20-12.5 MG Methocarbam Methocarbam No 1{table Methocarba ol 500 MG ol 500 MG t} mol 500 MG Lisinopril- Lisinopril- No 1{table QD Lisinopril hydroCHLORO hydroCHLORO t} -hydroCHLO thiazide thiazide ROthiazide 20-12.5 MG 20-12.5 MG 20-12.5 MG BD Pen BD Pen No BD Pen Needle [place] Needle Layne Needle 2nd Gen 32G 2nd Gen 32G [place] 2nd X 4 MM X 4 MM Gen 32G X 4 MM Glimepiride Glimepiride No BID Glimepirid 4 MG 4 MG e 4 MG Januvia 100 Januvia 100 No 1{table QD Januvia MG MG t} 100 MG FreeStyle FreeStyle No FreeStyle Denisha 2 Denisha 2 Denisha 2 Sensor - Sensor - Sensor - Farxiga Farxiga No 1{table QD Farxiga 10mg 10mg t} 10mg Humalog Pen Humalog Pen No Humalog Pen Rosuvastati Rosuvastati No Rosuvastat n Calcium 5 n Calcium 5 in Calcium MG MG 5 MG Benzonatate Benzonatate No 1{capsu TID 200 MG 200 MG le_as_n eeded} Albuterol Albuterol No 2{puffs Sulfate HFA Sulfate HFA } 108 (90 108 (90 Base) Base) MCG/ACT MCG/ACT Lantus Lantus No QD SoloStar SoloStar 100 UNIT/ML 100 UNIT/ML Azithromyci Azithromyci No QD n 250 MG n 250 MG Rosuvastati Rosuvastati No n Calcium 5 n Calcium 5 MG MG Cetirizine Cetirizine No 1{table QD HCl 10 MG HCl 10 MG t} metFORMIN metFORMIN No HCl ER 500 HCl ER 500 MG MG BD Pen BD Pen No Needle [place] Needle [place] 2nd Gen 32G 2nd Gen 32G X 4 MM X 4 MM Methocarbam Methocarbam No 1{table ol 500 MG ol 500 MG t} FreeStyle FreeStyle No Denisha 2 Denisha 2 Sensor - Sensor - Humalog Pen Humalog Pen No Aspirin Aspirin No 1{table QD Adult Low Adult Low t} Dose 81 MG Dose 81 MG Lisinopril- Lisinopril- No 1{table QD hydroCHLORO hydroCHLORO t} thiazide thiazide 20-12.5 MG 20-12.5 MG Januvia 100 Januvia 100 No 1{table QD MG MG t} FreeStyle FreeStyle No Denisha 2 [place] 2 [place] - [facility] No 1{table QD 10mg 10mg t} Glimepiride Glimepiride No BID 4 MG 4 MG Rosuvastati Rosuvastati No n Calcium 5 n Calcium 5 MG MG HumaLOG HumaLOG No KwikPen 100 KwikPen 100 UNIT/ML UNIT/ML Lisinopril- Lisinopril- No hydroCHLORO hydroCHLORO thiazide thiazide 20-12.5 MG 20-12.5 MG Benzonatate Benzonatate No 1{capsu TID Benzonatat 200 MG 200 MG le_as_n e 200 MG eeded} Albuterol Albuterol No 2{puffs Albuterol Sulfate HFA Sulfate HFA } Sulfate 108 (90 108 (90 HFA 108 Base) Base) (90 Base) MCG/ACT MCG/ACT MCG/ACT Lantus Lantus No QD Lantus SoloStar SoloStar SoloStar 100 UNIT/ML 100 UNIT/ML 100 UNIT/ML Azithromyci Azithromyci No QD Azithromyc n 250 MG n 250 MG in 250 MG Rosuvastati Rosuvastati No Rosuvastat n Calcium 5 n Calcium 5 in Calcium MG MG 5 MG Cetirizine Cetirizine No 1{table QD Cetirizine HCl 10 MG HCl 10 MG t} HCl 10 MG metFORMIN metFORMIN No metFORMIN HCl ER 500 HCl ER 500 HCl ER 500 MG MG MG BD Pen BD Pen No BD Pen Needle [place] Needle [place] Needle 2nd Gen 32G 2nd Gen 32G [place] 2nd X 4 MM X 4 MM Gen 32G X 4 MM Methocarbam Methocarbam No 1{table Methocarba ol 500 MG ol 500 MG t} mol 500 MG FreeStyle FreeStyle No FreeStyle Denisha 2 Denisha 2 Denisha 2 Sensor - Sensor - Sensor - Humalog Pen Humalog Pen No Humalog Pen Aspirin Aspirin No 1{table QD Aspirin Adult Low Adult Low t} Adult Low Dose 81 MG Dose 81 MG Dose 81 MG Lisinopril- Lisinopril- No 1{table QD Lisinopril hydroCHLORO hydroCHLORO t} -hydroCHLO thiazide thiazide ROthiazide 20-12.5 MG 20-12.5 MG 20-12.5 MG Januvia 100 Januvia 100 No 1{table QD Januvia MG MG t} 100 MG FreeStyle FreeStyle No FreeStyle Denisha 2 Denisha 2 [place] 2 [place] - Farxiga Farxiga No 1{table QD Farxiga 10mg 10mg t} 10mg Glimepiride Glimepiride No BID Glimepirid 4 MG 4 MG e 4 MG Rosuvastati Rosuvastati No Rosuvastat n Calcium 5 n Calcium 5 in Calcium MG MG 5 MG HumaLOG HumaLOG No HumaLOG KwikPen 100 KwikPen 100 KwikPen UNIT/ML UNIT/ML 100 UNIT/ML Lisinopril- Lisinopril- No Lisinopril hydroCHLORO hydroCHLORO -hydroCHLO thiazide thiazide ROthiazide 20-12.5 MG 20-12.5 MG 20-12.5 MG Benzonatate Benzonatate No 1{capsu TID Benzonatat 200 MG 200 MG le_as_n e 200 MG eeded} Albuterol Albuterol No 2{puffs Albuterol Sulfate HFA Sulfate HFA } Sulfate 108 (90 108 (90 HFA 108 Base) Base) (90 Base) MCG/ACT MCG/ACT MCG/ACT Lantus Lantus No QD Lantus SoloStar SoloStar SoloStar 100 UNIT/ML 100 UNIT/ML 100 UNIT/ML Azithromyci Azithromyci No QD Azithromyc n 250 MG n 250 MG in 250 MG Rosuvastati Rosuvastati No Rosuvastat n Calcium 5 n Calcium 5 in Calcium MG MG 5 MG Cetirizine Cetirizine No 1{table QD Cetirizine HCl 10 MG HCl 10 MG t} HCl 10 MG metFORMIN metFORMIN No metFORMIN HCl ER 500 HCl ER 500 HCl ER 500 MG MG MG BD Pen BD Pen No BD Pen Needle [place] Needle [place] Needle 2nd Gen 32G 2nd Gen 32G [place] 2nd X 4 MM X 4 MM Gen 32G X 4 MM Methocarbam Methocarbam No 1{table Methocarba ol 500 MG ol 500 MG t} mol 500 MG FreeStyle FreeStyle No FreeStyle Denisha 2 Denisha 2 Denisha 2 Sensor - Sensor - Sensor - Humalog Pen Humalog Pen No Humalog Pen Aspirin Aspirin No 1{table QD Aspirin Adult Low Adult Low t} Adult Low Dose 81 MG Dose 81 MG Dose 81 MG Lisinopril- Lisinopril- No 1{table QD Lisinopril hydroCHLORO hydroCHLORO t} -hydroCHLO thiazide thiazide ROthiazide 20-12.5 MG 20-12.5 MG 20-12.5 MG Januvia 100 Januvia 100 No 1{table QD Januvia MG MG t} 100 MG FreeStyle FreeStyle No FreeStyle Denisha 2 Denisha 2 [place] 2 [place] - Farxiga Farxiga No 1{table QD Farxiga 10mg 10mg t} 10mg Glimepiride Glimepiride No BID Glimepirid 4 MG 4 MG e 4 MG Rosuvastati Rosuvastati No Rosuvastat n Calcium 5 n Calcium 5 in Calcium MG MG 5 MG HumaLOG HumaLOG No HumaLOG KwikPen 100 KwikPen 100 KwikPen UNIT/ML UNIT/ML 100 UNIT/ML Lisinopril- Lisinopril- No Lisinopril hydroCHLORO hydroCHLORO -hydroCHLO thiazide thiazide ROthiazide 20-12.5 MG 20-12.5 MG 20-12.5 MG CoQ-10 CoQ-10 No CoQ-10 Rosuvastati Rosuvastati No Rosuvastat n Calcium 5 n Calcium 5 in Calcium MG MG 5 MG Lantus Lantus No QD Lantus SoloStar SoloStar SoloStar 100 UNIT/ML 100 UNIT/ML 100 UNIT/ML HumaLOG HumaLOG No HumaLOG KwikPen 100 KwikPen 100 KwikPen UNIT/ML UNIT/ML 100 UNIT/ML Aspirin Aspirin No 1{table QD Aspirin Adult Low Adult Low t} Adult Low Dose 81 MG Dose 81 MG Dose 81 MG Vitamin D Vitamin D No Vitamin D glipiZIDE glipiZIDE No 1{table QD glipiZIDE ER 10 MG ER 10 MG t_with_ ER [address]} Turmeric Turmeric No Turmeric FreeStyle FreeStyle No FreeStyle Denisha 2 Denisha 2 [place] 2 [place] - Probiotic Probiotic No Probiotic Lisinopril- Lisinopril- No 1{table QD Lisinopril hydroCHLORO hydroCHLORO t} -hydroCHLO thiazide thiazide ROthiazide 20-12.5 MG 20-12.5 MG 20-12.5 MG FreeStyle FreeStyle No FreeStyle Denisha 2 Denisha 2 Denisha 2 Sensor - Sensor - Sensor - Rosuvastati Rosuvastati No Rosuvastat n Calcium 5 n Calcium 5 in Calcium MG MG 5 MG Vitamin E Vitamin E No Vitamin E Rosuvastati Rosuvastati No Rosuvastat n Calcium 5 n Calcium 5 in Calcium MG MG 5 MG Lantus Lantus No QD Lantus SoloStar SoloStar SoloStar 100 UNIT/ML 100 UNIT/ML 100 UNIT/ML HumaLOG HumaLOG No HumaLOG KwikPen 100 KwikPen 100 KwikPen UNIT/ML UNIT/ML 100 UNIT/ML Aspirin Aspirin No 1{table QD Aspirin Adult Low Adult Low t} Adult Low Dose 81 MG Dose 81 MG Dose 81 MG Vitamin D Vitamin D No Vitamin D CoQ-10 CoQ-10 No CoQ-10 Turmeric Turmeric No Turmeric FreeStyle FreeStyle No FreeStyle Denisha 2 Denisha 2 [place] 2 [place] - Probiotic Probiotic No Probiotic Lisinopril- Lisinopril- No 1{table QD Lisinopril hydroCHLORO hydroCHLORO t} -hydroCHLO thiazide thiazide ROthiazide 20-12.5 MG 20-12.5 MG 20-12.5 MG FreeStyle FreeStyle No FreeStyle Denisha 2 Denisha 2 Denisha 2 Sensor - Sensor - Sensor - Rosuvastati Rosuvastati No Rosuvastat n Calcium 5 n Calcium 5 in Calcium MG MG 5 MG Vitamin E Vitamin E No Vitamin E Lisinopril- Lisinopril- No Lisinopril hydroCHLORO hydroCHLORO -hydroCHLO thiazide thiazide ROthiazide 20-12.5 MG 20-12.5 MG 20-12.5 MG Rosuvastati Rosuvastati No Rosuvastat n Calcium 5 n Calcium 5 in Calcium MG MG 5 MG Lantus Lantus No QD Lantus SoloStar SoloStar SoloStar 100 UNIT/ML 100 UNIT/ML 100 UNIT/ML HumaLOG HumaLOG No HumaLOG KwikPen 100 KwikPen 100 KwikPen UNIT/ML UNIT/ML 100 UNIT/ML Aspirin Aspirin No 1{table QD Aspirin Adult Low Adult Low t} Adult Low Dose 81 MG Dose 81 MG Dose 81 MG Vitamin D Vitamin D No Vitamin D CoQ-10 CoQ-10 No CoQ-10 Turmeric Turmeric No Turmeric Vitamin E Vitamin E No Vitamin E Probiotic Probiotic No Probiotic FreeStyle FreeStyle No FreeStyle Denisha 2 Denisha 2 [place] 2 [place] - [place] - FreeStyle FreeStyle No FreeStyle Denisha 2 Denisha 2 Denisha 2 Sensor - Sensor - Sensor - Rosuvastati Rosuvastati No Rosuvastat n Calcium 5 n Calcium 5 in Calcium MG MG 5 MG Lantus Lantus No QD Lantus SoloStar SoloStar SoloStar 100 UNIT/ML 100 UNIT/ML 100 UNIT/ML Vitamin Vitamin No Vitamin B-12 B-12 B-12 HumaLOG HumaLOG No HumaLOG KwikPen 100 KwikPen 100 KwikPen UNIT/ML UNIT/ML 100 UNIT/ML Lisinopril- Lisinopril- No Lisinopril hydroCHLORO hydroCHLORO -hydroCHLO thiazide thiazide ROthiazide 20-12.5 MG 20-12.5 MG 20-12.5 MG Turmeric Turmeric No Turmeric Rosuvastati Rosuvastati No Rosuvastat n Calcium 5 n Calcium 5 in Calcium MG MG 5 MG Probiotic Probiotic No Probiotic Rosuvastati Rosuvastati No Rosuvastat n Calcium 5 n Calcium 5 in Calcium MG MG 5 MG Aspirin Aspirin No 1{table QD Aspirin Adult Low Adult Low t} Adult Low Dose 81 MG Dose 81 MG Dose 81 MG Zinc Zinc No Zinc Vitamin E Vitamin E No Vitamin E CoQ-10 CoQ-10 No CoQ-10 Collagen Collagen No Collagen Vitamin D Vitamin D No Vitamin D FreeStyle FreeStyle No FreeStyle Denisha 2 Denisha 2 [place] 2 [place] - FreeStyle FreeStyle No FreeStyle Denisha 2 Denisha 2 Denisha 2 Sensor - Sensor - Sensor - Lantus Lantus No QD Lantus SoloStar SoloStar SoloStar 100 UNIT/ML 100 UNIT/ML 100 UNIT/ML Vitamin Vitamin No Vitamin B-12 B-12 B-12 HumaLOG HumaLOG No HumaLOG KwikPen 100 KwikPen 100 KwikPen UNIT/ML UNIT/ML 100 UNIT/ML Lisinopril- Lisinopril- No Lisinopril hydroCHLORO hydroCHLORO -hydroCHLO thiazide thiazide ROthiazide 20-12.5 MG 20-12.5 MG 20-12.5 MG Turmeric Turmeric No Turmeric Rosuvastati Rosuvastati No Rosuvastat n Calcium 5 n Calcium 5 in Calcium MG MG 5 MG Probiotic Probiotic No Probiotic Rosuvastati Rosuvastati No Rosuvastat n Calcium 5 n Calcium 5 in Calcium MG MG 5 MG Aspirin Aspirin No 1{table QD Aspirin Adult Low Adult Low t} Adult Low Dose 81 MG Dose 81 MG Dose 81 MG Zinc Zinc No Zinc Vitamin E Vitamin E No Vitamin E CoQ-10 CoQ-10 No CoQ-10 Collagen Collagen No Collagen Vitamin D Vitamin D No Vitamin D FreeStyle FreeStyle No FreeStyle Denisha 2 Denisha 2 Denisha 2 [place] - [place] - [place] - FreeStyle FreeStyle No FreeStyle Denisha 2 Denisha 2 Denisha 2 Sensor - Sensor - Sensor - Vitamin D Vitamin D No Vitamin D Lantus Lantus No QD Lantus SoloStar SoloStar SoloStar 100 UNIT/ML 100 UNIT/ML 100 UNIT/ML Lisinopril- Lisinopril- No Lisinopril hydroCHLORO hydroCHLORO -hydroCHLO thiazide thiazide ROthiazide 20-12.5 MG 20-12.5 MG 20-12.5 MG Vitamin E Vitamin E No Vitamin E Zinc Zinc No Zinc FreeStyle FreeStyle No FreeStyle Denisha 2 Denisha 2 Denisha 2 [place] - Rosuvastati Rosuvastati No Rosuvastat n Calcium 5 n Calcium 5 in Calcium MG MG 5 MG HumaLOG HumaLOG No HumaLOG KwikPen 100 KwikPen 100 KwikPen UNIT/ML UNIT/ML 100 UNIT/ML Turmeric Turmeric No Turmeric Collagen Collagen No Collagen Rosuvastati Rosuvastati No Rosuvastat n Calcium 5 n Calcium 5 in Calcium MG MG 5 MG Vitamin Vitamin No Vitamin B-12 B-12 B-12 Probiotic Probiotic No Probiotic Aspirin Aspirin No 1{table QD Aspirin Adult Low Adult Low t} Adult Low Dose 81 MG Dose 81 MG Dose 81 MG FreeStyle FreeStyle No FreeStyle Denisha 2 Denisha 2 Denisha 2 Sensor - Sensor - Sensor - CoQ-10 CoQ-10 No CoQ-10 Vitamin Vitamin No Vitamin B-12 B-12 B-12 Probiotic Probiotic No Probiotic FreeStyle FreeStyle No FreeStyle Denisha 2 Denisha 2 Denisha 2 Sensor - Sensor - Sensor - Alcohol Alcohol No Alcohol [place] r Prep Pads Prep Pads Prep Pads da USE USE USE Medical DIRECTED 5 DIRECTED 5 DIRECTED 5 Group TIMES A DAY TIMES A DAY TIMES A DAY Lisinopril- Lisinopril- No Lisinopril hydroCHLORO hydroCHLORO -hydroCHLO thiazide thiazide ROthiazide 20-12.5 MG 20-12.5 MG 20-12.5 MG Turmeric Turmeric No Turmeric HumaLOG HumaLOG No HumaLOG KwikPen 100 KwikPen 100 KwikPen UNIT/ML UNIT/ML 100 UNIT/ML Vitamin E Vitamin E No Vitamin E Rosuvastati Rosuvastati No Rosuvastat n Calcium 5 n Calcium 5 in Calcium MG MG 5 MG Rosuvastati Rosuvastati No Rosuvastat n Calcium 5 n Calcium 5 in Calcium MG MG 5 MG Vitamin D Vitamin D No Vitamin D Lantus Lantus No QD Lantus SoloStar SoloStar SoloStar 100 UNIT/ML 100 UNIT/ML 100 UNIT/ML Lisinopril- Lisinopril- No 1{table QD Lisinopril hydroCHLORO hydroCHLORO t} -hydroCHLO thiazide thiazide ROthiazide 20-12.5 MG 20-12.5 MG 20-12.5 MG Aspirin Aspirin No 1{table QD Aspirin Adult Low Adult Low t} Adult Low Dose 81 MG Dose 81 MG Dose 81 MG FreeStyle FreeStyle No FreeStyle Denisha 2 Denisha 2 Denisha 2 [place] - Zinc Zinc No Zinc glipiZIDE glipiZIDE No 1{table QD glipiZIDE ER 10 MG ER 10 MG t_with_ ER [address]} CoQ-10 CoQ-10 No CoQ-10 Collagen Collagen No Collagen Vitamin Vitamin No Vitamin B-12 B-12 B-12 Probiotic Probiotic No Probiotic Turmeric Turmeric No Turmeric FreeStyle FreeStyle No FreeStyle Denisha 2 Denisha 2 Denisha 2 Sensor - Sensor - Sensor - Lisinopril- Lisinopril- No Lisinopril hydroCHLORO hydroCHLORO -hydroCHLO thiazide thiazide ROthiazide 20-12.5 MG 20-12.5 MG 20-12.5 MG BD Layne 2nd BD Layne 2nd No BD Layne [place] Gen Pen Gen Pen 2nd Gen da Needle 32 Needle 32 Pen Needle Medical gauge x gauge x 32 gauge x Yas up " USE " USE " USE DIRECTED DIRECTED ONCE A DAY. ONCE A DAY. DIRECTED ONCE A DAY. Zinc Zinc No Zinc HumaLOG HumaLOG No HumaLOG KwikPen 100 KwikPen 100 KwikPen UNIT/ML UNIT/ML 100 UNIT/ML Vitamin E Vitamin E No Vitamin E Rosuvastati Rosuvastati No Rosuvastat n Calcium 5 n Calcium 5 in Calcium MG MG 5 MG Rosuvastati Rosuvastati No Rosuvastat n Calcium 5 n Calcium 5 in Calcium MG MG 5 MG Vitamin D Vitamin D No Vitamin D Lantus Lantus No QD Lantus SoloStar SoloStar SoloStar 100 UNIT/ML 100 UNIT/ML 100 UNIT/ML Lisinopril- Lisinopril- No 1{table QD Lisinopril hydroCHLORO hydroCHLORO t} -hydroCHLO thiazide thiazide ROthiazide 20-12.5 MG 20-12.5 MG 20-12.5 MG Aspirin Aspirin No 1{table QD Aspirin Adult Low Adult Low t} Adult Low Dose 81 MG Dose 81 MG Dose 81 MG FreeStyle FreeStyle No FreeStyle Denisha 2 Denisha 2 Denisha 2 [place] - glipiZIDE glipiZIDE No 1{table QD glipiZIDE ER 10 MG ER 10 MG t_with_ ER [address]} CoQ-10 CoQ-10 No CoQ-10 Collagen Collagen No Collagen Vitamin Vitamin No Vitamin B-12 B-12 B-12 Probiotic Probiotic No Probiotic Turmeric Turmeric No Turmeric FreeStyle FreeStyle No FreeStyle Denisha 2 Denisha 2 Denisha 2 Sensor - Sensor - Sensor - Lisinopril- Lisinopril- No Lisinopril hydroCHLORO hydroCHLORO -hydroCHLO thiazide thiazide ROthiazide 20-12.5 MG 20-12.5 MG 20-12.5 MG Zinc Zinc No Zinc HumaLOG HumaLOG No HumaLOG KwikPen 100 KwikPen 100 KwikPen UNIT/ML UNIT/ML 100 UNIT/ML epinephrine epinephrine No epinephrin [place] 0.3 mg/0.3 0.3 mg/0.3 e 0.3 da mL mL mg/0.3 mL Medical injection, injection, injection, Group auto-inject auto-inject auto-injec or INJECT 1 or INJECT 1 tor INJECT UNIT DOSE UNIT DOSE 1 UNIT DIRECTED DIRECTED DOSE DIRECTED Vitamin E Vitamin E No Vitamin E Rosuvastati Rosuvastati No Rosuvastat n Calcium 5 n Calcium 5 in Calcium MG MG 5 MG Rosuvastati Rosuvastati No Rosuvastat n Calcium 5 n Calcium 5 in Calcium MG MG 5 MG Vitamin D Vitamin D No Vitamin D Lantus Lantus No QD Lantus SoloStar SoloStar SoloStar 100 UNIT/ML 100 UNIT/ML 100 UNIT/ML Lisinopril- Lisinopril- No 1{table QD Lisinopril hydroCHLORO hydroCHLORO t} -hydroCHLO thiazide thiazide ROthiazide 20-12.5 MG 20-12.5 MG 20-12.5 MG Aspirin Aspirin No 1{table QD Aspirin Adult Low Adult Low t} Adult Low Dose 81 MG Dose 81 MG Dose 81 MG FreeStyle FreeStyle No FreeStyle Denisha 2 Denisha 2 Denisha 2 [place] - glipiZIDE glipiZIDE No 1{table QD glipiZIDE ER 10 MG ER 10 MG t_with_ ER [address]} CoQ-10 CoQ-10 No CoQ-10 Vital Signs Vital Name Observation Time Observation Value Comments Source Diastolic blood 2023-04-16 18:05:00 60 mm[Hg] Unive rsity of pressure [facility] Heart rate 2023-04-16 18:05:00 78 /min [facility] Body height 2023-04-16 18:05:00 165.1 cm [facility] Body weight 2023-04-16 18:05:00 77.293 kg [facility] BMI 2023-04-16 18:05:00 28.36 kg/m2 [facility] Oxygen saturation in 2023-04-16 18:05:00 98 /min [facility] Arterial blood by [facility] Pulse oximetry Branch Systolic blood 2023-04-16 18:05:00 139 mm[Hg] Krishna meek of pressure [facility] Body Weight 2023-02-28 00:00:00 168.4 [lb_av] [facility] BP Diastolic 2023-02-28 00:00:00 60 mm[Hg] [facility] Height 2023-02-28 00:00:00 64 [in_i] [facility] BMI (Body Mass 2023-02-28 00:00:00 28.9 kg/m2 [facility] coat examiner Medical Index) Group BP Systolic 2023-02-28 00:00:00 134 mm[Hg] [facility] height 2022-09-04 14:40:00 64.25 [in_i] [facility] weight 2022-09-04 14:40:00 169 [lb_av] [facility] temperature 2022-09-04 14:40:00 97.3 [degF] [facility] bmi 2022-09-04 14:40:00 28.78 kg/m2 [facility] oximetry 2022-09-04 14:40:00 97 % [facility] respiratory rate 2022-09-04 14:40:00 16 /min [facility] blood pressure 2022-09-04 14:40:00 132 mm[Hg] [facility] - systolic [facility] blood pressure 2022-09-04 14:40:00 77 mm[Hg] [facility] - diastolic [facility] height 2022-06-05 10:20:00 64.25 [in_i] [facility] weight 2022-06-05 10:20:00 165.2 [lb_av] [facility] temperature 2022-06-05 10:20:00 97.6 [degF] [facility] bmi 2022-06-05 10:20:00 28.13 kg/m2 [facility] oximetry 2022-06-05 10:20:00 97 % [facility] respiratory rate 2022-06-05 10:20:00 18 /min [facility] blood pressure 2022-06-05 10:20:00 132 mm[Hg] [facility] - systolic [facility] blood pressure 2022-06-05 10:20:00 58 mm[Hg] [facility] - diastolic [facility] height 2022-06-02 10:40:00 65 [in_i] [facility] weight 2022-06-02 10:40:00 165.8 [lb_av] [facility] bmi 2022-06-02 10:40:00 27.59 kg/m2 [facility] height 2022-05-19 11:20:00 65 [in_i] [facility] weight 2022-05-19 11:20:00 165.8 [lb_av] [facility] temperature 2022-05-19 11:20:00 97.9 [degF] [facility] bmi 2022-05-19 11:20:00 27.59 kg/m2 [facility] oximetry 2022-05-19 11:20:00 98 % [facility] respiratory rate 2022-05-19 11:20:00 18 /min [facility] blood pressure 2022-05-19 11:20:00 139 mm[Hg] [facility] - systolic [facility] blood pressure 2022-05-19 11:20:00 65 mm[Hg] [facility] - diastolic [facility] Systolic blood 2022-03-31 14:46:00 143 mm[Hg] Univer sity of pressure [facility] Diastolic blood 2022-03-31 14:46:00 75 mm[Hg] Unive rsity of pressure [facility] Heart rate 2022-03-31 14:46:00 70 /min [facility] Body weight 2022-03-31 14:46:00 75.297 kg [facility] height 2022-02-21 15:20:00 65 [in_i] [facility] weight 2022-02-21 15:20:00 164 [lb_av] [facility] temperature 2022-02-21 15:20:00 97.6 [degF] [facility] bmi 2022-02-21 15:20:00 27.29 kg/m2 [facility] oximetry 2022-02-21 15:20:00 99 % [facility] respiratory rate 2022-02-21 15:20:00 22 /min [facility] blood pressure 2022-02-21 15:20:00 135 mm[Hg] [facility] - systolic [facility] blood pressure 2022-02-21 15:20:00 63 mm[Hg] [facility] - diastolic [facility] BP Diastolic 2021-12-02 00:00:00 67 mm[Hg] [facility] Height 2021-12-02 00:00:00 64 [in_i] [facility] BMI (Body Mass 2021-12-02 00:00:00 28.3 kg/m2 [facility] Index) Group BP Systolic 2021-12-02 00:00:00 149 mm[Hg] [facility] Body Weight 2021-12-02 00:00:00 165 [lb_av] [facility] BP Diastolic 2021-11-04 00:00:00 74 mm[Hg] [facility] Height 2021-11-04 00:00:00 64 [in_i] [facility] BMI (Body Mass 2021-11-04 00:00:00 28.5 kg/m2 [facility]) Group BP Systolic 2021-11-04 00:00:00 136 mm[Hg] [facility] Body Weight 2021-11-04 00:00:00 166.2 [lb_av] [facility] height 2021-10-21 13:40:00 65 [in_i] [facility] weight 2021-10-21 13:40:00 167 [lb_av] [facility] temperature 2021-10-21 13:40:00 97.9 [degF] [facility] bmi 2021-10-21 13:40:00 27.79 kg/m2 [facility] blood pressure 2021-10-21 13:40:00 122 mm[Hg] [facility] - systolic [facility] blood pressure 2021-10-21 13:40:00 68 mm[Hg] [facility] - diastolic [facility] height 2021-10-21 14:40:00 65 [in_i] [facility] weight 2021-10-21 14:40:00 167 [lb_av] [facility] temperature 2021-10-21 14:40:00 97.9 [degF] [facility] bmi 2021-10-21 14:40:00 27.79 kg/m2 [facility] S pirit [facility] oximetry 2021-10-21 14:40:00 98 % [facility] blood pressure 2021-10-21 14:40:00 122 mm[Hg] [facility] - systolic [facility] blood pressure 2021-10-21 14:40:00 68 mm[Hg] [facility] - diastolic [facility] height 2021-07-21 13:20:00 65 [in_i] [facility] weight 2021-07-21 13:20:00 173 [lb_av] [facility] temperature 2021-07-21 13:20:00 97.3 [degF] [facility] bmi 2021-07-21 13:20:00 28.79 kg/m2 [facility] oximetry 2021-07-21 13:20:00 97 % [facility] respiratory rate 2021-07-21 13:20:00 19 /min [facility] blood pressure 2021-07-21 13:20:00 127 mm[Hg] [facility] - systolic [facility] blood pressure 2021-07-21 13:20:00 63 mm[Hg] [facility] - diastolic [facility] Respitory Rate 2023-03-12 20:21:00 [facility] Systolic (mm Hg) 2023-03-12 20:21:00 En rial Vicente Diastolic (mm Hg) 2023-03-12 20:21:00 Mem [facility]rial [facility] Heart Rate 2023-03-12 20:00:00 [facility] Respitory Rate 2023-03-12 20:00:00 [facility] Systolic (mm Hg) 2023-03-12 20:00:00 En rial Vicente Diastolic (mm Hg) 2023-03-12 20:00:00 Mem [facility] Heart Rate 2023-03-12 19:50:00 [facility] Respitory Rate 2023-03-12 19:50:00 [facility] Systolic (mm Hg) 2023-03-12 19:50:00 En rial [facility] Diastolic (mm Hg) 2023-03-12 19:50:00 [facility] Heart Rate 2023-03-12 19:40:00 [facility] Temperature Oral (F) 2023-03-12 19:10:00 36.1 Nusrat [facility] Temperature Oral (F) 2023-03-12 13:26:00 36.7 Nusrat [facility] Height 2023-03-12 13:26:00 165.10 cm [facility] Weight 2023-03-12 13:26:00 [facility] Height 2023-03-07 19:33:00 165.10 cm [facility] Weight 2023-03-07 19:33:00 [facility] Procedures Procedure Date / Time Performing Clinician Source Performed US HEAD NECK 2023-05-21 17:23:00 Garrett Ruano [facility] DEXA AXIAL (HIP AND 2023-05-21 17:08:48 Garrett Ruano [facility] SPINE) Medical Branch MICROALBUMIN URINE 2023-04-19 17:34:00 [facility] FREE T4 2023-04-19 14:17:00 Garrett Ruano [facility] THYROID STIMULATING 2023-04-19 14:17:00 Garrett Ruano [facility] HORMONE [facility] Branch COMP. METABOLIC PANEL 2023-04-19 14:17:00 Garrett Ruano [facility] ([id number]) [facility] LIPID PANEL 2023-04-19 14:17:00 Garrett Ruano [facility] ([id number])(TOTAL Medical Branch CHOLESTEROL, TRIGLYCERIDES, HDL) CBC WITH DIFF 2023-04-19 14:17:00 Garrett Ruano [facility] GLYCOSYLATED HEMOGLOBIN 2023-04-19 14:17:00 Garrett Ruano [facility] (A1C) Medical Branch VITAMIN D, 25-OH 2023-04-19 14:17:00 Garrett Ruano [facility] ASSIGNMENT OF BENEFITS 2023-04-16 18:00:42 Doctor Unassigned, No [facility] Name [facility] ARTHROSCOPY SHOULDER 2023-03-12 17:28:00 Keith Carreon/BICEPS TENDONESIS [id number] (Right)<sup>3</sup> ARTHROSCOPY SHOULDER 2023-03-12 17:28:00 Keith Zhang ROTATOR CUFF REPAIR [id number] (Right)<sup>2</sup> ARTHROSCOPIC 2023-03-12 17:28:00 [facility] SHOULDER-EXTENSIVE [id number] (Right)<sup>1</sup> ARTHROSCOPY SHOULDER 2023-03-12 17:28:00 Keith Carreon/SUBACROMIAL DECOMPRESSION/ACROMIOPL ASTY [id number] (Right)<sup>4</sup> REFERRAL- 2022-08-16 06:01:00 Doctor Unassigned, No [facility] REQUEST/RESPONSE Name [facility] US, pelvis 2021-12-02 00:00:00 [facility] unlisted imaging order 2021-12-02 00:00:00 [facility] colonoscopy<sup>5</sup> 2017-09-24 00:00:00 En brittany [facility] Cataract 2009-09-24 00:00:00 [facility] Hysterectomy 1986-09-24 00:00:00 [facility] Tubal ligation 1981-09-24 00:00:00 [facility] Cataract Surgery [facility] Hyste[facility] Appendectomy [facility] Plan of Care Planned Activity Planned Date Details Comments Source Diagnostic Test 2023-02-28 urinalysis, [facility] Pending 00:00:00 dipstick [code = Group urinalysis, dipstick] Encounters Start End Encounter Admission Attending Care Care Encounter Source Date/Time Date/Time Type Type Clinicians Facility Department ID 2023-03-07 Inpatient ROXI TIM [facility] [id number] [place] 09:00:00 CANDELARIA -[id number] [facility] 2022-08-31 Outpatient Luo, Na STLMLC STLMLC [id number] 2 Common 10:29:01 [facility] 2022-06-01 Outpatient Luo, Na STLMLC STLMLC [id number] 2 Common 13:45:00 [facility] 2022-05-31 Outpatient Luo, Na STLMLC STLMLC [id number] 2 Common 17:06:00 [facility] 2022-05-22 Outpatient Luo, Na STLMLC STLMLC [id number] 2 Common 11:19:01 [facility] 2022-02-16 Outpatient Luo, Na STLMLC STLMLC [id number] 2 Common 11:37:01 [facility] 2021-10-21 Outpatient Luo, Na STLMLC STLMLC [id number] 2 Common 13:49:01 [facility] 2021-10-19 Outpatient Luo, Na STLMLC STLMLC [id number] 2 Common 14:06:12 08575 [facility] 2021-10-19 Outpatient Luo, Na STLMLC STLMLC [id number] 2 Common 13:45:40 [id number] [facility] 2021-10-19 Outpatient Luo, Na STLMLC STLMLC [id number] 2 Common 13:28:15 73040 [facility] 2021-10-19 Outpatient Luo, Na STLMLC STLMLC [id number] 2 Common 13:09:14 07432 [facility] 2021-10-19 Outpatient Luo, Na STLMLC STLMLC [id number] 2 Common 13:01:42 [id number] [facility] 2021-10-19 Outpatient Luo, Na STLMLC STLMLC [id number] 2 Common 12:59:17 [id number] [facility] 2021-10-19 Outpatient Luo, Na STLMLC STLMLC [id number] 2 Common 12:58:01 62827 [facility] 2021-10-19 Outpatient Luo, Na STLMLC STLMLC [id number] 2 Common 12:31:22 [id number] [facility] 2021-10-19 Outpatient Luo, Na STLMLC STLMLC [id number] 2 Common 12:31:11 02747 [facility] 2021-10-19 Outpatient Luo, Na STLMLC STLMLC [id number] 2 Common 12:16:30 65817 [facility] 2021-10-19 Outpatient Luo, Na STLMLC STLMLC [id number] 2 Common 12:15:46 [id number] [facility] 2021-10-19 Outpatient Luo, Na STLMLC STLMLC [id number] 2 Common 12:11:33 [id number] [facility] 2023-10-15 2023-10-15 Outpatient GARRETT GLOVER [facility] [id number] Univers 13:00:00 13:00:00 ity [facility] 2023-10-15 2023-10-15 Outpatient GARRETT GLOVER [facility] [id number] [facility] 13:00:00 13:00:00 ity of [facility] 2023-05-29 2023-05-29 Patient Garrett Ruano [facility] 1.2.840.114 [id number] Univers 00:00:00 00:00:00 Secure Msg B. HEALTH 350.1.13.10 ity of [place] 4.2.7.2.686 William as ESME?BLEA [id number] [address] MEDICAL OFFICE [facility] 2023-05-25 2023-05-25 Patient Garrett Ruano [facility] [id number] [id number] Univers 00:00:00 00:00:00 Secure Msg B. HEALTH [id number] ity of [place] 4.2.7.2.686 William as ESME?BLEA [id number] [address] 2023-05-21 2023-05-21 Outpatient R GARRETT RUANO [facility] [id number] Univers 11:44:02 23:59:00 ity of [facility] 2023-05-21 2023-05-21 [facility] 1.2.840.114 [id number] Univers 11:44:02 23:59:00 Encounter B. [place] 350.1.13.10 [facility] 4.2.7.2.686 [facility] [id number] [facility] [address] 2023-05-21 2023-05-21 Outpatient R GARRETT RUANO [facility] [id number] Univers 11:42:49 11:43:00 ity of [facility] 2023-05-21 2023-05-21 [facility] Alden [facility] 1.2.840.114 [id number] Univers 11:30:00 11:43:00 Encounter B. [place] 350.1.13.10 ity [facility] 4.2.7.2.686 [facility] [id number] [facility] [address] 2023-05-21 2023-05-21 Patient Garrett Ruano [facility] 1.2.840.114 [id number] Univers 00:00:00 00:00:00 Secure Msg B. HEALTH 350.1.13.10 ity of [place] 4.2.7.2.686 William as ESME?BLEA [id number] Me dical KNEY [address] MEDICAL OFFICE BUILDING 2023-05-18 2023-05-18 Telephone Garrett Ruano [facility] 1.2.840.114 [id number] Univers 00:00:00 00:00:00 B. HEALTH 350.1.13.10 it y of [place] 4.2.7.2.686 William as ESME?BLEA [id number] Wy dical [address] MEDICAL OFFICE BUILDING 2023-05-16 2023-05-16 Patient Garrett Ruano [facility] 1.2.840.114 [id number] Univers 00:00:00 00:00:00 Secure [facility] B. HEALTH 350.1.13.10 ity of [place] 4.2.7.2.686 William as ESME?BLEA [id number] Wy dical [place] MEDICAL OFFICE BUILDING 2023-05-07 2023-05-07 Telephone Bruce Ruanoderrick [facility] 1.2.840.114 [id number] Univers 00:00:00 00:00:00 B. HEALTH 350.1.13.10 it y of [place] 4.2.7.2.686 William as ESME?BLEA [id number] Wy dical [address] MEDICAL OFFICE BUILDING 2023-04-20 2023-04-20 Telephone Garrett Ruano [facility] 1.2.840.114 [id number] Univers 00:00:00 00:00:00 B. HEALTH 350.1.13.10 it y of [place] 4.2.7.2.686 William as ESEM?BLEA [id number] Wy dical [address] MEDICAL OFFICE BUILDING 2023-04-19 2023-04-19 [employer] [employer] [facility], Ang - Umer [facility] 1.2.840.1 [id number] Univers 09:00:00 09:26:39 Visit Alden Garrett B. HEALTH 350.1.13.10 ity of [place] 4.2.7.2.686 William as ESME?BLEA [id number] Wy dical [place] [address] MEDICAL OFFICE BUILDING 2023-04-19 2023-04-19 Outpatient R GARRETT RUANO [facility] [id number] Univers 09:00:00 09:26:39 ity [facility] 2023-04-16 2023-04-16 Outpatient R GARRETT RUANO [facility] [id number] Univers 13:00:00 14:06:11 ity [facility] 2023-04-16 2023-04-16 Office Garrett Ruano [facility] 1.2.840.114 [id number] Univers 13:00:00 14:06:11 Visit B. HEALTH 350.1.13.10 it y of [place] 4.2.7.2.686 William as ESME?BLEA [id number] [facility] [address] MEDICAL OFFICE BUILDING 2023-04-16 2023-04-16 Orders Doctor AVA 1.2.840.114 [id number] Univers 00:00:00 00:00:00 Only Unassigned, TAHIRA 350.1.13.10 ity of [place] [facility] 4.2.7.2.686 William as [id number] [address] 2023-04-10 2023-04-10 Outpatient R LOI [facility] [id number] Univers 11:30:00 11:30:00 JUAN JOSE [facility] 2023-03-12 2023-03-12 Outpatient [facility] [id number] Memoria 12:48:47 20:40:00 [facility] 2023-03-12 2023-03-12 Outpatient [facility] [id number] Memoria 12:48:47 20:40:00 [facility] 2023-03-12 2023-03-12 Outpatient Law, [id number] 07:48:47 15:40:00 Nathan Savage 2023-03-12 2023-03-12 Outpatient nullFlavo [facility] [id number] Memoria 07:48:47 15:40:00 russell Zhang 2023-03-03 2023-03-03 Outpatient Rutledge_L [facility] [id number] [place] 00:00:00 00:00:00 [facility] 2023-03-03 2023-03-03 Outpatient Rutledge_L [facility] [id number] [place] 00:00:00 00:00:00 0610 [facility] 2023-02-28 2023-02-28 Outpatient Rutledge_L [facility] [id number] [place] 00:00:00 00:00:00 0607 [facility] 2023-02-28 2023-02-28 [facility] [place] [id number]00 Jorge Dickerson, Medical Medica aaliyah MD: [address] [facility], OBGYN [address], [place] [address] , Ph. [phone] 2023-02-23 2023-02-23 Outpatient Rutledge_L [facility] [id number] [place] 00:00:00 00:00:00 0602 [facility] 2023-02-23 2023-02-23 Outpatient Rutledge_L [facility] [id number] [place] 00:00:00 00:00:00 0606 [facility] 2023-02-22 2023-02-22 Outpatient ROXI SATURNINO [facility] [id number] [place] 10:28:00 10:28:00 AMOSITHA -[id number] [facility] 2023-02-22 2023-02-22 Outpatient Rutledge_L MMG [facility]G [id number] [place] 00:00:00 00:00:00 0601 [facility] 2023-01-23 2023-01-23 Outpatient Rutledge_L MMG [facility]G [id number] [place] 00:00:00 00:00:00 0502 [facility] 2022-11-21 2022-11-21 Outpatient ROXI TIM [facility] [id number] [place] 11:02:00 11:02:00 CANDELARIA -[id number] [facility] 2022-10-25 2022-10-25 Outpatient ROXI TIM [facility] [id number] [place] 10:11:00 10:11:00 AMOSITHA -[id number] [facility] 2022-09-04 2022-09-04 OFFICE STLMLC STLMLC [id number] Co mmon 00:00:00 00:00:00 VISIT [facility] LEVEL 4 [facility] 2022-08-18 2022-08-18 Telephone Sonali ERMIASMITCH [id number] [employer] 00:00:00 00:00:00 [facility] [id number] ity of [place] [id number] William as ESME?BLEA [id number] Me dical [address] MEDICAL OFFICE BUILDING 2022-08-16 2022-08-16 Orders Doctor AVA [id number] Univers 00:00:00 00:00:00 Only Unassigned, TAHIRA [id number] ity of [place] [facility] [id number] William as [phone] [address] 2022-07-28 2022-07-28 (TEL) STLMLC STLMLC [id number] Co mmon 00:00:00 00:00:00 [facility] 2022-06-26 2022-06-26 (TEL) STLMLC STLMLC [id number] Co mmon 00:00:00 00:00:00 [facility] 2022-06-16 2022-06-16 (TEL) STLMLC STLMLC [id number] Co mmon 00:00:00 00:00:00 [facility] 2022-06-14 2022-06-14 (TEL) STLMLC STLMLC [id number] Co mmon 00:00:00 00:00:00 [facility] 2022-06-09 2022-06-09 (TEL) STLMLC STLMLC [id number] Co mmon 00:00:00 00:00:00 [facility] 2022-06-06 2022-06-06 (TEL) STLMLC STLMLC [id number] Co mmon 00:00:00 00:00:00 [facility] 2022-06-05 2022-06-05 OFFICE STLMLC STLMLC [id number] Co mmon 00:00:00 00:00:00 [facility] - CHI LEVEL 4 [facility] 2022-06-02 2022-06-02 OFFICE STLMLC STLMLC [id number] Co mmon 00:00:00 00:00:00 [facility]IT [facility] PT - CHI LEVEL 4 [facility] 2022-05-31 2022-05-31 (TEL) STLMLC STLMLC [id number] Co mmon 00:00:00 00:00:00 [facility] - [facility] 2022-05-19 2022-05-19 OFFICE STLMLC STLMLC [id number] Co mmon 00:00:00 00:00:00 [facility]IT [facility] EST[facility] PT - CHI LEVEL 4 [facility] 2022-05-16 2022-05-16 (TEL) STLMLC STLC [id number] Co mmon 00:00:00 00:00:00 [facility] 2022-04-19 2022-04-19 Telephone Sonali, [facility] [id number] Univers 00:00:00 00:00:00 [facility] [id number] ity of [place] [id number] William as ESME?BLEA [phone] [address] OFFICE [facility] 2022-04-19 2022-04-19 [facility] [id number] Univers 00:00:00 00:00:00 [facility] [id number] ity of [place] [id number] William as ESME?BLEA [phone] [address] OFFICE [facility] 2022-04-13 2022-04-13 Outpatient ELIZA BRANDON [facility] [id number] 04:20:00 04:20:00 HN 0721 da [facility] 2022-03-31 2022-03-31 Outpatient BRYANT CAREY [facility] [id number] [facility] 09:20:00 10:09:17 BRYANT LYON dayonam [facility] 2022-03-31 2022-03-31 Office Sonali [facility] [id number] Univers 09:20:00 10:09:17 Visit Bryant [facility] [id number] leeann thomas [place] [id number] William as ESME?BLEA [phone] Me inéslakesha [address] MEDICAL OFFICE [facility] 2022-03-22 2022-03-22 (TEL) STLMLC STLMLC [id number] Co mmon 00:00:00 00:00:00 [facility] 2022-02-21 2022-02-21 OFFICE STLMLC STLMLC [id number] Co mmon 00:00:00 00:00:00 VISIT [facility] LEVEL 4 [facility] 2021-12-28 2021-12-28 (TEL) STLMLC STLMLC [id number] Co mmon 00:00:00 00:00:00 [facility] 2021-12-23 2021-12-23 Outpatient Rutledge_L MMG MMG [id number] 06:11:00 06:11:00 0401 [facility] 2021-12-13 2021-12-13 Outpatient ROXI HATTIE [facility] [id number] 10:58:00 10:58:00 MAGALI -[id number] [facility] 2021-12-02 2021-12-02 Outpatient ROXI [facility] [id number] 16:30:00 16:30:00 MAGALI [id number] [facility] 2021-12-02 2021-12-02 Outpatient Rutledge_L MMG MMG [id number] 05:18:00 05:18:00 0311 [facility] 2021-12-02 2021-12-02 Outpatient Rutledge_L MMG MMG [id number] 05:18:00 05:18:00 0315 [facility] 2021-12-02 2021-12-02 Magali SOLIS [place] - [id number] M [address] 00:00:00 00:00:00 [facility] cezar Cross [employer]: Medical Medical [address] [place] [phone] , Ph. [phone] 2021-11-16 2021-11-16 (TEL) STLMLC STLMLC [id number] Co mmon 00:00:00 00:00:00 [facility] - [facility]I [facility] 2021-11-04 2021-11-04 Outpatient Rutledge_L MMG MMG [id number] 10:52:00 10:52:00 0211 [facility] 2021-11-04 2021-11-04 Mallory [facility] - [id number] M [address] 00:00:00 00:00:00 Jorge Dickerson, Medical Medica aaliyah MD: [address] [place] [phone] , Ph. [phone] 2021-11-01 2021-11-01 Outpatient Rutledge_L MMG MMG [id number] 12:25:00 12:25:00 0208 [facility] 2021-10-21 2021-10-21 OFFICE STLMLC STLMLC [id number] Co mmon 00:00:00 00:00:00 VISIT EST Spir it PT LEVEL 3 - CHI [facility] 2021-10-21 2021-10-21 SUB ANNUAL STLMLC STLMLC [id number] Common 00:00:00 00:00:00 MCR [facility] WELLNESS - CHI VISIT [facility] 2021-10-06 2021-10-06 OL DIG E/M STLMLC STLMLC [id number] Common 00:00:00 00:00:00 SVC 11-20 Spir it MIN - CHI [facility] 2021-10-06 2021-10-06 (TEL) STLMLC STLMLC [id number] Co mmon 00:00:00 00:00:00 [facility] - [facility] 2021-10-03 2021-10-03 (TEL) STLMLC STLMLC [id number] Co mmon 00:00:00 00:00:00 [facility] 2021-10-03 2021-10-03 OFFICE STLMLC STLMLC [id number] Co mmon 00:00:00 00:00:00 VISIT [facility] PT - CHI LEVEL 2 [facility] 2021-09-28 2021-09-28 (TEL) STLMLC STLMLC [id number] Co mmon 00:00:00 00:00:00 [facility] 2021-08-26 2021-08-26 (TEL) STLMLC STLMLC [id number] Co mmon 00:00:00 00:00:00 [facility] 2021-07-21 2021-07-21 OFFICE STLMLC STLMLC [id number] Co mmon 00:00:00 00:00:00 VISIT [facility] PT - CHI LEVEL 4 [facility] 2021-05-26 2021-05-26 Outpatient STLMLC STLMLC [id number] Common 00:00:00 00:00:00 [facility] 2021-04-13 2021-04-13 Outpatient STLMLC STLMLC [id number] Common 00:00:00 00:00:00 [facility] 2021-04-08 2021-04-08 Outpatient STLMLC STLMLC [id number] Common 00:00:00 00:00:00 [facility] 2021-03-25 2021-03-25 Outpatient STLMLC STLMLC [id number] Common 00:00:00 00:00:00 [facility] 2021-03-24 2021-03-24 Outpatient STLMLC STLMLC [id number] Common 00:00:00 00:00:00 [facility] 2021-03-07 2021-03-07 Outpatient STLMLC STLMLC [id number] Common 00:00:00 00:00:00 [facility] 2021-02-28 2021-02-28 Outpatient STLMLC STLMLC [id number] Common 00:00:00 00:00:00 [facility] 2021-02-17 2021-02-17 Outpatient STLMLC STLMLC [id number] Common 00:00:00 00:00:00 [facility] 2021-02-17 2021-02-17 Outpatient STLMLC STLMLC [id number] Common 00:00:00 00:00:00 [facility] 2021-02-16 2021-02-16 Outpatient STLMLC STLMLC [id number] Common 00:00:00 00:00:00 [facility] 2021-02-09 2021-02-09 Outpatient STLMLC STLMLC [id number] Common 00:00:00 00:00:00 [facility] 2021-02-07 2021-02-07 Outpatient STLMLC STLMLC [id number] Common 00:00:00 00:00:00 [facility] 2021-02-01 2021-02-01 Outpatient STLMLC STLMLC [id number] Common 00:00:00 00:00:00 [facility] 2021-01-27 2021-01-27 Outpatient STLMLC STLMLC [id number] Common 00:00:00 00:00:00 [facility] 2021-01-25 2021-01-25 Outpatient STLMLC STLMLC [id number] Common 00:00:00 00:00:00 [facility] 2021-01-20 2021-01-20 Outpatient STLMLC STLMLC [id number] Common 00:00:00 00:00:00 [facility] 2021-01-04 2021-01-04 Outpatient STLMLC STLMLC [id number] Common 00:00:00 00:00:00 [facility] 2020-12-31 2020-12-31 Outpatient STLMLC STLMLC [id number] Common 00:00:00 00:00:00 [facility] 2020-12-21 2020-12-21 Outpatient STLMLC STLMLC [id number] Common 00:00:00 00:00:00 [facility] 2020-12-16 2020-12-16 Outpatient STLMLC STLMLC [id number] Common 00:00:00 00:00:00 [facility] 2020-12-12 2020-12-12 Outpatient STLMLC STLMLC [id number] Common 00:00:00 00:00:00 [facility] 2020-12-08 2020-12-08 Outpatient STLMLC STLMLC [id number] Common 00:00:00 00:00:00 [facility] 2020-12-06 2020-12-06 Outpatient STLMLC STLMLC [id number] Common 00:00:00 00:00:00 [facility] 2020-11-30 2020-11-30 Outpatient STLMLC STLMLC [id number] Common 00:00:00 00:00:00 [facility] 2020-11-26 2020-11-26 Outpatient STLMLC STLMLC [id number] Common 00:00:00 00:00:00 [facility] 2020-11-25 2020-11-25 Outpatient STLMLC STLMLC [id number] Common 00:00:00 00:00:00 [facility] 2020-11-18 2020-11-18 Outpatient STLMLC STLMLC [id number] Common 00:00:00 00:00:00 [facility] 2020-11-16 2020-11-16 Outpatient STLMLC STLMLC [id number] Common 00:00:00 00:00:00 [facility] 2020-11-05 2020-11-05 Outpatient STLMLC STLMLC [id number] Common 00:00:00 00:00:00 [facility] 2020-11-03 2020-11-03 Outpatient STLMLC STLMLC [id number] Common 00:00:00 00:00:00 [facility] 2020-10-20 2020-10-20 Outpatient STLMLC STLMLC [id number] Common 00:00:00 00:00:00 [facility] 2020-10-07 2020-10-07 Outpatient STLMLC STLMLC [id number] Common 00:00:00 00:00:00 [facility] 2020-10-07 2020-10-07 Outpatient STLMLC STLMLC [id number] Common 00:00:00 00:00:00 [facility] 2020-10-07 2020-10-07 Outpatient STLMLC STLMLC [id number] Common 00:00:00 00:00:00 [facility] 2020-10-04 2020-10-04 Outpatient STLMLC STLMLC [id number] Common 00:00:00 00:00:00 [facility] 2020-09-23 2020-09-23 Outpatient STLMLC STLMLC [id number] Common 00:00:00 00:00:00 [facility] 2020-08-31 2020-08-31 Outpatient STLMLC STLMLC [id number] Common 00:00:00 00:00:00 [facility] Results Test Description Test Time Test Comments Results Result Comments Source LABORATORY 2023-03-12 13:54:00 Test Item Value Reference Range Interpretation Comme nts Blood Glucose, Capillary (test code = Blood Glucose, Capillary) 195 74-106 [facility]VoanklyMVLJTZGSFU8629-70-97 13:54:00 Test Item Value Reference Range Interpretation Comments Blood Glucose, Capillary (test code = 195 74-106 Blood Glucose, Capillary) [facility] CenterOssvtolFICIJALJQC6935-01-30 13:54:00 Test Item Value Reference Range Interpretation Comments Blood Glucose, Capillary (test code = 195 74-106 Blood Glucose, Capillary) [facility] CenterHsqpunpZJHPJEGACI6105-31-16 20:32:00 Test Item Value Reference Range Interpretation Comments Hemoglobin (test code = Hemoglobin) 12.8 [facility] CenterStnkadqBWUEUTSGZC6426-25-80 20:32:00 Test Item Value Reference Range Interpretation Comments Hematocrit (test code = Hematocrit) 38.5 [facility] CenterMyforfpDZOIBZHBEV6845-22-27 20:32:00 Test Item Value Reference Range Interpretation Comments MCV (test code = MCV) 90.6 [facility] CenterYklidxsJICFTHTZHL4329-39-62 20:32:00 Test Item Value Reference Range Interpretation Comments MCH (test code = MCH) 30.1 pg [facility] CenterOugjsdvBFQQEIHAFV7784-05-32 20:32:00 Test Item Value Reference Range Interpretation Comments MCHC (test code = MCHC) 33.2 [facility] CenterZxyypkjPAEZRRINLT8400-88-65 20:32:00 Test Item Value Reference Range Interpretation Comments RDW (test code = RDW) 14.1 [facility] CenterJrojpnrASGMEKDWOD8542-69-35 20:32:00 Test Item Value Reference Range Interpretation Comments Platelet (test code = Platelet) 179 [facility] CenterHsepcqtQWUHHADBCN7629-22-70 20:32:00 Test Item Value Reference Range Interpretation Comments MPV (test code = MPV) 9.3 [facility] CenterXbdetvuHAUDTIPTUP7497-28-92 20:32:00 Test Item Value Reference Range Interpretation Comments Sodium Level (test code = Sodium Level) 140 [facility] CenterNpxsnpjWLGXSWKVTW0279-08-37 20:32:00 Test Item Value Reference Range Interpretation Comments Potassium Level (test code = Potassium 3.7 Level) [facility] CenterUuqfxmmWNYJTCAPFE0079-50-30 20:32:00 Test Item Value Reference Range Interpretation Comments Chloride Level (test code = Chloride 105 Level) [facility] CenterSpmeilwELITPUIFEA7854-45-09 20:32:00 Test Item Value Reference Range Interpretation Comments Total Carbon Dioxide Level (test code = 30 Total Carbon Dioxide Level) [facility] CenterIjtwlkiOEYLJEDZWK4889-42-63 20:32:00 Test Item Value Reference Range Interpretation Comments AGAP (test code = AGAP) 8.7 [facility] CenterOwuukvlTBAKVEIEXX7377-44-47 20:32:00 Test Item Value Reference Range Interpretation Comments Glucose Lvl (test code = Glucose Lvl) 163 [facility] CenterSamitqbCQNQPIKFDC5738-76-21 20:32:00 Test Item Value Reference Range Interpretation Comments Creatinine (test code = Creatinine) 0.80 [facility] CenterNmqfqhdCPQKDKMZKD3779-59-29 20:32:00 Test Item Value Reference Range Interpretation Comments BUN (test code = BUN) 28 [facility] CenterKwqpghkIINYBPVXFJ7467-19-28 20:32:00 Test Item Value Reference Range Interpretation Comments BUN/Creat Ratio (test code = BUN/Creat 35 1 Ratio) [facility] CenterFctngyvBQQXLJCXRL1717-15-55 20:32:00 Test Item Value Reference Range Interpretation Comments Protein Total (test code = Protein 7.7 Total) [facility] CenterSjbbgoaPOFITEHBEB5983-28-46 20:32:00 Test Item Value Reference Range Interpretation Comments Albumin Lvl (test code = Albumin Lvl) 3.9 [facility] CenterWwucixpNOZGVNXCHE0588-19-10 20:32:00 Test Item Value Reference Range Interpretation Comments Globulin (test code = Globulin) 3.8 [facility] CenterRbqfxvrEXEXQHGZLI6144-65-18 20:32:00 Test Item Value Reference Range Interpretation Comments Alb/Glob Ratio (test code = Alb/Glob 1.0 1 Ratio) [facility] CenterWahuhdnKWZKFKEKQX9493-36-17 20:32:00 Test Item Value Reference Range Interpretation Comments Calcium Level (test code = Calcium 9.3 Level) [facility] CenterVpoptoiFJTHRVXCIY7126-30-79 20:32:00 Test Item Value Reference Range Interpretation Comments ALT (test code = ALT) 22 [facility] CenterVdgpkrdXJPVZBLHMI2644-49-73 20:32:00 Test Item Value Reference Range Interpretation Comments White Blood Count (test code = White 5.5 Blood Count) [facility] CenterJcuuwxxOFVRRCZHKM7329-49-78 20:32:00 Test Item Value Reference Range Interpretation Comments Red Blood Cell Count (test code = Red 4.25 Blood Cell Count) [facility] CenterVrnuhpdAAVZSMORPR2419-18-23 20:32:00 Test Item Value Reference Range Interpretation Comments AST (test code = AST) 17 [facility] CenterPrtnvyxUAHYNADTRA7618-09-92 20:32:00 Test Item Value Reference Range Interpretation Comments Hemoglobin (test code = Hemoglobin) 12.8 [facility] CenterJdmiaaeUCFRRMYMQF5879-34-75 20:32:00 Test Item Value Reference Range Interpretation Comments Hematocrit (test code = Hematocrit) 38.5 [facility] CenterYmuzvocUJYXTIQWAF3927-77-97 20:32:00 Test Item Value Reference Range Interpretation Comments MCV (test code = MCV) 90.6 [facility] CenterEklokpnDSWPNSJAGP7904-47-31 20:32:00 Test Item Value Reference Range Interpretation Comments MCH (test code = MCH) 30.1 pg [facility] CenterTjcomimGCCBVZTQIP4540-41-52 20:32:00 Test Item Value Reference Range Interpretation Comments MCHC (test code = MCHC) 33.2 [facility] CenterFenokicRJAPAEBQFF2383-32-51 20:32:00 Test Item Value Reference Range Interpretation Comments RDW (test code = RDW) 14.1 [facility] CenterVnrgmheSZBYZWHBRW4602-11-27 20:32:00 Test Item Value Reference Range Interpretation Comments Platelet (test code = Platelet) 179 [facility] CenterTebtzxnYGNVFSWRUP3088-89-59 20:32:00 Test Item Value Reference Range Interpretation Comments MPV (test code = MPV) 9.3 [facility] CenterQtjqsgiLHTIXPJXTQ2446-42-06 20:32:00 Test Item Value Reference Range Interpretation Comments Sodium Level (test code = Sodium Level) 140 [facility] CenterEolknijYQKUBKRODS2853-07-36 20:32:00 Test Item Value Reference Range Interpretation Comments Potassium Level (test code = Potassium 3.7 Level) [facility] CenterUlbyjuxYKMWPCUDPM6215-38-39 20:32:00 Test Item Value Reference Range Interpretation Comments Chloride Level (test code = Chloride 105 Level) [facility] CenterXcsuqpvHBEPFJOYDD3814-98-38 20:32:00 Test Item Value Reference Range Interpretation Comments Total Carbon Dioxide Level (test code = 30 Total Carbon Dioxide Level) [facility] CenterNcyladdKWBNMOFZRG1162-28-96 20:32:00 Test Item Value Reference Range Interpretation Comments AGAP (test code = AGAP) 8.7 [facility] CenterNbiqkjqHSFRLQDFIU1247-11-14 20:32:00 Test Item Value Reference Range Interpretation Comments Glucose Lvl (test code = Glucose Lvl) 163 [facility] CenterCsfokthLTMJFFNYWU2476-22-25 20:32:00 Test Item Value Reference Range Interpretation Comments Creatinine (test code = Creatinine) 0.80 [facility] CenterYhbogqvPUTCUFVWVL2823-48-84 20:32:00 Test Item Value Reference Range Interpretation Comments BUN (test code = BUN) 28 [facility] CenterPogyeyzJGPUBIVFSM9930-57-78 20:32:00 Test Item Value Reference Range Interpretation Comments BUN/Creat Ratio (test code = BUN/Creat 35 1 Ratio) [facility] CenterGcxyoojCXAIOKNCNC8319-41-20 20:32:00 Test Item Value Reference Range Interpretation Comments Protein Total (test code = Protein 7.7 Total) [facility] CenterJujsttlHFPFFHGTKA0478-10-09 20:32:00 Test Item Value Reference Range Interpretation Comments Albumin Lvl (test code = Albumin Lvl) 3.9 [place] 777223-06-14 20:32:00 Test Item Value Reference Range Interpretation Comments Globulin (test code = Globulin) 3.8 [facility] CenterHoyqwqoTRXJRLKHYX6117-32-25 20:32:00 Test Item Value Reference Range Interpretation Comments Bilirubin Total (test code = Bilirubin 0.5 Total) [facility] CenterMjaxalyPZIZZCYHMC8982-42-71 20:32:00 Test Item Value Reference Range Interpretation Comments Alb/Glob Ratio (test code = Alb/Glob 1.0 1 Ratio) [facility] CenterRwenfcvJMMAWRYZHL2842-52-89 20:32:00 Test Item Value Reference Range Interpretation Comments Calcium Level (test code = Calcium 9.3 Level) [facility] CenterEtjeglgQSKLRCECYS1908-88-62 20:32:00 Test Item Value Reference Range Interpretation Comments ALT (test code = ALT) 22 [facility] CenterOcumbpmIFBFGRHCLN7740-10-69 20:32:00 Test Item Value Reference Range Interpretation Comments AST (test code = AST) 17 [facility] CenterSanyooyGKEBDMQQBY1150-49-37 20:32:00 Test Item Value Reference Range Interpretation Comments Bilirubin Total (test code = Bilirubin 0.5 Total) [facility] CenterOtoyoceEEAGINVGPJ7185-98-57 20:32:00 Test Item Value Reference Range Interpretation Comments Alk Phos (test code = Alk Phos) 115 [facility] CenterKnsyjejKARZRNODEI3094-92-61 20:32:00 Test Item Value Reference Range Interpretation Comments eGFR (test code = eGFR) 79 [facility] CenterDjwrxlbRXRWLNFMZP9725-25-11 20:32:00 Test Item Value Reference Range Interpretation Comments Hgb A1c (test code = Hgb A1c) 8.1 [facility] CenterFadfrhxLTWDWQPWIH8285-48-85 20:32:00 Test Item Value Reference Range Interpretation Comments Segs Man (test code = Segs Man) 61.2 [facility] CenterWxozkmmKKRKZRKAOQ3271-90-37 20:32:00 Test Item Value Reference Range Interpretation Comments Monocyte % (test code = Monocyte %) 7.0 [facility] CenterQtmhxpcYOFBGFMRSU6951-10-13 20:32:00 Test Item Value Reference Range Interpretation Comments Lymphocyte % (test code = Lymphocyte %) 29.7 [facility] CenterQpjdfgcQTFHAEYYZB2486-11-17 20:32:00 Test Item Value Reference Range Interpretation Comments Eosinophil % (test code = Eosinophil %) 1.6 [facility] CenterYinuuizOZVAKFSIHK0877-82-72 20:32:00 Test Item Value Reference Range Interpretation Comments Basophil % (test code = Basophil %) 0.5 [facility] CenterFptpevhECETJABAOZ2191-79-46 20:32:00 Test Item Value Reference Range Interpretation Comments Neutrophil # (test code = Neutrophil #) 3.4 [facility]aleZukurpkVHEWDNPPSF1480-07-16 20:32:00 Test Item Value Reference Range Interpretation Comments Lymphocyte # (test code = Lymphocyte #) 1.6 [facility] SystemLcrgjqnKYZMPIAFCU0469-67-34 20:32:00 Test Item Value Reference Range Interpretation Comments Monocyte # (test code = Monocyte #) 0.4 [facility] SystemVgwufocXTWXRJSYHY9487-01-54 20:32:00 Test Item Value Reference Range Interpretation Comments Eosinophil # (test code = Eosinophil #) 0.1 [facility]xrgAANWZDWAPC3034-62-24 20:32:00 Test Item Value Reference Range Interpretation Comments Alk Phos (test code = Alk Phos) 115 [facility] CenterDfoakmdUSZXVFHLSX8921-79-55 20:32:00 Test Item Value Reference Range Interpretation Comments eGFR (test code = eGFR) 79 [facility] CenterWrhtrepJKIITUKMOA9000-75-03 20:32:00 Test Item Value Reference Range Interpretation Comments Hgb A1c (test code = Hgb A1c) 8.1 [facility] CenterLlgeakeWXXCJCTNBV8615-35-59 20:32:00 Test Item Value Reference Range Interpretation Comments Segs Man (test code = Segs Man) 61.2 [facility]KuoisduNNRWHRXHUS0023-28-33 20:32:00 Test Item Value Reference Range Interpretation Comments Monocyte % (test code = Monocyte %) 7.0 [facility] SystemHytublxLYZNTLJGUI6925-49-08 20:32:00 Test Item Value Reference Range Interpretation Comments Lymphocyte % (test code = Lymphocyte %) 29.7 [facility] CenterJodcvjxESIGGFMADP6820-22-80 20:32:00 Test Item Value Reference Range Interpretation Comments Eosinophil % (test code = Eosinophil %) 1.6 [facility] SystemUakrzsgEWQHBEAPBC6471-64-97 20:32:00 Test Item Value Reference Range Interpretation Comments Basophil % (test code = Basophil %) 0.5 [facility] SystemLsrixzpVKUUEPEIGM1289-19-55 20:32:00 Test Item Value Reference Range Interpretation Comments Neutrophil # (test code = Neutrophil #) 3.4 [facility] SystemBosfsuvISFJIXZPAP2391-61-08 20:32:00 Test Item Value Reference Range Interpretation Comments Lymphocyte # (test code = Lymphocyte #) 1.6 [facility] SystemLtvfemhLZDPEXBNXS2899-03-76 20:32:00 Test Item Value Reference Range Interpretation Comments Monocyte # (test code = Monocyte #) 0.4 [facility] CenterNxlifmoQEQQUWTFCW2005-12-55 20:32:00 Test Item Value Reference Range Interpretation Comments Eosinophil # (test code = Eosinophil #) 0.1 [facility] CenterSvzahqbBWGLHEFFEF4967-36-60 20:32:00 Test Item Value Reference Range Interpretation Comments White Blood Count (test code = White 5.5 Blood Count) [facility] CenterAqinkusDMERJHYXTN9465-77-72 20:32:00 Test Item Value Reference Range Interpretation Comments Red Blood Cell Count (test code = Red 4.25 Blood Cell Count) [facility] CenterDxaohavMWHDJXZAUD2023-04-84 20:32:00 Test Item Value Reference Range Interpretation Comments Hemoglobin (test code = Hemoglobin) 12.8 [facility] CenterYinmrqwQIXFFXYKCQ4822-49-56 20:32:00 Test Item Value Reference Range Interpretation Comments Hematocrit (test code = Hematocrit) 38.5 [facility] CenterAqonxejRQRBGNHGQM0158-37-95 20:32:00 Test Item Value Reference Range Interpretation Comments MCV (test code = MCV) 90.6 [facility] CenterQyylodlBPVTPEXRSB7823-35-17 20:32:00 Test Item Value Reference Range Interpretation Comments MCH (test code = MCH) 30.1 pg [facility] CenterIkngkngRZRMECASIJ8037-15-36 20:32:00 Test Item Value Reference Range Interpretation Comments MCHC (test code = MCHC) 33.2 [facility] [id number] 20:32:00 Test Item Value Reference Range Interpretation Comments RDW (test code = RDW) 14.1 [facility]QpstzisXEBBNYSISA0576-96-72 20:32:00 Test Item Value Reference Range Interpretation Comments Platelet (test code = Platelet) 179 [facility] CenterMnwippxUMSBRWEUQL3210-88-52 20:32:00 Test Item Value Reference Range Interpretation Comments MPV (test code = MPV) 9.3 [facility] CenterWbqoeqxUBGYAMCNBO4182-76-08 20:32:00 Test Item Value Reference Range Interpretation Comments Sodium Level (test code = Sodium Level) 140 [facility] CenterNwqufbaNGKHFVZBPH9312-08-06 20:32:00 Test Item Value Reference Range Interpretation Comments Potassium Level (test code = Potassium 3.7 Level) [facility] CenterIgugdbhAZHHABFXNY9827-47-76 20:32:00 Test Item Value Reference Range Interpretation Comments Chloride Level (test code = Chloride 105 Level) [facility] CenterZoejdzpEYSFAOANRV3643-95-77 20:32:00 Test Item Value Reference Range Interpretation Comments Total Carbon Dioxide Level (test code = 30 Total Carbon Dioxide Level) [facility] CenterUscubyuGNESVBZVCE5418-85-24 20:32:00 Test Item Value Reference Range Interpretation Comments AGAP (test code = AGAP) 8.7 [facility] CenterBmmuwxqLWPWWJVGNE5545-65-73 20:32:00 Test Item Value Reference Range Interpretation Comments Glucose Lvl (test code = Glucose Lvl) 163 [facility] CenterCnndipuQLVGIJKLBP0024-54-60 20:32:00 Test Item Value Reference Range Interpretation Comments Creatinine (test code = Creatinine) 0.80 [facility] CenterOoxvfxlPCQUNJOAWL1564-03-68 20:32:00 Test Item Value Reference Range Interpretation Comments BUN (test code = BUN) 28 [facility] CenterTnvszbrZSZHNLUEUC3510-58-59 20:32:00 Test Item Value Reference Range Interpretation Comments BUN/Creat Ratio (test code = BUN/Creat 35 1 Ratio) [facility] CenterMrskmvkYHNDVNMNRE8380-06-66 20:32:00 Test Item Value Reference Range Interpretation Comments Protein Total (test code = Protein 7.7 Total) [facility] CenterMlopjloNJFPEXNVQZ9848-30-39 20:32:00 Test Item Value Reference Range Interpretation Comments Albumin Lvl (test code = Albumin Lvl) 3.9 [facility] CenterEiqxfbvYDPEGEKIZT8319-29-01 20:32:00 Test Item Value Reference Range Interpretation Comments Globulin (test code = Globulin) 3.8 [facility] CenterQkderrvQWCTZZVBEF0931-09-92 20:32:00 Test Item Value Reference Range Interpretation Comments Alb/Glob Ratio (test code = Alb/Glob 1.0 1 Ratio) [facility] CenterKhjtguzOVGREPDZZW5656-73-34 20:32:00 Test Item Value Reference Range Interpretation Comments Calcium Level (test code = Calcium 9.3 Level) [facility] CenterAjygwhxQXPTEVSUDF2222-26-18 20:32:00 Test Item Value Reference Range Interpretation Comments ALT (test code = ALT) 22 [facility] CenterIfdskztYPHUFJKKIH0797-41-98 20:32:00 Test Item Value Reference Range Interpretation Comments AST (test code = AST) 17 [facility] CenterZwjofydWUVSTZTZYF9985-55-02 20:32:00 Test Item Value Reference Range Interpretation Comments Bilirubin Total (test code = Bilirubin 0.5 Total) [facility] CenterNhwjmecLBBYGXWVGV5804-25-38 20:32:00 Test Item Value Reference Range Interpretation Comments Alk Phos (test code = Alk Phos) 115 [facility] CenterHuacfssKSBABOUAOJ2920-22-95 20:32:00 Test Item Value Reference Range Interpretation Comments eGFR (test code = eGFR) 79 [facility] CenterGtvrgfzIDVUSXSUVA8941-55-23 20:32:00 Test Item Value Reference Range Interpretation Comments Hgb A1c (test code = Hgb A1c) 8.1 [facility] CenterHvzzjmaFPMWZHDZNB6383-16-54 20:32:00 Test Item Value Reference Range Interpretation Comments Segs Man (test code = Segs Man) 61.2 [facility] CenterEmuzaqeMNNCKPJPSD1606-85-56 20:32:00 Test Item Value Reference Range Interpretation Comments Monocyte % (test code = Monocyte %) 7.0 [facility] CenterTedreplYWXFXKTWEQ9468-82-49 20:32:00 Test Item Value Reference Range Interpretation Comments Lymphocyte % (test code = Lymphocyte %) 29.7 [facility] CenterRuqcsqsFXSOXEKBRM8817-27-60 20:32:00 Test Item Value Reference Range Interpretation Comments Eosinophil % (test code = Eosinophil %) 1.6 [facility] CenterLaspdyuEEBTRWCDEQ8477-37-54 20:32:00 Test Item Value Reference Range Interpretation Comments Basophil % (test code = Basophil %) 0.5 [facility] CenterYfloyhmIYYGKCDTYF3421-88-63 20:32:00 Test Item Value Reference Range Interpretation Comments Neutrophil # (test code = Neutrophil #) 3.4 [facility] CenterGezcxykFBWCTKIJRF4273-93-18 20:32:00 Test Item Value Reference Range Interpretation Comments Lymphocyte # (test code = Lymphocyte #) 1.6 [facility] CenterMpbyhfnBQADYNBSNV2082-70-95 20:32:00 Test Item Value Reference Range Interpretation Comments Monocyte # (test code = Monocyte #) 0.4 [facility] CenterNtzvwsyYQEULIAZBX6233-53-45 20:32:00 Test Item Value Reference Range Interpretation Comments Eosinophil # (test code = Eosinophil #) 0.1 [facility] CenterCcrnvepPJJBJXNWOS7664-44-92 20:32:00 Test Item Value Reference Range Interpretation Comments White Blood Count (test code = White 5.5 Blood Count) [facility] CenterUfdraykRKTIRLXLBN2465-68-72 20:32:00 Test Item Value Reference Range Interpretation Comments Red Blood Cell Count (test code = Red 4.25 Blood Cell Count) [facility] - [id number] 10:27:00 Test Item Value Reference Range Interpretation Comments Leukocytes (test code = Leukocytes) Small Nitrite (test code = Nitrite) negative Urobilinogen (test code = .2 Urobilinogen) Protein (test code = Protein) Negative pH (test code = pH) 6.0 Blood (test code = Blood) Negative Specific Dania (test code = 1.015 Specific Dania) Ketone (test code = Ketone) Negative Bilirubin (test code = Bilirubin) Negative Glucose (test code = Glucose) 100 Appearance (test code = Appearance) Clear Color (test code = Color) Yellow [facility] (dipstick) panel - [id number] 15:38:29 Test Item Value Reference Range Interpretation Comments Leukocytes (test code = Leukocytes) Small Nitrite (test code = Nitrite) negative Urobilinogen (test code = .2 Urobilinogen) Protein (test code = Protein) 2000+ pH (test code = pH) 6.5 Blood (test code = Blood) Large Specific Dania (test code = 1.015 Specific Dania) Ketone (test code = Ketone) Negative Bilirubin (test code = Bilirubin) Negative Glucose (test code = Glucose) Negative Appearance (test code = Appearance) Clear Color (test code = Color) Yellow [facility]antibiotic sensitivity testing, [id number] 02:40:00 Test Item Value Reference Range Interpretation Comments Gentamicin [Susceptibility] by <=2 Minimum inhibitory concentration (KATIA) (test code = 267-5) Ampicillin [Susceptibility] by <=4 Minimum inhibitory concentration (KATIA) (test code = 28-1) Cefazolin [Susceptibility] by 2 ug/mL Minimum inhibitory concentration (KATIA) (test code = 76-0) Trimethoprim+Sulfamethoxazole =0.5 [Susceptibility] by Minimum inhibitory concentration (KATIA) (test code = 516-5) Tetracycline [Susceptibility] by <=2 Minimum inhibitory concentration (KATIA) (test code = 496-0) Amoxicillin+Clavulanate =4/2 [Susceptibility] by Minimum inhibitory concentration (KATIA) (test code = 20-8) Tobramycin [Susceptibility] by <=2 Minimum inhibitory concentration (KATIA) (test code = 508-2) Nitrofurantoin [Susceptibility] by 32 ug/mL Minimum inhibitory concentration (KATIA) (test code = 363-2) cefOXitin [Susceptibility] by <=4 Minimum inhibitory concentration (KATIA) (test code = 116-4) levoFLOXacin [Susceptibility] by <=0.5 Minimum inhibitory concentration (KATIA) (test code = 15727-7) cefTAZidime [Susceptibility] by <=2 Minimum inhibitory concentration (KATIA) (test code = 133-9) cefTRIAXone [Susceptibility] by <=1 Minimum inhibitory concentration (KATIA) (test code = 141-2) Ciprofloxacin [Susceptibility] by <=0.25 Minimum inhibitory concentration (KATIA) (test code = 185-9) Ampicillin+Sulbactam =2/1 [Susceptibility] by Minimum inhibitory concentration (KATIA) (test code = 32-3) Ertapenem [Susceptibility] by <=0.25 Minimum inhibitory concentration (KATIA) (test code = 72762-2) Aztreonam [Susceptibility] by <=2 Minimum inhibitory concentration (KATIA) (test code = 44-8) Cefepime [Susceptibility] by Minimum <=1 inhibitory concentration (KATIA) (test code = 6644-9) Meropenem [Susceptibility] by <=0.5 Minimum inhibitory concentration (KATIA) (test code = 6652-2) Moxifloxacin [Susceptibility] by <=1 Minimum inhibitory concentration (KATIA) (test code = 53938-4) Amikacin [Susceptibility] by Minimum <=8 inhibitory concentration (KATIA) (test code = 12-5) Piperacillin+Tazobactam =2/4 [Susceptibility] by Minimum inhibitory concentration (KATIA) (test code = 412-7) Ceftaroline [Susceptibility] by <=0.25 Minimum inhibitory concentration (KATIA) (test code = 41813-0) Tigecycline [Susceptibility] by <=1 Minimum inhibitory concentration (KATIA) (test code = 69240-2) [facility] CenterColony count [#/volume] in [id number] 00:00:00 Test Item Value Reference Range Interpretation Comments group B streptococcus (gbs) by negative real-time PCR (test code = group B streptococcus (gbs) by real-time PCR) escherichia coli by real-time PCR positive A (test code = escherichia coli by real-time PCR) proteus mirabilis by real-time PCR negative (test code = proteus mirabilis by real-time PCR) staphylococcus saprophyticus by negative real-time PCR (test code = staphylococcus saprophyticus by real-time PCR) enterococcus faecalis by real-time negative PCR (test code = enterococcus faecalis by real-time PCR) enterococcus faecium by real-time negative PCR (test code = enterococcus faecium by real-time PCR) pseudomonas aeruginosa by real-time negative PCR (test code = pseudomonas aeruginosa by real-time PCR) urinary pathogens (E. coli klebsiella spp. P. mirabilis E. faecalis E. faecium gbs P. aeruginosa) an (test code = urinary pathogens (E. coli klebsiella spp. P. mirabilis E. faecalis E. faecium gbs P. aeruginosa) an) klebsiella oxytoca by real-time PCR negative (test code = klebsiella oxytoca by real-time PCR) klebsiella pneumoniae by real-time negative PCR (test code = klebsiella pneumoniae by real-time PCR) [facility] CenterUrinalysis macro (dipstick) panel - [id number] 10:46:09 Test Item Value Reference Range Interpretation Comments Leukocytes (test code = Large Leukocytes) Nitrite (test code = Nitrite) positive Urobilinogen (test code = .2 Urobilinogen) Protein (test code = Protein) Negative pH (test code = pH) 6.0 Blood (test code = Blood) Small Specific Dania (test code = 1.010 Specific Dania) Ketone (test code = Ketone) Negative Bilirubin (test code = Bilirubin) Negative Glucose (test code = Glucose) 250 Appearance (test code = Cloudy Appearance) Color (test code = Color) Pale Yellow [facility] CenterUrinalysis macro (dipstick) panel - [id number] 10:46:09 Test Item Value Reference Range Interpretation Comments Leukocytes (test code = Large Leukocytes) Nitrite (test code = Nitrite) positive Urobilinogen (test code = .2 Urobilinogen) Protein (test code = Protein) Negative pH (test code = pH) 6.0 Blood (test code = Blood) Small Specific Dania (test code = 1.010 Specific Dania) Ketone (test code = Ketone) Negative Bilirubin (test code = Bilirubin) Negative Glucose (test code = Glucose) 250 Appearance (test code = Cloudy Appearance) Color (test code = Color) Pale Yellow [facility] CenterHand Left 2 ViewHand Left 2 ViewFinger-Thumb LeftFinger- Thumb Left
[2023-06-14] MEDS ORDERED: KETOROLAC 30 MG/ML INJ ONE (11:37)
--- NOTE | 2023-06-14 11:37 | RAD REPORT ---
EXAM DESCRIPTION: CT - Thoracic Spine W/o Cont - 06/14/2023 11:13 am CLINICAL HISTORY: Radiculopathy. PAIN COMPARISON: <Comparisons> TECHNIQUE: Axial CT imaging through the thoracic spine was performed with coronal and sagittal re-fo rmatted images. All CT scans are performed using dose optimization technique as appropriate and may include automated exposure control or mA/KV adjustment according to patient size. FINDINGS: Vertebral body heights and disc spaces are maintained. A compression fracture is not prese nt. No significant disc space narrowing. Thoracic spine alignment is within normal limits. No paraspinal masses or hematoma. Intervertebral disc detail is inherently limited on CT without gross findings of canal compromise. IMPRESSION: Negative study.
--- NOTE | 2023-06-14 11:47 | RAD REPORT ---
EXAM DESCRIPTION: CT - Spine Lumbar Wo Con - 06/14/2023 11:14 am CLINICAL HISTORY: Radiculopathy. PAIN COMPARISON: <Comparisons> TECHNIQUE: Axial noncontrast CT imaging of the lumbar spine was performed with coronal and sagittal re-formatted images. All CT scans are performed using dose optimization technique as appropriate and may include automated exposure control or mA/KV adjustment according to patient size. FINDINGS: No acute lumbar spine fracture seen. No aggressive marrow pattern or malalignment. Paraspinal tissues are normal in thickness. No paraspinal abscess or hematoma seen. Moderate lower lumbar degenerative changes are present. Findings appear most significant at L5-S1 wit h there is vacuum disc degeneration as well as posterior disc bulge and moderate bilateral facet arth rosis. IMPRESSION: No acute lumbar spine finding is observed. Moderate L5-S1 degenerative spondylosis with vacuum disc degeneration.
--- NOTE | 2023-06-14 12:10 | ER ---
Nurse's Notes [facility] Name: Leia Beckford Age: 68 yrs Sex: Female : 1955 Arrival Date: 06/14/2023 Time: 10:48 Bed 12 Private MD: Diagnosis: Radiculopathy, thoracolumbar region;Intervertebral disc disorders with radiculopathy, lumbar region Presentation: 06/14 10:56 Chief complaint: Patient states: Mid-lower back pain/spasms X 15 days. Been seen ld1 recently at urgent care and was told to have degenerative disc disease. Muscle relaxers are not relieving pain. Coronavirus screen: At this time, the client does not indicate any symptoms associated with coronavirus-19. Ebola Screen: No symptoms or risks identified at this time. Initial Sepsis Screen: Does the patient meet any 2 criteria? No. Patient's initial sepsis screen is negative. Does the patient have a suspected source of infection? No. Patient's initial sepsis screen is negative. Risk Assessment: Do you want to hurt yourself or someone else? Patient reports no desire to harm self or others. Onset of symptoms was June 14, 2023. 10:56 Method Of Arrival: Ambulatory ld1 10:56 Acuity: RICK 4 ld1 Triage Assessment: 10:58 General: Appears in no apparent distress. comfortable, Behavior is calm, cooperative, ld1 appropriate for age. Pain: Complains of pain in back Pain does not radiate. Pain currently is 8 out of 10 on a pain scale. Quality of pain is described as throbbing. EENT: No signs and/or symptoms were reported regarding the EENT system. Neuro: Level of Consciousness is awake, alert, obeys commands, Oriented to person, place, time, situation. Cardiovascular: Capillary refill < 3 seconds Patient's skin is warm and dry. Respiratory: Airway is patent Respiratory effort is even, unlabored. GI: Abdomen is round non-distended. : No signs and/or symptoms were reported regarding the genitourinary system. Derm: No signs and/or symptoms reported regarding the dermatologic system. Musculoskeletal: Range of motion: intact in all extremities. Historical: - Allergies: 10:58 Hydrocodone-Acetaminophen; ld1 10:58 Latex; ld1 - PMHx: 10:58 Diabetes - IDDM; Diabetes - NIDDM; High Cholesterol; Hypertension; ld1 - Immunization history:: Adult Immunizations up to date. - Social history:: Smoking status: Patient denies any tobacco usage or history of. Patient/guardian denies using alcohol. Screenin:23 [facility] ED Fall Risk Assessment (Adult) History of falling in the last 3 months, cm10 including since admission No falls in past 3 months (0 pts) Confusion or Disorientation No (0 pts) Intoxicated or Sedated No (0 pts) Impaired Gait No (0 pts) Mobility Assist Device Used No (0 pt) Altered Elimination No (0 pt) Score/Fall Risk Level 0 - 2 = Low Risk Oriented to surroundings, Maintained a safe environment. Abuse screen: Denies threats or abuse. Denies injuries from another. Nutritional screening: No deficits noted. Tuberculosis screening: No symptoms or risk factors identified. Assessment: 11:34 Reassessment: No changes from previously documented assessment. Patient and/or family ll1 updated on plan of care and expected duration. Pain level reassessed. Patient is alert, oriented x 3, equal unlabored respirations, skin warm/dry/pink. Vital Signs: 10:58 BP 155 / 77; Pulse 84; Resp 18; Temp 98.2(TE); Pulse Ox 100% on R/A; Weight 74.84 kg; ld1 Height 5 ft. 5 in. ; Pain 10/10; 12:17 BP 134 / 62; Pulse 76; Resp 16; Pulse Ox 100% on R/A; Pain 0/10; cm10 12:17 Pain 0/10; cm10 10:58 Body Mass Index 27.46 (74.84 kg, 165.1 cm) ld1 10:58 Pain Scale: Adult ld1 12:17 Pain Scale: Adult cm10 12:17 Pain Scale: Adult cm10 ED Course: 10:53 Patient arrived in ED. mg5 10:53 [facility]ved[facility] snw 10:53 Dave Lazaro MD is Attending Physician. snw 10:58 Triage completed. ld1 10:59 Arm band placed on right wrist. ld1 11:12 CT Thoracic Spine Wo Cont In Process Unspecified. EDMS 11:12 CT Lumbar Spine Wo Con In Process Unspecified. EDMS 11:22 Patient placed in an exam room, on a stretcher. ld1 11:33 Dash Ribera, RN is Primary Nurse. ll1 12:23 Patient has correct armband on for positive identification. Provided Education on: ED cm10 process and procedures.. 12:23 No provider procedures requiring assistance completed. Patient did not have IV access cm10 during this emergency room visit. Administered Medications: 11:33 Drug: Ketorolac IM 30 mg IM once Route: IM; Site: right gluteus; ll1 12:17 Follow up: Pain 0/10 Adult; Response: No adverse reaction; Pain is decreased cm10 Medication: 12:24 VIS not applicable for this client. cm10 Outcome: 12:10 Discharge ordered by MD. snw 12:23 Discharged to home ambulatory, cm10 12:23 Condition: good 12:23 Discharge instructions given to patient, Instructed on discharge instructions, follow up and referral plans. medication usage, Demonstrated understanding of instructions, follow-up care, medications, Prescriptions given X 1, 12:24 Patient left the ED. cm10 Signatures: Dispatcher [employer] EDMS Shayla Acevedo, JO ANN-C NUT GRADER-Cs[employer] Dash Ribera, RN RN ll1 Salma Enamorado RN RN ld1 Namita Varma RN RN cm10 Tianna Gutierrez mg5
--- NOTE | 2023-06-14 12:10 | EDPHYS ---
Physician Documentation [facility] Name: Leia Beckford Age: 68 yrs Sex: Female : 1955 Arrival Date: 06/14/2023 Time: 10:48 Bed 12 Private MD: ED Physician Dave Lazaro HPI: 06/14 11:02 This 68 yrs old Female presents to ER via Ambulatory with complaints of Back Pain - snw Mid-Low. 11:02 The patient presents with pain that is acute, with no known mechanism of injury. The snw symptoms are located in the lumbar area and mid back area. Onset: The symptoms/episode began/occurred 06/02/23. The pain does not radiate. Associated signs and symptoms: Pertinent positives: none. The problem was sustained from unknown cause. Modifying factors: The patient symptoms are alleviated by nothing, the patient symptoms are aggravated by bending, sitting. Severity of symptoms: At their worst the symptoms were moderate, severe. It is unknown whether or not the patient has had similar symptoms in the past. went to PCP and then UC, creams, flexeril, tramadol, not helping. Historical: - Allergies: 10:58 Hydrocodone-Acetaminophen; ld1 10:58 Latex; ld1 - PMHx: 10:58 Diabetes - IDDM; Diabetes - NIDDM; High Cholesterol; Hypertension; ld1 - Immunization history:: Adult Immunizations up to date. - Social history:: Smoking status: Patient denies any tobacco usage or history of. Patient/guardian denies using alcohol. ROS: 11:04 Constitutional: Negative for fever, chills, and weight loss, Eyes: Negative for injury, snw pain, redness, and discharge, ENT: Negative for injury, pain, and discharge, Neck: Negative for injury, pain, and swelling, Cardiovascular: Negative for chest pain, palpitations, and edema, Respiratory: Negative for shortness of breath, cough, wheezing, and pleuritic chest pain, Abdomen/GI: Negative for abdominal pain, nausea, vomiting, diarrhea, and constipation, : Negative for injury, bleeding, discharge, and swelling, MS/Extremity: Negative for injury and deformity, Skin: Negative for injury, rash, and discoloration, Neuro: Negative for headache, weakness, numbness, tingling, and seizure, Psych: Negative for depression, anxiety, suicide ideation, homicidal ideation, and hallucinations, 11:04 Back: Positive for pain at rest, pain with movement, of the lumbar area and mid back area, Exam: 11:05 Constitutional: This is a well developed, well nourished patient who is awake, alert, snw and in no acute distress. Head/Face: Normocephalic, atraumatic. Eyes: Pupils equal round and reactive to light, extra-ocular motions intact. Lids and lashes normal. Conjunctiva and sclera are non-icteric and not injected. Cornea within normal limits. Periorbital areas with no swelling, redness, or edema. ENT: Nares patent. No nasal discharge, no septal abnormalities noted. Tympanic membranes are normal and external auditory canals are clear. Oropharynx with no redness, swelling, or masses, exudates, or evidence of obstruction, uvula midline. Mucous membranes moist. Neck: Trachea midline, no thyromegaly or masses palpated, and no cervical lymphadenopathy. Supple, full range of motion without nuchal rigidity, or vertebral point tenderness. No Meningismus. Chest/axilla: Normal chest wall appearance and motion. Nontender with no deformity. No lesions are appreciated. Cardiovascular: Regular rate and rhythm with a normal S1 and S2. No gallops, murmurs, or rubs. Normal PMI, no JVD. No pulse deficits. Respiratory: Lungs have equal breath sounds bilaterally, clear to auscultation and percussion. No rales, rhonchi or wheezes noted. No increased work of breathing, no retractions or nasal flaring. Abdomen/GI: Soft, non-tender, with normal bowel sounds. No distension or tympany. No guarding or rebound. No evidence of tenderness throughout. Skin: Warm, dry with normal turgor. Normal color with no rashes, no lesions, and no evidence of cellulitis. MS/ Extremity: Pulses equal, no cyanosis. Neurovascular intact. Full, normal range of motion. Neuro: Awake and alert, GCS 15, oriented to person, place, time, and situation. Cranial nerves II-XII grossly intact. Motor strength 5/5 in all extremities. Sensory grossly intact. Cerebellar exam normal. Normal gait. Psych: Awake, alert, with orientation to person, place and time. Behavior, mood, and affect are within normal limits. 11:05 Back: pain, that is moderate, of the lumbar area and mid back area, Vital Signs: 10:58 BP 155 / 77; Pulse 84; Resp 18; Temp 98.2(TE); Pulse Ox 100% on R/A; Weight 74.84 kg; ld1 Height 5 ft. 5 in. ; Pain 10/10; 12:17 BP 134 / 62; Pulse 76; Resp 16; Pulse Ox 100% on R/A; Pain 0/10; cm10 12:17 Pain 0/10; cm10 10:58 Body Mass Index 27.46 (74.84 kg, 165.1 cm) ld1 10:58 Pain Scale: Adult ld1 12:17 Pain Scale: Adult cm10 12:17 Pain Scale: Adult cm10 MDM: 10:54 Patient medically screened. snw 11:06 Differential diagnosis: arthritis, Cholelithiasis chronic back pain, Fatigue. Data snw reviewed: vital signs, nurses notes. I considered the following discharge prescriptions or medication management in the emergency department Medications were administered in the Emergency Department. See MAR. Counseling: I had a detailed discussion with the patient and/or guardian regarding the historical points, exam findings, and any diagnostic results supporting the discharge/admit diagnosis, the presence of at least one elevated blood pressure reading (>120/80) during this emergency department visit. 12:09 Response to treatment: the patient's symptoms have markedly improved after treatment. snw Special discussion: I have referred the patient to see his PCP for further evaluation of high blood pressure. Based on the history and exam findings, there is no indication for further emergent testing or inpatient evaluation. I discussed with the patient/guardian the need to see the back specialist for further evaluation of the symptoms. 12:11 ED course: Discussed with pt that steroid use will temp increase blood sugar, Pt to snw continue flexeril, tramadol, f/u for MRI. 06/14 11:01 Order name: CT Thoracic Spine Wo Cont; Complete Time: 11:40 snw 06/14 11:01 Order name: CT Lumbar Spine Wo Con; Complete Time: 11:54 snw Administered Medications: 11:33 Drug: Ketorolac IM 30 mg IM once Route: IM; Site: right gluteus; ll1 12:17 Follow up: Pain 0/10 Adult; Response: No adverse reaction; Pain is decreased cm10 Disposition: 13:42 Co-signature as Attending Physician, Dave Lazaro MD I reviewed the patient's care rt provided by the Advanced Practice Provider and agree with the diagnosis and treatment plan. Disposition Summary: 06/14/23 12:10 Discharge Ordered Notes: Location: Home snw Condition: Stable snw Diagnosis - Radiculopathy, thoracolumbar region snw - Intervertebral disc disorders with radiculopathy, lumbar region snw Followup: snw - With: Emergency Department - When: As needed - Reason: Worsening of condition Followup: snw - With: Private Physician - When: 2 - 3 days - Reason: Recheck today's complaints, Continuance of care, Re-evaluation by your physician Discharge Instructions: - Discharge Summary Sheet snw - Acute Back Pain, Adult snw - Herniated Disk snw - Lumbosacral Radiculopathy snw - Pinched Nerve snw - Degenerative Disk Disease snw - Back Injury Prevention snw Forms: - Medication Reconciliation Form snw - Thank You Letter snw - Antibiotic Education snw - Prescription Opioid Use snw - Patient Portal Instructions snw - Leadership Thank You Letter snw Prescriptions: - Prednisone 20 mg Oral Tablet - take 2 tablets ORAL route once daily for 5 days; 10 tablet; Refills: 0, Product snw Selection Permitted Signatures: Dispatcher [employer] Shayla Painter FNP-C [employer] SUPERVISOR-Cs[employer] Dash Ribera, RN RN ll1 Salma Enamorado RN RN ld1 Dave Lazaro MD MD rt Namita Varma RN cm10
[2023-06-14 12:28] VITALS: TEMP 98.2; O2SAT 100
[2023-06-14 12:30] VITALS: BP 134/62
== END 2023-06-14 12:24 | disposition home or self-care (01) ==
LOC: ER 10:48
DX: M54.15 Radiculopathy, thoracolumbar region (principal); E11.9 Type 2 diabetes mellitus without complications; I10 Essential (primary) hypertension; Z88.5 Allergy status to narcotic agent; Z91.040 Latex allergy status
CPT/HCPCS: 72128; 72131; 96372; 99284

== ENCOUNTER 2025-05-13 09:28 | Day surgery (SDC) | payer OTHER, MEDICARE ==
[2025-05-13 09:09] LABS: Hematocrit 36.9 % (36.0-45.0); Hemoglobin 12.8 g/dL (12.0-15.0); MCH 30.0 pg (27.0-35.0); MCHC 34.6 g/dL (32.0-36.0); MCV 86.7 fL (80-100); RBC Red Blood Cell Count 4.26 M/uL (3.86-4.86); White Blood Count 5.00 thou/uL (4.3-10.9)
[2025-05-13 09:10] LABS: Absolute Lymphocytes (CBC) 1.7 K/uL (0.7-4.9); MPV 8.5 fL (7.6-11.3); Nucleated RBC Absolute Count 0.0 (0-0); Nucleated Red Blood Cells % 0.1 % (0-0)
[2025-05-13 09:29] LABS: ALT/SGPT 26 U/L (13-56); AST/SGOT 17 U/L (15-37); Albumin 3.7 g/dL (3.4-5.0); Albumin/Globulin Ratio 1.1 (1.1-1.8); Alkaline Phosphatase 142 U/L (45-117); Anion Gap 8.4 mEq/L (5.0-15.0); BUN Blood Urea Nitrogen 17 mg/dL (7-18); Globulin 3.3 g/dL (2.3-3.5); Glucose Level 336 mg/dL (74-106); Lipase 48 U/L (13-75); Potassium 4.4 mEq/L (3.5-5.1)
[2025-05-13 09:31] LABS: Bilirubin Indirect, Calculated 0.3 mg/dL (0.2-0.8)
[2025-05-13] MEDS: NA CHLORIDE 0.9% 1,000 ML ONE (09:50)
--- NOTE | 2025-05-13 09:56 | RAD REPORT ---
EXAM: Chest Pa And Lat (2 Views) HISTORY: 70 years Female Pre-op pending cholecystectomy COMPARISON: No prior exams FINDINGS: LUNGS/PLEURA: The lungs are clear. No pleural effusions or pneumothorax. No pulmonary edema. CARDIAC/MEDIASTINUM: The cardiac silhouette is within normal limits. UPPER ABDOMEN: No significant abnormality. BONES: No acute abnormality. LINES/TUBES/OTHER: N/A IMPRESSION: No evidence of acute cardiopulmonary disease.
[2025-05-13] MEDS: INSULIN REGULAR (HUMAN) 100 UNIT/ML ONE ×2 (10:27→13:19)
[2025-05-13] MEDS ORDERED: ROCURONIUM 50 MG/5 ML VIAL IV ONE (10:54)
[2025-05-13] MEDS ORDERED: ONDANSETRON 4 MG/2 ML VIAL ONE (10:54)
[2025-05-13] MEDS ORDERED: GLYCOPYRROLATE 0.2 MG/ML SYR ONE ×2 (10:54→12:36)
[2025-05-13] MEDS ORDERED: MIDAZOLAM HCL 2 MG/2 ML INJ ONE (10:54)
[2025-05-13] MEDS ORDERED: FENTANYL CITR 100 MCG/2 ML ONE (10:54)
[2025-05-13] MEDS ORDERED: LIDOCAINE 1% MPF 5 ML VIAL ONE (10:54)
[2025-05-13] MEDS ORDERED: KETOROLAC 30 MG/ML INJ ONE (11:47)
[2025-05-13] MEDS: CEFOXITIN SODIUM 1 GM/VIAL ONE (12:00)
[2025-05-13] MEDS ORDERED: EPHEDRINE SULF 50 MG/ML VIAL ONE (12:05)
[2025-05-13] MEDS ORDERED: NEOSTIGMINE 1 MG/ML -10 ML VIAL ONE (12:36)
[2025-05-13] MEDS: Mastisol Adhesive Liq ONE (12:49)
--- NOTE | 2025-05-13 13:05 | P.BOP ---
Preoperative diagnosis: acute cholecystitis,symptomatic cholelithiasis Postoperative diagnosis: same Primary procedure: Laparoscopic cholecystectomy Estimated blood loss: <10cc Specimen: gb Findings: as above Anesthesia: General Complications: None Transferred to: Recovery Room Condition: Good
--- NOTE | 2025-05-13 14:21 | OP ---
Date of Procedure: 05/13/2025 Surgeon: Christofer Varma MD Preoperative Diagnoses: Acute cholecystitis, symptomatic cholelithiasis. Postoperative Diagnoses: Acute cholecystitis, symptomatic cholelithiasis. Procedure: Laparoscopic cholecystectomy. Estimated Blood Loss: Less than 10 cc. Specimen: Gallbladder. Anesthesia: General plus local. Indications: This is a case of a 70-year-old patient who came to us complaining of epigastric, right upper quadrant pain radiating to the back, associated with nausea, diagnosed with symptomatic cholel ithiasis, right upper quadrant abdominal pain, and one of the option include laparoscopic possible op en cholecystectomy that she wants. So the benefits, alternatives, and risks of laparoscopic possible open cholecystectomy fully explained, which include, but not limited to, infection, bleeding, damage to adjacent structures, anesthesia complication, choledocholithiasis, bile leak, pancreatitis, NV, a nd even . She also understands this may not relieve any symptoms, she might need more than one surgical intervention. She understood, signed a consent. Description Of Procedure: Patient was brought to the operating room, placed in supine position. Ane sthesia was induced without complication. Abdominal area was prepped and draped in a sterile fashion . Local anesthesia was applied followed by sharp incision of skin in the infraumbilical region. Inc ision was carried down to fascia, which was opened under direct vision. Peritoneum was encountered, opened under direct vision. Vicryl #1 placed inside of the fascia. Lisa trocar was carefully intr oduced. Pneumoperitoneum was obtained. I placed 3 more trocars, 5 mm each one of them in the epigas tric area, in the right upper quadrant using same technique which consisted of local anesthetic, arturo p incision of the skin, introduction of the trocars under direct vision. This allowed me to put a gr asper in the fundus of the gallbladder, another grasper in the infundibulum, retracting the gallbladd er in the inferolateral fashion exposing the triangle of Calot, obtaining critical view. Cystic duct and cystic artery were clearly isolated, freed circumferentially, and a connection between those and the gallbladder were clearly identified. I proceeded to ligate those by using at least 3 clips prox imal, 1 clip distal, and ligation in the middle. Same was done with the cystic artery. The gallblad omari was removed from the liver using Bovie cauterizer and removed from abdominal cavity using EndoCat ch through the umbilical incision. The area was inspected once again. No bile leak. No bleeding. Clips were intact. At that moment, I proceeded to remove the trocars under direct vision, deflated p neumoperitoneum, closed the fascia with #1 Vicryl, irrigated subcutaneous tissue, closed that with 3- 0 chromic and the skin in a subcuticular fashion. Patient tolerated the procedure well. Patient sen t to recovery in stable condition. HE/CRISTOBAL Voice ID: [id number] Report ID: [id number]
--- NOTE | 2025-05-13 14:26 | DS ---
Diagnoses: Acute cholecystitis, symptomatic cholelithiasis. Procedure: Laparoscopic cholecystectomy. Condition: Stable. Disposition: Home. Activity: As tolerated. No heavy lifting. Discharge Instructions: Follow up in my office in 1 week, call for appointment at [phone]. Keep a elsa dry for 48 hours, then may shower. Keep Steri-Strip intact. HE/CRISTOBAL Voice ID: [id number] Report ID: [id number]
[2025-05-13 14:38] VITALS: BP 136/55; TEMP 97; O2SAT 100
== END 2025-05-13 14:36 | disposition home or self-care (01) ==
LOC: OR 09:28
PROVIDERS: ATTEND Surgery
PROC: 0FT44ZZ Resection of Gallbladder, Percutaneous Endoscopic Approach (ICD-10-PCS; principal; 2025-05-13 11:45)
DX: K80.10 Calculus of gallbladder with chronic cholecystitis without obstruction (principal)
CPT/HCPCS: 47562; 93005; 85025; 80048; 36415; 82947; 80076; 88304; 83690; 71046; J2704; J2710; J2003; J2250; J3010; J0694; J2405; J1815 ×2; J7030